=== PATIENT | male | born 1955 | race Caucasian/White ===

== ENCOUNTER 2021-03-30 06:22 | Outpatient (REF) | payer MEDICARE, SELFPAY ==
[2021-03-30 11:18] LABS: MANUAL DIFF FLAG NO
[2021-03-30 11:36] LABS: Basophils Absolute Auto 0.1 X10*3/uL (0.0-0.2); Basophils Percent Auto 0.9 % (0-2); Eosinophils Absolute Auto 0.3 X10*3/uL (0.0-0.4); Eosinophils Percent Auto 5.7 % (0-4); Hematocrit 45.7 % (42-52); Hemoglobin 14.9 g/dl (14.0-18.0); Imm Gran Abs Auto 0.04 X10*3/uL (0.00-0.03); Imm Gran Pct Auto 0.7 % (0.0-0.4); Lymphocytes Absolute Auto 2.1 X10*3/uL (1.2-4.9); Lymphocytes Percent Auto 36.7 % (20-40); Mean Corpuscular HGB Conc 32.6 g/dl (31.0-36.0); Mean Corpuscular Hemoglobin 28.7 pg (27.0-33.0); Mean Corpuscular Volume 87.9 fL (80-98); Mean Platelet Volume 10.2 fL (9.4-12.4); Monocytes Absolute Auto 0.4 X10*3/uL (0.1-1.2); Monocytes Percent Auto 6.3 % (2-11); Neutrophils Absolute Auto 2.8 X10*3/uL (2.0-8.3); Neutrophils Percent Auto 49.7 % (45-73); Platelet Count 210 X10*3/uL (160-400); Red Cell Distribution Width 13.2 % (11.0-16.0); White Blood Count 5.6 X10*3/uL (4.8-10.8)
[2021-03-30 12:01] LABS: Estimated Average Glucose 263 mg/dL; Hemoglobin A1c % 10.8 %
[2021-03-30 12:05] LABS: Alanine Aminotransferase 56 U/L (0-40); Albumin Level 4.2 g/dL (3.5-5.0); Alkaline Phosphatase 81 U/L (39-117); Anion Gap 16 (12-20); Aspartate Amino Transferase 32 U/L (5-37); Bilirubin Total 1.3 mg/dL (0.0-1.0); Blood Urea Nitrogen 16 mg/dL (9-16); Calcium 9.1 mg/dL (8.4-10.2); Carbon Dioxide 25 mmol/L (22-29); Chloride 103 mmol/L (96-108); Cholesterol 169 mg/dL; Estimated Glomerular Filt Rate > 60; Glucose Fasting 296 mg/dL (60-99); HDL Cholesterol 38 mg/dL; LDL Cholesterol Calculated 93 mg/dl; Potassium 3.9 mmol/L (3.3-5.1); Sodium 140 mmol/L (135-145); Total Protein 6.7 g/dL (6.5-8.0); Triglycerides 191 mg/dL
[2021-03-30 12:28] LABS: Free T4 (Free Thyroxine) 1.17 ng/dL (0.71-1.85); Thyroid Stimulating Hormone 6.23 uIU/mL (0.32-4.0)
[2021-03-30 12:34] LABS: Creatinine Urine 146.44 mg/dL; Microalbum/Creatinine Ratio Ur 180.2 ug/mg cr
[2021-03-30 13:00] LABS: Prostate Specific Antigen 2.69 ng/mL (<0.05-4.0)
== END 2021-03-30 06:23 | disposition home or self-care (01) ==
LOC: HO.HMGCLDS 06:22
PROVIDERS: PCP Internal Medicine; Visit Provider Internal Medicine
DX: E11.9 Type 2 diabetes mellitus without complications (principal); I10 Essential (primary) hypertension; G47.33 Obstructive sleep apnea (adult) (pediatric); E78.00 Pure hypercholesterolemia, unspecified; E03.9 Hypothyroidism, unspecified
CPT/HCPCS: 36415; 80053; 80061; 82043; 83036; 84153; 84439; 84443; 85025

== ENCOUNTER 2021-07-19 12:51 | Outpatient (REF) | payer MEDICARE, SELFPAY ==
[2021-07-19 13:58] LABS: MANUAL DIFF FLAG NO
[2021-07-19 14:03] LABS: Basophils Absolute Auto 0.1 X10*3/uL (0.0-0.2); Basophils Percent Auto 0.6 % (0-2); Eosinophils Absolute Auto 0.1 X10*3/uL (0.0-0.4); Eosinophils Percent Auto 1.4 % (0-4); Hemoglobin 16.1 g/dl (14.0-18.0); Imm Gran Abs Auto 0.04 X10*3/uL (0.00-0.03); Imm Gran Pct Auto 0.5 % (0.0-0.4); Lymphocytes Absolute Auto 2.3 X10*3/uL (1.2-4.9); Lymphocytes Percent Auto 26.9 % (20-40); Mean Corpuscular HGB Conc 32.9 g/dl (31.0-36.0); Mean Corpuscular Hemoglobin 28.3 pg (27.0-33.0); Mean Corpuscular Volume 86.3 fL (80-98); Mean Platelet Volume 10.6 fL (9.4-12.4); Monocytes Absolute Auto 0.5 X10*3/uL (0.1-1.2); Monocytes Percent Auto 5.3 % (2-11); Neutrophils Absolute Auto 5.6 X10*3/uL (2.0-8.3); Neutrophils Percent Auto 65.3 % (45-73); Platelet Count 254 X10*3/uL (160-400); Red Blood Count 5.68 X10*6/uL (4.60-5.80); Red Cell Distribution Width 13.5 % (11.0-16.0); White Blood Count 8.5 X10*3/uL (4.8-10.8)
[2021-07-19 14:18] LABS: Creatinine Urine 227.23 mg/dL
[2021-07-19 14:32] LABS: Alanine Aminotransferase 25 U/L (0-40); Albumin Level 4.2 g/dL (3.5-5.0); Alkaline Phosphatase 76 U/L (39-117); Anion Gap 13 (12-20); Aspartate Amino Transferase 17 U/L (5-37); Bilirubin Total 1.1 mg/dL (0.0-1.0); Blood Urea Nitrogen 13 mg/dL (9-16); Calcium 9.6 mg/dL (8.4-10.2); Carbon Dioxide 27 mmol/L (22-29); Chloride 105 mmol/L (96-108); Estimated Glomerular Filt Rate > 60; Glucose Random 145 mg/dL (60-115); Sodium 141 mmol/L (135-145); Total Protein 6.7 g/dL (6.5-8.0)
[2021-07-19 14:34] LABS: Estimated Average Glucose 171 mg/dL; Hemoglobin A1c % 7.6 %
[2021-07-19 14:41] LABS: Microalbum/Creatinine Ratio Ur 204.1 ug/mg cr
== END 2021-07-19 12:52 | disposition home or self-care (01) ==
LOC: HO.HMGCLDS 12:51
PROVIDERS: PCP Internal Medicine; Visit Provider Internal Medicine
DX: I10 Essential (primary) hypertension (principal); E11.9 Type 2 diabetes mellitus without complications
CPT/HCPCS: 36415; 80053; 82043; 83036; 85025

== ENCOUNTER 2021-10-31 07:06 | Outpatient (REF) | payer MEDICARE, SELFPAY ==
[2021-10-31 11:45] LABS: MANUAL DIFF FLAG NO
[2021-10-31 11:56] LABS: Basophils Percent Auto 0.5 % (0-2); Eosinophils Absolute Auto 0.1 X10*3/uL (0.0-0.4); Eosinophils Percent Auto 1.6 % (0-4); Hematocrit 51.3 % (42.0-52.0); Hemoglobin 16.7 g/dl (14.0-18.0); Imm Gran Abs Auto 0.04 X10*3/uL (0.00-0.03); Imm Gran Pct Auto 0.5 % (0.0-0.4); Lymphocytes Absolute Auto 2.1 X10*3/uL (1.2-4.9); Lymphocytes Percent Auto 27.6 % (20-40); Mean Corpuscular HGB Conc 32.6 g/dl (31.0-36.0); Mean Corpuscular Hemoglobin 28.4 pg (27.0-33.0); Mean Corpuscular Volume 87.2 fL (80.0-98.0); Mean Platelet Volume 11.2 fL (9.4-12.4); Monocytes Absolute Auto 0.6 X10*3/uL (0.1-1.2); Monocytes Percent Auto 7.4 % (2-11); Neutrophils Absolute Auto 4.6 x10*3/uL (2.0-8.3); Neutrophils Percent Auto 62.4 % (45-73); Platelet Count 231 X10*3/uL (160-400); Red Blood Count 5.88 X10*6/uL (4.60-5.80); Red Cell Distribution Width 13.8 % (11.0-16.0); White Blood Count 7.4 X10*3/uL (4.8-10.8)
[2021-10-31 12:13] LABS: Creatinine Urine 93.49 mg/dL; Microalbum/Creatinine Ratio Ur 374.3 ug/mg cr
[2021-10-31 12:26] LABS: Alanine Aminotransferase 21 U/L (0-40); Alkaline Phosphatase 86 U/L (39-117); Anion Gap 14 (12-20); Aspartate Amino Transferase 16 U/L (5-37); Bilirubin Total 1.6 mg/dL (0.0-1.0); Blood Urea Nitrogen 13 mg/dL (9-16); Calcium 9.3 mg/dL (8.4-10.2); Carbon Dioxide 27 mmol/L (22-29); Chloride 103 mmol/L (96-108); Estimated Glomerular Filt Rate > 60; Glucose Random 225 mg/dL (60-115); Potassium 3.9 mmol/L (3.3-5.1); Sodium 140 mmol/L (135-145); Total Protein 6.7 g/dL (6.5-8.0)
[2021-10-31 12:30] LABS: Free T4 (Free Thyroxine) 1.14 ng/dL (0.71-1.85); Thyroid Stimulating Hormone 1.67 uIU/mL (0.32-4.0)
[2021-10-31 12:35] LABS: Estimated Average Glucose 200 mg/dL; Hemoglobin A1c % 8.6 %
== END 2021-10-31 07:07 | disposition home or self-care (01) ==
LOC: HO.HMGCLDS 07:06
PROVIDERS: PCP Internal Medicine; Visit Provider Internal Medicine
DX: E03.9 Hypothyroidism, unspecified (principal); E11.9 Type 2 diabetes mellitus without complications; I10 Essential (primary) hypertension; G47.33 Obstructive sleep apnea (adult) (pediatric)
CPT/HCPCS: 36415; 80053; 82043; 83036; 84439; 84443; 85025

== ENCOUNTER 2022-05-03 06:08 | Outpatient (REF) | payer MEDICARE, SELFPAY ==
[2022-05-03 10:58] LABS: MANUAL DIFF FLAG NO
[2022-05-03 11:03] LABS: Basophils Absolute Auto 0.1 X10*3/uL (0.0-0.2); Basophils Percent Auto 0.8 % (0-2); Eosinophils Absolute Auto 0.2 X10*3/uL (0.0-0.4); Hematocrit 50.1 % (42.0-52.0); Hemoglobin 16.4 g/dl (14.0-18.0); Imm Gran Abs Auto 0.03 X10*3/uL (0.00-0.03); Imm Gran Pct Auto 0.4 % (0.0-0.4); Lymphocytes Absolute Auto 2.4 X10*3/uL (1.2-4.9); Lymphocytes Percent Auto 32.3 % (20-40); Mean Corpuscular HGB Conc 32.7 g/dl (31.0-36.0); Mean Corpuscular Hemoglobin 29.3 pg (27.0-33.0); Mean Corpuscular Volume 89.5 fL (80.0-98.0); Mean Platelet Volume 10.6 fL (9.4-12.4); Monocytes Absolute Auto 0.5 X10*3/uL (0.1-1.2); Monocytes Percent Auto 6.2 % (2-11); Neutrophils Absolute Auto 4.2 x10*3/uL (2.0-8.3); Neutrophils Percent Auto 57.3 % (45-73); Platelet Count 218 X10*3/uL (160-400); Red Cell Distribution Width 14.4 % (11.0-16.0); White Blood Count 7.3 X10*3/uL (4.8-10.8)
[2022-05-03 11:17] LABS: Estimated Average Glucose 123 mg/dL; Hemoglobin A1c % 5.9 %
[2022-05-03 11:26] LABS: Alanine Aminotransferase 19 U/L (0-40); Albumin Level 4.1 g/dL (3.5-5.0); Alkaline Phosphatase 73 U/L (39-117); Anion Gap 14 (12-20); Aspartate Amino Transferase 16 U/L (5-37); Blood Urea Nitrogen 15 mg/dL (9-16); Calcium 9.2 mg/dL (8.4-10.2); Carbon Dioxide 26 mmol/L (22-29); Chloride 107 mmol/L (96-108); Cholesterol 144 mg/dL; Estimated Glomerular Filt Rate > 60; Glucose Fasting 136 mg/dL (60-99); HDL Cholesterol 42 mg/dL; LDL Cholesterol Calculated 88 mg/dl; Potassium 3.9 mmol/L (3.3-5.1); Sodium 143 mmol/L (135-145); Total Protein 6.7 g/dL (6.5-8.0); Triglycerides 73 mg/dL
[2022-05-03 11:56] LABS: Creatinine Urine 100.46 mg/dL; Microalbum/Creatinine Ratio Ur 223.9 ug/mg cr
== END 2022-05-03 06:09 | disposition home or self-care (01) ==
LOC: HO.HMGCLDS 06:08
PROVIDERS: Visit Provider Internal Medicine
DX: E11.9 Type 2 diabetes mellitus without complications (principal); I10 Essential (primary) hypertension; E78.00 Pure hypercholesterolemia, unspecified
CPT/HCPCS: 36415; 80053; 80061; 82043; 83036; 85025

== ENCOUNTER 2022-05-18 11:31 | Outpatient (REF) | payer MEDICARE, SELFPAY ==
[2022-05-18 14:29] LABS: Free T4 (Free Thyroxine) 1.22 ng/dL (0.71-1.85); Prostate Specific Antigen Scr 2.84 ng/mL (<0.05-4.0); Thyroid Stimulating Hormone 0.44 uIU/mL (0.32-4.0)
== END 2022-05-18 11:32 | disposition home or self-care (01) ==
LOC: HO.HMGCLDS 11:31
PROVIDERS: Visit Provider Internal Medicine
DX: Z12.5 Encounter for screening for malignant neoplasm of prostate (principal); E03.9 Hypothyroidism, unspecified; N40.0 Benign prostatic hyperplasia without lower urinary tract symptoms
CPT/HCPCS: 36415; 84153; 84439; 84443

== ENCOUNTER 2022-11-06 13:42 | Outpatient (REF) | payer MEDICARE, SELFPAY ==
[2022-11-06 16:49] LABS: MANUAL DIFF FLAG NO
[2022-11-06 16:53] LABS: Basophils Absolute Auto 0.1 X10*3/uL (0.0-0.2); Basophils Percent Auto 0.6 % (0-2); Eosinophils Absolute Auto 0.1 X10*3/uL (0.0-0.4); Eosinophils Percent Auto 0.8 % (0-4); Hematocrit 48.1 % (42.0-52.0); Hemoglobin 15.9 g/dl (14.0-18.0); Imm Gran Abs Auto 0.04 X10*3/uL (0.00-0.03); Imm Gran Pct Auto 0.5 % (0.0-0.4); Lymphocytes Absolute Auto 2.2 X10*3/uL (1.2-4.9); Lymphocytes Percent Auto 25.3 % (20-40); Mean Corpuscular HGB Conc 33.1 g/dl (31.0-36.0); Mean Corpuscular Hemoglobin 28.5 pg (27.0-33.0); Mean Corpuscular Volume 86.2 fL (80.0-98.0); Mean Platelet Volume 10.6 fL (9.4-12.4); Monocytes Absolute Auto 0.5 X10*3/uL (0.1-1.2); Monocytes Percent Auto 5.5 % (2-11); Neutrophils Percent Auto 67.3 % (45-73); Platelet Count 275 X10*3/uL (160-400); Red Blood Count 5.58 X10*6/uL (4.60-5.80); Red Cell Distribution Width 12.7 % (11.0-16.0); White Blood Count 8.9 X10*3/uL (4.8-10.8)
[2022-11-06 17:44] LABS: Alanine Aminotransferase 24 U/L (0-40); Albumin Level 4.2 g/dL (3.5-5.0); Alkaline Phosphatase 70 U/L (39-117); Anion Gap 15 (12-20); Aspartate Amino Transferase 18 U/L (5-37); Bilirubin Total 1.7 mg/dL (0.0-1.0); Blood Urea Nitrogen 18 mg/dL (9-16); Calcium 9.2 mg/dL (8.4-10.2); Carbon Dioxide 29 mmol/L (22-29); Chloride 101 mmol/L (96-108); Creatinine Urine 111.11 mg/dL; Estimated Glomerular Filt Rate > 60; Glucose Random 98 mg/dL (60-115); Microalbum/Creatinine Ratio Ur 199.8 ug/mg cr; Potassium 3.9 mmol/L (3.3-5.1); Sodium 141 mmol/L (135-145); Thyroid Stimulating Hormone 0.99 uIU/mL (0.32-4.0); Total Protein 6.8 g/dL (6.5-8.0)
[2022-11-07 05:17] LABS: Estimated Average Glucose 134 mg/dL; Hemoglobin A1c % 6.3 %
== END 2022-11-06 13:43 | disposition home or self-care (01) ==
LOC: HO.HMGCLDS 13:42
PROVIDERS: PCP Internal Medicine; Visit Provider Internal Medicine
DX: E11.9 Type 2 diabetes mellitus without complications (principal); E03.9 Hypothyroidism, unspecified; I10 Essential (primary) hypertension; G47.33 Obstructive sleep apnea (adult) (pediatric)
CPT/HCPCS: 36415; 80053; 82043; 83036; 84439; 84443; 85025

== ENCOUNTER 2023-03-12 09:44 | Outpatient (REF) | payer MEDICARE, SELFPAY ==
[2023-03-12 11:21] LABS: MANUAL DIFF FLAG NO
[2023-03-12 11:43] LABS: Basophils Absolute Auto 0.1 X10*3/uL (0.0-0.2); Basophils Percent Auto 0.9 % (0-2); Eosinophils Absolute Auto 0.1 X10*3/uL (0.0-0.4); Eosinophils Percent Auto 1.5 % (0-4); Estimated Average Glucose 128 mg/dL; Hemoglobin 18.1 g/dl (14.0-18.0); Hemoglobin A1c % 6.1 %; Imm Gran Abs Auto 0.04 X10*3/uL (0.00-0.03); Imm Gran Pct Auto 0.5 % (0.0-0.4); Lymphocytes Absolute Auto 2.1 X10*3/uL (1.2-4.9); Lymphocytes Percent Auto 27.8 % (20-40); Mean Corpuscular HGB Conc 32.7 g/dl (31.0-36.0); Mean Corpuscular Hemoglobin 28.8 pg (27.0-33.0); Mean Corpuscular Volume 87.9 fL (80.0-98.0); Mean Platelet Volume 10.4 fL (9.4-12.4); Monocytes Absolute Auto 0.4 X10*3/uL (0.1-1.2); Monocytes Percent Auto 5.8 % (2-11); Neutrophils Absolute Auto 4.7 x10*3/uL (2.0-8.3); Neutrophils Percent Auto 63.5 % (45-73); Platelet Count 233 X10*3/uL (160-400); Red Blood Count 6.29 X10*6/uL (4.60-5.80); Red Cell Distribution Width 13.4 % (11.0-16.0); White Blood Count 7.4 X10*3/uL (4.8-10.8)
[2023-03-12 11:44] LABS: Hematocrit 55.3 % (42.0-52.0)
[2023-03-12 12:20] LABS: Creatinine Urine 137.58 mg/dL; Microalbum/Creatinine Ratio Ur 262.3 ug/mg cr
[2023-03-12 12:20] LABS: Alanine Aminotransferase 27 U/L (0-40); Albumin Level 4.5 g/dL (3.5-5.0); Alkaline Phosphatase 74 U/L (39-117); Anion Gap 12 (12-20); Aspartate Amino Transferase 20 U/L (5-37); Bilirubin Total 1.7 mg/dL (0.0-1.0); Blood Urea Nitrogen 15 mg/dL (9-16); Carbon Dioxide 30 mmol/L (22-29); Chloride 106 mmol/L (96-108); Estimated Glomerular Filt Rate > 60; Glucose Random 131 mg/dL (60-115); Potassium 4.4 mmol/L (3.3-5.1); Sodium 144 mmol/L (135-145); Total Protein 7.2 g/dL (6.5-8.0)
[2023-03-12 12:27] LABS: Free T4 (Free Thyroxine) 1.06 ng/dL (0.71-1.85); Thyroid Stimulating Hormone 1.52 uIU/mL (0.32-4.0)
== END 2023-03-12 09:45 | disposition home or self-care (01) ==
LOC: HO.HMGCLDS 09:44
PROVIDERS: PCP Internal Medicine; Visit Provider Internal Medicine
DX: E11.9 Type 2 diabetes mellitus without complications (principal); I10 Essential (primary) hypertension; E03.9 Hypothyroidism, unspecified
CPT/HCPCS: 36415; 80053; 82043; 83036; 84439; 84443; 85025

== ENCOUNTER 2023-04-10 08:22 | Day surgery (SDC) | payer MEDICARE, SELFPAY ==
--- NOTE | 2023-04-09 12:21 | P.CONAN_ITS ---
Documented by User: Fifi Vernon NP 04/09/23 12:24 HPI - Anesthesia Eval Consult details Narrative: 67yo M for Colonoscopy [facility] Past Medical History Medical History (Updated 04/09/23 @ 12:22 by Fifi Vernon NP) Diabetes HLD (hyperlipidemia) HTN (hypertension) Hypothyroid Nephrolithiasis CONCEPCION (obstructive sleep apnea) Surgical History Surgical History (Updated 04/10/23 @ 09:14 by Katy Oro RN) Hx of colonoscopy Social History Social History Patient Tobacco Use Status: Former Tobacco user Are you DNR?: No Advance Directives: No Advance Directives Information Provided: Yes Nutrition Risks: No Nutritional Risk Meds Allergies Allergy/AdvReac Type Severity Reaction Status Date / Time ibuprofen [From Motrin] AdvReac Mild NAUSEA & Verified 04/10/23 09:14 VOMITING PCN Allergy Unknown unknown Uncoded 04/10/23 09:14 reaction Home Medications Medication Instructions Recorded Confirmed Last Taken Type dulaglutide 0.75 mg/0.5 mL mg subcut QWEEK 04/09/23 04/09/23 Unknown History subcutaneous pen injector (Trulicity) glipizide 5 mg tablet 10 mg PO BID 04/09/23 04/09/23 Unknown History levothyroxine 200 mcg tablet 200 mcg PO DAILY 04/09/23 04/09/23 Unknown History lisinopril 5 mg tablet 5 mg PO DAILY 04/09/23 04/09/23 Unknown History metformin 500 mg tablet 1,000 mg PO BID 04/09/23 04/09/23 Unknown History simvastatin 20 mg tablet 20 mg PO BEDTIME 04/09/23 04/09/23 Unknown History Exam Exam Date and Time: April 09, 2023 1221 Pertinent Lab Results Pertinent Lab Results: Laboratory Tests 03/12/23 03/12/23 09:50 09:50 WBC 7.4 Hgb 18.1 H Hct 55.3 H Sodium 144 Potassium 4.4 Chloride 106 Carbon Dioxide 30 H BUN 15 Creatinine 1.04 Assessment and Plan Assessment Anesthesia Assessment: Chart Reviewed Documented by User: Antoine Campa MD 04/10/23 09:20 [facility] Past Medical History Medical History (Updated 04/09/23 @ 12:22 by Fifi Vernon NP) Diabetes HLD (hyperlipidemia) HTN (hypertension) Hypothyroid Nephrolithiasis CONCEPCION (obstructive sleep apnea) Family History Family history of problems with anesthesia: No Surgical History Surgical History (Updated 04/10/23 @ 09:14 by Katy Oro RN) Hx of colonoscopy History of Problems with Anesthesia: No Social History Social History Patient Tobacco Use Status: Former Tobacco user Are you DNR?: No Advance Directives: No Advance Directives Information Provided: Yes Nutrition Risks: No Nutritional Risk Meds Allergies Allergy/AdvReac Type Severity Reaction Status Date / Time ibuprofen [From Motrin] AdvReac Mild NAUSEA & Verified 04/10/23 09:14 VOMITING PCN Allergy Unknown unknown Uncoded 04/10/23 09:14 reaction Home Medications Medication Instructions Recorded Confirmed Last Taken Type dulaglutide 0.75 mg/0.5 mL mg subcut QWEEK 04/09/23 04/09/23 Unknown History subcutaneous pen injector (Trulicity) glipizide 5 mg tablet 10 mg PO BID 04/09/23 04/09/23 Unknown History levothyroxine 200 mcg tablet 200 mcg PO DAILY 04/09/23 04/09/23 Unknown History lisinopril 5 mg tablet 5 mg PO DAILY 04/09/23 04/09/23 Unknown History metformin 500 mg tablet 1,000 mg PO BID 04/09/23 04/09/23 Unknown History simvastatin 20 mg tablet 20 mg PO BEDTIME 04/09/23 04/09/23 Unknown History Exam Airway Mallampati Class: III TM Dist: >3cm Neck ROM: Limited Heart: rrr Lungs: cta Assessment and Plan Assessment Anesthesia Assessment: Anesthesia Plan Discussed Final Anesthetic Review Family History of Problems with Anesthesia: No History of Problems with Anesthesia: No NPO: Yes ASA Class: III Final Preanesthetic Review: No Changes in Pt Med Stat, Meds/Allgs Chart Reviewed, Consent Obtained/Reviewed and Anes Risks/Benef Reviewed Patient Risk: Intermediate Procedure Risk: Low Anesthetic Plan Anesthetic Plan: MAC: and Agree w/ Assess. and Plan Disposition: Standard PACU
[2023-04-10] MEDS: Lactated Ringers 1,000 ML 100 ML IVCONT (08:45)
[2023-04-10 08:57] VITALS: BMI 35.5
[2023-04-10 08:59] VITALS: BP 160/76; PULSE 82; RESP 18; TEMP 36.6; O2SAT 97
[2023-04-10 09:14] LABS: Glucose, Whole Blood 172 mg/dL (60-115)
--- NOTE | 2023-04-10 09:35 | MHC.SHP ---
Pre-Procedural Eval Section A Date of Service: 04/10/23 The patient is an INPATIENT: No Changes since office visit: No Cold of Flu in the past 2 weeks, No New Medical Problems, No Changes in Medication and No Patient answered all questions The History & Physical has been completed within 30 days and I have reviewed it.: Yes Section B Chief Complaint: Encounter for screening for malignant neoplasm Allergies: Allergies Allergy/AdvReac Type Severity Reaction Status Date / Time ibuprofen [From Motrin] AdvReac Mild NAUSEA & Verified 04/10/23 09:14 VOMITING PCN Allergy Unknown unknown Uncoded 04/10/23 09:14 reaction Plan I have reviewed the history and physical and performed a pertinent physical examination on my patient. No changes have occurred unless specified. Time Spent With Patient Time: Total time managing care of this patient today ____ minutes.
--- NOTE | 2023-04-10 10:16 | PM.OP ---
Brief Operative Note Date of Service: 04/10/23 Pre-op diagnosis: screening Post-op diagnosis: same Procedure: colonoscopy Surgeon: Dat Hyde Anesthesia: MAC Was an University Teacher used for this Procedure?: No Estimated blood loss (mL): 5 Pathology: other Condition: stable Disposition: PACU
[2023-04-10 10:22] VITALS: BP 91/57; PULSE 73; RESP 20; TEMP 36.4; O2SAT 113
[2023-04-10 10:37] VITALS: BP 113/65; PULSE 73; RESP 20; TEMP 36.4; O2SAT 94
--- NOTE | 2023-04-10 12:00 | OP_ITS ---
DATE OF SERVICE: 04/10/2023 SURGEON: Dat Hyde MD INDICATIONS: Colon cancer screening. PREOPERATIVE DIAGNOSIS: POSTOPERATIVE DIAGNOSIS: PROCEDURE PERFORMED: Colonoscopy to the terminal ileum with snare polypectomy and biopsy. ESTIMATED BLOOD LOSS: COMPLICATIONS: ANESTHESIA: Monitored anesthesia care. ASSISTANTS: SPECIMENS: DESCRIPTION OF PROCEDURE: A history and physical was performed the risks and benefits of the procedure were explained to the patient. Informed consent was obtained. The patient was placed in the left lateral decubitus position. A digital rectal exam was performed and was found to be normal. The Olympus pediatric video colonoscope was introduced into the rectum and advanced to the cecum. The cecum was identified by transillumination, palpation, and identification of ileocecal valve. Examination was performed. The scope was removed. He tolerated the procedure well and was returned to the recovery area in stable condition. FINDINGS: The terminal ileum was examined and appeared normal. The visualized colonic mucosa was normal. The quality of the prep was good. Three polyps were identified, 2 were removed with a cold snare measuring less than 10 mm. These were located at 50 and 15 cm. At 25 cm was a less than 5 mm sessile polyp that was removed with a biopsy forceps. Retroflexed examination showed internal hemorrhoids that were moderate in size. There was moderate sigmoid diverticulosis with scattered diverticula throughout the remainder of the colon. IMPRESSION: Colon polyps. RECOMMENDATION: Follow up the biopsy results. MD PIOTR Cabrera/CARLA / [id number]
== END 2023-04-10 11:03 | disposition home or self-care (01) ==
PROVIDERS: PCP Internal Medicine; Visit Provider Internal Medicine Gastroenterology
PROC: 0DJD8ZZ Inspection of Lower Intestinal Tract, Via Natural or Artificial Opening Endoscopic (ICD-10-PCS; CPT 45378; principal; 2023-04-10 09:30)
DX: Z12.11 Encounter for screening for malignant neoplasm of colon (principal); D12.5 Benign neoplasm of sigmoid colon; K63.5 Polyp of colon; K57.30 Diverticulosis of large intestine without perforation or abscess without bleeding; K64.8 Other hemorrhoids; I10 Essential (primary) hypertension; E78.00 Pure hypercholesterolemia, unspecified; E11.9 Type 2 diabetes mellitus without complications; E03.9 Hypothyroidism, unspecified; G47.33 Obstructive sleep apnea (adult) (pediatric); Z79.84 Long term (current) use of oral hypoglycemic drugs; Z79.899 Other long term (current) drug therapy; Z88.0 Allergy status to penicillin; Z87.442 Personal history of urinary calculi; Z99.89 Dependence on other enabling machines and devices
CPT/HCPCS: 45385; 45380; 82947; 88305

== ENCOUNTER 2023-07-16 06:45 | Outpatient (REF) | payer MEDICARE, SELFPAY ==
[2023-07-16 11:20] LABS: MANUAL DIFF FLAG NO
[2023-07-16 11:37] LABS: Basophils Absolute Auto 0.1 X10*3/uL (0.0-0.2); Basophils Percent Auto 0.7 % (0-2); Eosinophils Absolute Auto 0.2 X10*3/uL (0.0-0.4); Eosinophils Percent Auto 2.2 % (0-4); Hematocrit 50.4 % (42.0-52.0); Hemoglobin 16.6 g/dl (14.0-18.0); Imm Gran Abs Auto 0.02 X10*3/uL (0.00-0.03); Imm Gran Pct Auto 0.3 % (0.0-0.4); Lymphocytes Absolute Auto 1.9 X10*3/uL (1.2-4.9); Lymphocytes Percent Auto 25.1 % (20-40); Mean Corpuscular HGB Conc 32.9 g/dl (31.0-36.0); Mean Corpuscular Hemoglobin 28.9 pg (27.0-33.0); Mean Corpuscular Volume 87.7 fL (80.0-98.0); Mean Platelet Volume 10.4 fL (9.4-12.4); Monocytes Absolute Auto 0.5 X10*3/uL (0.1-1.2); Monocytes Percent Auto 6.7 % (2-11); Neutrophils Absolute Auto 4.8 x10*3/uL (2.0-8.3); Platelet Count 237 X10*3/uL (160-400); Red Blood Count 5.75 X10*6/uL (4.60-5.80); Red Cell Distribution Width 13.3 % (11.0-16.0); White Blood Count 7.4 X10*3/uL (4.8-10.8)
[2023-07-16 11:38] LABS: Appearance Urine Clear; Color Urine Yellow; Glucose Urine UA Negative (Negative); Leukocyte Esterase Urine Negative (Negative); Nitrite Urine Negative (Negative); PH 5.5 (5.0-9.0); UMIC TRIGGER UA YES; Urine Blood Negative (Negative); Urine Ketones Negative (Negative); Urine Protein 30 (1+) mg/dL (Neg-Trace)
[2023-07-16 11:41] LABS: Bacteria Urine None Seen (None Seen); Hyaline Casts Urine 0-2 /LPF (0-2); RBC Urine 0-2 /HPF (0-2); Squamous Epithelial Cell Urine 0-2 /HPF (0-2); WBC Urine 0-5 /HPF (0-5)
[2023-07-16 12:12] LABS: Estimated Average Glucose 114 mg/dL; Hemoglobin A1c % 5.6 % (<6.0)
[2023-07-16 12:22] LABS: Alanine Aminotransferase 29 U/L (0-40); Alkaline Phosphatase 63 U/L (39-117); Anion Gap 14 (12-20); Aspartate Amino Transferase 22 U/L (5-37); Bilirubin Total 1.9 mg/dL (0.0-1.0); Blood Urea Nitrogen 17 mg/dL (9-16); Calcium 9.6 mg/dL (8.4-10.2); Carbon Dioxide 25 mmol/L (22-29); Chloride 107 mmol/L (96-108); Cholesterol 145 mg/dL (<200); Estimated Glomerular Filt Rate > 60; Free T4 (Free Thyroxine) 1.23 ng/dL (0.71-1.85); Glucose Fasting 140 mg/dL (60-99); HDL Cholesterol 37 mg/dL (>40); LDL Cholesterol Calculated 93 mg/dL (<100); Potassium 3.9 mmol/L (3.3-5.1); Sodium 142 mmol/L (135-145); Thyroid Stimulating Hormone 0.58 uIU/mL (0.32-4.0); Total Protein 7.1 g/dL (6.5-8.0); Triglycerides 79 mg/dL (<150)
[2023-07-16 12:36] LABS: Prostate Specific Antigen Scr 3.75 ng/mL (<0.05-4.0)
[2023-07-16 13:07] LABS: Creatinine Urine 130.91 mg/dL; Microalbum/Creatinine Ratio Ur 135.2 ug/mg cr (<30)
== END 2023-07-16 06:46 | disposition home or self-care (01) ==
LOC: HO.HMGCLDS 06:45
PROVIDERS: PCP Internal Medicine; Visit Provider Internal Medicine
DX: Z12.5 Encounter for screening for malignant neoplasm of prostate (principal); E11.9 Type 2 diabetes mellitus without complications; I10 Essential (primary) hypertension; E78.00 Pure hypercholesterolemia, unspecified; N40.0 Benign prostatic hyperplasia without lower urinary tract symptoms; E03.9 Hypothyroidism, unspecified
CPT/HCPCS: 36415; 80053; 80061; 81001; 82043; 83036; 84153; 84439; 84443; 85025

== ENCOUNTER 2023-08-15 14:04 | Outpatient (REF) | payer MEDICARE, SELFPAY ==
--- NOTE | ~2023-08-15 | XR_ITS ---
EXAMINATION: XR CHEST 2 VIEWS CLINICAL INFORMATION: Cough and congestion. COMPARISON: Chest radiographs dated 02/24/2016. TECHNIQUE: Frontal and lateral views of the chest were obtained. FINDINGS: The heart, great vessels, pulmonary vasculature and mediastinum are normal. The lungs show no focal infiltrate, effusion or pneumothorax. There is no acute osseous abnormality. XR/XR chest 2V IMPRESSION: No active cardiopulmonary disease.
== END 2023-08-15 14:05 | disposition home or self-care (01) ==
LOC: HO.XRAY 14:04
PROVIDERS: PCP Internal Medicine; Visit Provider Internal Medicine
DX: R05.9 Cough, unspecified (principal); R09.89 Other specified symptoms and signs involving the circulatory and respiratory systems
CPT/HCPCS: 71046

== ENCOUNTER 2023-09-13 14:59 | Outpatient (REF) | payer MEDICARE, SELFPAY ==
--- NOTE | ~2023-09-13 | XR_ITS ---
EXAMINATION: XR CHEST CLINICAL INFORMATION: Cough, congestion COMPARISON: 08/15/2023, 02/24/2016 TECHNIQUE: 2 views of the chest were obtained. FINDINGS: There is no gross pneumothorax. Borderline enlarged cardiac silhouette. Increased density and size of bilateral isaiah with increased bilateral central, perihilar markings, bilateral lower lobe predominant. No pleural effusion. Mild degenerative changes in the thoracic spine. XR/XR chest 2V IMPRESSION: Borderline enlarged cardiac silhouette. Increased density and size of bilateral isaiah with increased bilateral central, perihilar markings, bilateral lower lobe predominant. Differential considerations include edema versus infectious/inflammatory process. Correlation with clinical exam recommended to determine further management. CT scan of the chest should be considered for further evaluation. This study was presented today 09/17/2023 at 11:06 AM for interpretation. PSA staff will provide results to referring provider at this time.
[2023-09-13 16:08] LABS: Influenza A PCR NEGATIVE (Negative); Influenza B PCR NEGATIVE (Negative); Resp Syncy Virus RNA Qual PCR NEGATIVE (Negative); SARS COV2 PCR INHOUSE NEGATIVE (Negative)
== END 2023-09-13 15:00 | disposition home or self-care (01) ==
LOC: HO.XRAY 14:59
PROVIDERS: PCP Internal Medicine; Visit Provider Internal Medicine
DX: Z11.52 Encounter for screening for COVID-19 (principal); Z20.822 Contact with and (suspected) exposure to COVID-19; R05.9 Cough, unspecified
CPT/HCPCS: 0241U; 71046

== ENCOUNTER 2023-10-26 08:39 | Outpatient (AMB) | payer MEDICARE, SELFPAY ==
--- NOTE | 2023-10-25 21:03 | A.OFFVIS_ITS ---
Intake Intake Visit Reasons: LDCT SD Allergies ibuprofen [From Motrin] Adverse Reaction (Mild, Verified 04/10/23 09:14) NAUSEA & VOMITING PCN Allergy (Unknown, Uncoded 04/10/23 09:14) unknown reaction HPI HPI Comments History of Present Illness Details Marco is a pleasant 68 year old male, former cigarette smoker, quit 10 years ago, however continues to smoke a cigar daily with a 45 PYH. Patient has been smoking since age 30 for 30+ years at 1.5 ppd. He reports quitting intermittently. Denies marijuana use. Denies exposure to chemicals or substances like asbestos. Reports second hand smoke exposure. Reports father and mother had lung cancer. Denies personal history of cancers. Denies chest CT in last year. Reports traveling to the [facility] in the last 15 years. Patient reports CONCEPCION, has been on CPAP therapy x 10 years. Denies fever, chills, chest pain, new cough, hemoptysis or unintentional weight loss. Lung Cancer Screening Questionnaire reviewed with patient by provider. Shared Decision Making Completed. Discussed in detail with patient, the risk versus benefit of LDCT screening. Patient in agreement of proceeding with scan. [facility] Medical History (Updated 10/26/23 @ 09:16 by Page Aquino NP) HLD (hyperlipidemia) HTN (hypertension) Diabetes Hypothyroid CONCEPCION (obstructive sleep apnea) Tubular adenoma of colon Nephrolithiasis Surgical History (Updated 10/01/23 @ 15:41 by Corrine Fuller PA-C) History of tonsillectomy History of lithotripsy History of colonoscopy Family History (Updated 10/01/23 @ 15:37 by Corrine Fuller PA-C) Father Lung cancer Mother Hx of CABG Social History Patient Tobacco Use Status: Former Tobacco user Assessment & Plan Assessment & Plan (1) Nicotine dependence: Code(s): F17.200 - Nicotine dependence, unspecified, uncomplicated Plan Shared decision-making visit completed today in office. This patient meets criteria for LDCT for lung cancer screening purposes and is asymptomatic. Offered smoking cessation. Patient has been scheduled for a low dose chest CT for screening purposes at [facility]. We discussed how the results will be obtained depending on CT findings. RADS 1 and RADS 2 will receive a letter with results and will follow up for annual LDCT. Patient informed they will be contacted at later date to schedule upcoming LDCT scan. RADS 3 and RADS 4 will receive a telephone call, or an office visit after reviewing case at our Lung Cancer Conference to determine when the next LDCT will be scheduled or further interventions that may be needed. Discussed importance of screening program and compliance with yearly LDCT scan as scheduled. Risks, benefits, and alternatives were discussed in detail and patient agrees to proceed. Risks discussed include but are not limited to: radiation exposure and possibility of additional intervention for benign disease. Benefits include detection of lung cancer at an early stage. A copy of today's visit and LDCT results will be sent to patient's PCP. Incidental findings on LDCT are PCP's responsibility. If there are incidental findings, our office will ensure that PCP office is aware of these findings. All questions were answered and patient is in agreement of plan. Coding Level of Care Code Lung Cancer Screening G0296 Diagnoses Nicotine dependence F17.200
== END 2023-10-26 10:02 | disposition home or self-care (01) ==
PROVIDERS: PCP Internal Medicine; Visit Provider Nurse Practitioner Family
DX: F17.200 Nicotine dependence, unspecified, uncomplicated (principal)
CPT/HCPCS: G0296

== ENCOUNTER 2023-10-26 09:14 | Outpatient (REF) | payer MEDICARE, SELFPAY ==
--- NOTE | ~2023-10-26 | CT_ITS ---
EXAMINATION: CT CHEST LOW-DOSE SCREENING WITHOUT CONTRAST HISTORY: Asymptomatic patient meeting criteria for lung screening. PATIENT PACK-YEAR HISTORY: 43 Current Smoker: No If former smoker, years since quittin COMPARISON: None TECHNIQUE: Multidetector volumetric non-contrast CT imaging of the chest was performed using low dose screening CT technique. Axial thin section 0.625 mm reformations in soft tissue and lung windows were obtained. Sagittal and coronal reformations were obtained. Axial MIP images were also created and reviewed. RECONSTRUCTED WIDTH: 1.25 mm x 1.25 mm TOTAL EXAM DLP: 118 mGy-cm CTDIvol: 2.98 L mGy FINDINGS: LUNGS: Mild centrilobular emphysema. 4 mm pulmonary nodule in the right lower lobe on image 313. 4 mm pulmonary nodule in the left upper lobe on image 213. No focal consolidation. Central airways are patent. PLEURA: No pleural effusion. LYMPH NODES: Numerous shotty subcentimeter mediastinal and hilar lymph nodes. MEDIASTINUM: Great vessels are of normal caliber. Heart is enlarged. No pericardial effusion. CORONARY ARTERY CALCIFICATIONS: Moderate. CHEST WALL/BREASTS: No acute abnormality. UPPER ABDOMEN: This study was performed without contrast and with lower than standard dose, reducing the sensitivity for detection of small lesions in the upper abdomen. OSSEOUS STRUCTURES: No destructive bone lesions. CT/CT lung screening IMPRESSION: 4 mm pulmonary nodules. LUNG-RADS CATEGORY ASSESSMENT: 2. Benign appearance or behavior. Nodules with a very low likelihood of becoming a clinically active cancer due to size or lack of growth. Continue annual screening with low-dose CT in 12 months. Probability of malignancy less than 1%. INCIDENTAL FINDINGS (S CATEGORY): Finding: No incidental findings. Significance category: Normal or normal variant. RECOMMENDATION: Low dose lung CT. overall in 1 year. Visual estimate of coronary calcified plaque burden: Moderate. However, this exam cannot replace a dedicated cardiac CT calcium score for accurate assessment. LUNG-RADS CATEGORY: 2 -- BENIGN
== END 2023-10-26 09:15 | disposition home or self-care (01) ==
LOC: HO.CT 09:14
PROVIDERS: PCP Internal Medicine; Visit Provider Nurse Practitioner Family
DX: Z12.2 Encounter for screening for malignant neoplasm of respiratory organs (principal); Z87.891 Personal history of nicotine dependence; E11.9 Type 2 diabetes mellitus without complications; I10 Essential (primary) hypertension; E03.9 Hypothyroidism, unspecified
CPT/HCPCS: 36415; 71271; 80053; 82043; 82570; 83036; 84439; 84443; 85025; G0296

== ENCOUNTER 2023-10-26 12:23 | Outpatient (REF) | payer MEDICARE, SELFPAY ==
[2023-10-26 13:47] LABS: MANUAL DIFF FLAG NO
[2023-10-26 13:56] LABS: Basophils Absolute Auto 0.1 X10*3/uL (0.0-0.2); Basophils Percent Auto 0.8 % (0-2); Eosinophils Absolute Auto 0.1 X10*3/uL (0.0-0.4); Eosinophils Percent Auto 0.9 % (0-4); Hematocrit 48.9 % (42.0-52.0); Hemoglobin 16.1 g/dl (14.0-18.0); Imm Gran Abs Auto 0.03 X10*3/uL (0.00-0.03); Imm Gran Pct Auto 0.4 % (0.0-0.4); Lymphocytes Absolute Auto 1.8 X10*3/uL (1.2-4.9); Lymphocytes Percent Auto 23.8 % (20-40); Mean Corpuscular HGB Conc 32.9 g/dl (31.0-36.0); Mean Corpuscular Hemoglobin 28.8 pg (27.0-33.0); Mean Corpuscular Volume 87.5 fL (80.0-98.0); Mean Platelet Volume 10.2 fL (9.4-12.4); Monocytes Absolute Auto 0.4 X10*3/uL (0.1-1.2); Monocytes Percent Auto 5.8 % (2-11); Neutrophils Absolute Auto 5.2 x10*3/uL (2.0-8.3); Neutrophils Percent Auto 68.3 % (45-73); Platelet Count 266 X10*3/uL (160-400); Red Blood Count 5.59 X10*6/uL (4.60-5.80); Red Cell Distribution Width 14.6 % (11.0-16.0); White Blood Count 7.7 X10*3/uL (4.8-10.8)
[2023-10-26 14:11] LABS: Estimated Average Glucose 131 mg/dL; Hemoglobin A1c % 6.2 % (<6.0)
[2023-10-26 14:27] LABS: Alanine Aminotransferase 30 U/L (0-40); Albumin Level 3.8 g/dL (3.5-5.0); Alkaline Phosphatase 71 U/L (39-117); Anion Gap 10 (12-20); Aspartate Amino Transferase 19 U/L (5-37); Bilirubin Total 1.9 mg/dL (0.0-1.0); Blood Urea Nitrogen 19 mg/dL (9-16); Calcium 9.4 mg/dL (8.4-10.2); Carbon Dioxide 30 mmol/L (22-29); Chloride 108 mmol/L (96-108); Estimated Glomerular Filt Rate > 60; Glucose Random 147 mg/dL (60-115); Sodium 144 mmol/L (135-145); Total Protein 6.7 g/dL (6.5-8.0)
[2023-10-26 14:52] LABS: Creatinine Urine 144.27 mg/dL; Microalbum/Creatinine Ratio Ur 187.8 ug/mg cr (<30)
[2023-10-26 15:12] LABS: Thyroid Stimulating Hormone 2.07 uIU/mL (0.32-4.0)
[2023-10-26 20:17] LABS: Free T4 (Free Thyroxine) 1.37 ng/dL (0.71-1.85)
== END 2023-10-26 12:24 | disposition home or self-care (01) ==
LOC: HO.HMGCLDS 12:23
PROVIDERS: PCP Internal Medicine; Visit Provider Internal Medicine
DX: E11.9 Type 2 diabetes mellitus without complications (principal); I10 Essential (primary) hypertension; E03.9 Hypothyroidism, unspecified
CPT/HCPCS: 36415; 80053; 82043; 82570; 83036; 84439; 84443; 85025

== ENCOUNTER 2023-11-01 12:20 | Outpatient (REF) | payer MEDICARE, SELFPAY ==
[2023-11-01 16:51] LABS: D Dimer High Sensitivity 215 NG/ML
[2023-11-01 17:04] LABS: C Reactive Protein 0.29 mg/dL (< or = 0.50)
[2023-11-01 17:16] LABS: B Type Natriuretic Peptide 189 pg/mL (<100)
== END 2023-11-01 12:21 | disposition home or self-care (01) ==
LOC: HO.HMGCLDS 12:20
PROVIDERS: PCP Internal Medicine; Visit Provider Internal Medicine
DX: R06.02 Shortness of breath (principal)
CPT/HCPCS: 36415; 82550; 83880; 85379; 86140

== ENCOUNTER → 2023-11-21 14:48 | Outpatient (REF) | payer MEDICARE, SELFPAY | LOC: HO.CARD 14:48 | PROVIDERS: PCP Internal Medicine; Visit Provider Internal Medicine | DX: I45.2 Bifascicular block (principal) | CPT/HCPCS: 93306; 93356 ==

== ENCOUNTER → 2023-11-21 14:52 | Outpatient (BNV) | payer MEDICARE, SELFPAY | PROVIDERS: PCP Internal Medicine; Visit Provider Internal Medicine Cardiovascular Disease | DX: I34.0 Nonrheumatic mitral (valve) insufficiency (principal); I34.81 Nonrheumatic mitral (valve) annulus calcification | CPT/HCPCS: 93306 ==

== ENCOUNTER 2023-11-22 12:44 | Outpatient (AMB) | payer MEDICARE, SELFPAY ==
[2023-11-22 12:51] VITALS: BP 138/82; PULSE 86; BMI 36.8
--- NOTE | 2023-11-22 12:51 | MHC.OFFVIS ---
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 Intake Note: New patient abnormal ekg was having sob Gas Transfer Operator Required: No Fpga Design Engineer: Fpga Design Engineer Present Accompanied by: Spouse Allergies ibuprofen [From Motrin] Adverse Reaction (Mild, Verified 04/10/23 09:14) NAUSEA & VOMITING PCN Allergy (Unknown, Uncoded 04/10/23 09:14) unknown reaction Medication List - Last Reconciled 11/22/23 by Yovany Mirza MD dulaglutide (Trulicity) mg subcut QWEEK glipizide 5 mg PO BID levothyroxine 200 mcg PO DAILY lisinopril 5 mg PO DAILY metformin 500 mg PO BID simvastatin 20 mg PO BEDTIME HPI HPI Comments History of Present Illness Details thank you for referring Marco in cardiology consultation today for abnormal echocardiogram which shows severely reduced LV systolic dysfunction and dilated left ventricular cavity. Patient is a pleasant 68-year-old male with longstanding history of diabetes, hypertension, sleep apnea on BiPAP therapy and obesity. Patient also has chronic smoking history and is trying to quit. Patient says in August had a prolonged course of recurrent bronchitis requiring multiple antibiotic treatment require long-term to treat. He notice that on October 22 there was sudden switch any started noticing symptoms with exertional intolerance. He started noting symptoms of exertional shortness of breath which did not have prior to his viral/ bronchial inflammation. Since then patient remains persistently symptomatic with exertion. He denies although any symptoms of orthopnea, PND, leg edema, abdominal distension. He also denies any symptoms exertional chest discomfort. He denies any symptoms of lightheadedness, syncope. Denies any symptoms of prolonged palpitations irregular heartbeat. [facility] Medical History Cardiomyopathy HLD (hyperlipidemia) HTN (hypertension) Diabetes Hypothyroid CONCEPCION (obstructive sleep apnea) Tubular adenoma of colon Nephrolithiasis Surgical History History of tonsillectomy History of lithotripsy History of colonoscopy Family History Father Lung cancer Mother Hx of CABG Social History Patient Tobacco Use Status: Former Tobacco user Review of Systems Const Denies chills, Denies daytime sleepiness, Denies fatigue, Denies fever(s), Denies frequent falls, Denies poor appetite, Denies snoring, Denies stops breathing during sleep, Denies weakness, Denies weight gain and Denies weight loss Eyes Denies loss of vision ENT Denies dizziness and Denies hearing loss Card Denies chest pain, Denies claudication, Denies leg edema, Denies lightheadedness, Denies palpitations, Denies dyspnea, Denies dyspnea on exertion and Denies orthopnea Resp Denies cough, Denies excessive phlegm production, Denies dyspnea, Denies dyspnea on exertion, Denies snoring and Denies wheezing GI Denies abdominal pain, Denies hematochezia, Denies change in bowel habits, Denies nausea and Denies vomiting Denies dysuria and Denies urinary frequency Musc Denies arthralgias, Denies muscle weakness, Denies numbness and Denies other (frequent falls) Skin/Breast Denies nail changes and Denies rash Neuro Denies Abnormal speech present, Denies dizziness, Denies frequent falls, Denies loss of vision, Denies memory loss, Denies numbness and Denies weakness Psych Denies depression and Denies memory loss Endo Denies fatigue and Denies palpitations Wilton/Lymph Reports easy bruising and Reports other (anemia) Aller/Immun Denies wheezing Physical Exam Vital Signs: Last Vital Signs Pulse 86 11/22/23 12:51 BP 138/82 11/22/23 12:51 BMI result Body Mass Index 36.8 Const General: cooperative, comfortable, no acute distress, alert, awake and well groomed Nutritional Appearance: obese Orientation/consciousness: patient oriented x3 Limitations: no limitations HEENT Head: Yes normocephalic and Yes atraumatic Neck Neck: Yes trachea midline and Yes no JVD Resp Effort & Inspection: normal respiratory effort Auscultation: clear to auscultation bilaterally Cardio Jugular venous distension: no JVD Palpation: abnormal PMI displaced PMI Rate: regular rate Rhythm: regular rhythm Heart sounds: S1 normal heart sound present, S2 normal heart sound present, no click, no gallops, no murmurs and no rubs GI Auscultation: normal bowel sounds Skin General skin exam: no rashes or lesions noted Neuro General: patient oriented x3 and no focal motor deficits Speech: No Abnormal speech present Extrem General: Yes no clubbing, cyanosis or edema Psych Appearance: grossly normal Office Procedures EKG Details: EKG shows normal sinus rhythm with first-degree AV block with left axis deviation with IVCD with left bundle morphology with QRS duration 122 milliseconds [id number], Complete Results Reviewed Results Reviewed: Conclusions: - 1. Moderately dilated left ventricle with severely reduced LV ejection fraction of 25-30% with restrictive filling pattern 2. [id number] mitral regurgitation 3. Mildly elevated right ventricular systolic pressure 4. Mildly dilated ascending aorta 3.8 cm 5. No pericardial effusion Assessment & Plan Assessment & Plan (1) Cardiomyopathy: Code(s): I42.9 - Cardiomyopathy, unspecified Plan: patient presents with dilated cardiomyopathy with severe LV systolic dysfunction with new onset symptoms about a month ago with NYHA class 2-3 symptoms without any side overt signs of fluid overload or congestive heart failure. He has no resting symptoms at this point time. I had a detailed discussion about pathophysiology of cardiomyopathy and need to distinguish between ischemic versus nonischemic etiology. Given his multiple risk factors including age, diabetes, smoking, hypertension, family history significant three-vessel coronary artery disease or left main coronary artery disease highly likely. Recommend invasive cardiac catheterization to evaluate coronary anatomy and as well evaluate hemodynamics. Had detailed discussion about cardiac catheterization including risk, benefits, alternatives 2nd opinion. He understands and agrees to proceed with the procedure. Further treatment based on the findings. Also given his severe LV systolic dysfunction and symptoms, we discussed about potential development of congestive heart failure although he has no signs of it. Advised to call me with any progressive symptoms or seek emergency care. Meanwhile will up titrate his neurohormonal modulation and switch his lisinopril to valsartan therapy with eventual plan to switch him to Entresto therapy for better outcome data. Also will start him on carvedilol therapy given that he has no signs of fluid overload at this point time and no S3 gallop. Prescriptions have been sent. Will obtain workup for cardiomyopathy. Most likely etiology of cardiomyopathy could be post viral syndrome from August. Will follow up in the clinic in 2 weeks time, sooner p.r.n.. Thank you for allowing me to partake in his care Orders: Orders Cardiac Cath OCT[facility]IO Diagnostic 1 Week I42.9 - Cardiomyopathy, unspecified Medications: New valsartan 40 mg PO BID 60 tabs 1RF carvedilol (Coreg) must administer with a meal/food 3.125 mg PO BID 60 tabs 1RF Coding Level of Care Code New Pt Level 4 (94310) Diagnoses Cardiomyopathy I42.9 CPT Codes EKG - CPT: 53087-[id number], Complete ([id number])
== END 2023-11-22 13:32 | disposition home or self-care (01) ==
PROVIDERS: PCP Internal Medicine; Visit Provider Internal Medicine Cardiovascular Disease
DX: I42.9 Cardiomyopathy, unspecified (principal); I44.0 Atrioventricular block, first degree
CPT/HCPCS: 93010; 99204

== ENCOUNTER → 2023-11-22 12:44 | Outpatient (BNVA) | payer MEDICARE, SELFPAY | PROVIDERS: PCP Internal Medicine; Visit Provider Internal Medicine Cardiovascular Disease | DX: I42.9 Cardiomyopathy, unspecified (principal); I44.0 Atrioventricular block, first degree; R94.31 Abnormal electrocardiogram [ECG] [EKG] | CPT/HCPCS: 93005; 99202 ==

== ENCOUNTER 2023-11-27 14:49 | Outpatient (REF) | payer MEDICARE, SELFPAY ==
[2023-11-27 17:31] LABS: Hemoglobin 16.7 g/dl (14.0-18.0); Mean Corpuscular HGB Conc 32.7 g/dl (31.0-36.0); Mean Corpuscular Hemoglobin 28.7 pg (27.0-33.0); Mean Corpuscular Volume 87.8 fL (80.0-98.0); Mean Platelet Volume 10.6 fL (9.4-12.4); Platelet Count 214 X10*3/uL (160-400); Red Blood Count 5.81 X10*6/uL (4.60-5.80)
[2023-11-27 17:43] LABS: Anion Gap 15 (12-20); Blood Urea Nitrogen 18 mg/dL (9-16); Calcium 9.4 mg/dL (8.4-10.2); Carbon Dioxide 25 mmol/L (22-29); Chloride 106 mmol/L (96-108); Estimated Glomerular Filt Rate > 60; Glucose Random 202 mg/dL (60-115); Potassium 3.8 mmol/L (3.3-5.1); Sodium 142 mmol/L (135-145)
== END 2023-11-27 14:50 | disposition home or self-care (01) ==
LOC: HO.HMGCLDS 14:49
PROVIDERS: PCP Internal Medicine; Visit Provider Internal Medicine Cardiovascular Disease
DX: I42.9 Cardiomyopathy, unspecified (principal)
CPT/HCPCS: 36415; 80048; 85027; 85610

== ENCOUNTER → 2023-12-04 23:59 | Outpatient (BNV) | payer MEDICARE, SELFPAY | PROVIDERS: PCP Internal Medicine; Visit Provider Internal Medicine Cardiovascular Disease | DX: I50.20 Unspecified systolic (congestive) heart failure (principal) | CPT/HCPCS: 93460; 99152 ==

== ENCOUNTER 2023-12-17 13:40 | Outpatient (AMB) | payer MEDICARE, SELFPAY ==
--- NOTE | 2023-12-17 14:11 | MHC.OFFVIS ---
Intake Vital Signs 12/17/23 14:13 Height 6 ft Weight 271 lb BMI 36.8 BP 134/82 Blood Pressure Location Lt brachial Position Sitting Pulse 79 Pulse Source Pulse Oximeter Intake Visit Reasons: Follow up post cardiac cath Curer Acid Drum Required: No Field Cane Scale Clerk: Field Cane Scale Clerk Present Allergies ibuprofen [From Motrin] Adverse Reaction (Mild, Verified 12/17/23 14:14) NAUSEA & VOMITING PCN Allergy (Unknown, Uncoded 04/10/23 09:14) unknown reaction Medication List - Last Reconciled 12/17/23 by Breana Martinez NP-C carvedilol (Coreg) 3.125 mg PO BID 90 days dulaglutide (Trulicity) mg subcut QWEEK furosemide 40 mg PO QDAY glipizide 5 mg PO BID levothyroxine 200 mcg PO DAILY metformin 500 mg PO BID simvastatin 20 mg PO BEDTIME valsartan 40 mg PO BID 90 days HPI Follow up post cardiac cath HPI Details Marco is a 68-year-old male past medical history of hypertension, hyperlipidemia, diabetes, obesity, obstructive sleep apnea with newer finding of cardiomyopathy who underwent cardiac catheterization and now presents for follow-up. Today he reports that he is feeling much better than he had prior to starting medications. He says his breathing is mostly back to normal. If he or exerts he will notice some mild shortness of breath. No PND, orthopnea or edema. No chest discomfort at rest or with activity. No lightheadedness, presyncope, syncope, falls. Taking meds as directed. is present. Right radial catheterization site feeling good. [facility] Medical History (Updated 12/17/23 @ 17:51 by Breana Martinez, TAJ-C) Cardiomyopathy HLD (hyperlipidemia) HTN (hypertension) Diabetes Hypothyroid CONCEPCION (obstructive sleep apnea) Tubular adenoma of colon Nephrolithiasis Surgical History (Updated 12/17/23 @ 17:50 by Breana Martinez, TAJ-C) History of tonsillectomy History of lithotripsy History of colonoscopy Family History Father Lung cancer Mother Hx of CABG Social History Patient Tobacco Use Status: Former Tobacco user Review of Systems Const All systems reviewed & are unremarkable except as noted in HPI and below Denies fatigue ENT Denies dizziness Card Denies chest pain, Denies chest pain at rest, Denies chest pain with activity, Denies dyspnea, Reports dyspnea on exertion and Denies orthopnea Resp Denies dyspnea and Reports dyspnea on exertion Musc Denies abnormal gait Neuro Denies abnormal gait and Denies dizziness Psych Denies abnormal sleep pattern and Denies anxiety Endo Denies fatigue Physical Exam Vital Signs: Last Vital Signs Pulse 79 12/17/23 14:13 BP 134/82 12/17/23 14:13 BMI result Body Mass Index 36.8 Const General: cooperative, healthy appearing, comfortable and no acute distress Orientation/consciousness: patient oriented x3 Neck Neck: Yes normal visual inspection and Yes no JVD Resp Effort & Inspection: normal respiratory effort Auscultation: clear to auscultation bilaterally, no crackles, no rales, no rhonchi and no wheezes Cardio Jugular venous distension: no JVD Rate: regular rate Rhythm: regular rhythm Heart sounds: S1 normal heart sound present, S2 normal heart sound present, no murmurs and no rubs Neuro General: patient oriented x3 Extrem General: Yes normal to inspection, No no pedal edema and No calf tenderness Psych Appearance: grossly normal Mental Status: mental status grossly normal Speech and movement: Normal speech and movement present Assessment & Plan Assessment & Plan (1) Cardiomyopathy: Code(s): I42.9 - Cardiomyopathy, unspecified Plan: Last month patient started with shortness of breath with exertion. This led to echocardiogram which showed severe reduction in the LV systolic dysfunction, EF 25-30%, [id number] MR, with increase in the RV systolic pressure. He was started on valsartan and carvedilol for neurohormonal modulation. He underwent cardiac catheterization on 12/04/2023 showing moderate coronary artery disease. Degree of coronary artery disease did not match degree of cardiomyopathy. His cardiomyopathy is felt to be nonischemic in nature. His filling pressures were elevated and he was started on Lasix 40 mg daily. Today he reports feeling much better overall since the start of medications. His prior shortness of breath has nearly resolved. Does not appear fluid overloaded on examination. Blood pressure 134/82. He is currently stil on valsartan. Will stop valsartan and change to Entresto 24/26 mg b.i.d.. Continue carvedilol at current dose. Continue Lasix. BMP in 1 week. Plan for limited echo 3 months from the start of medical management, due February 2024. Signs and symptoms of heart failure reviewed with him. Cardiology follow-up in 3 months, sooner if needed. (2) S/P cardiac cath: Comment: 12/04/2023, mid LAD 40% stenosis, 1st OM 50% stenosis, mid RCA 70% stenosis, increased filling pressures Code(s): Z98.890 - Other specified postprocedural states Plan: Right radial catheterization site well healed (3) CAD (coronary artery disease): Code(s): I25.10 - Atherosclerotic heart disease of [place] coronary artery without angina pectoris Plan: New finding of coronary artery disease. Cardiac catheterization report as above. No reports of anginal sounding symptoms. He is not on aspirin, will have him start aspirin 81 mg daily. Currently on simvastatin, last labs 07/16/2023 showed LDL 93. Will stop simvastatin and bracelet form coverer to atorvastatin 40 mg daily. He will need a fasting lipid profile in 2-3 months. Continue carvedilol. Signs and symptoms of angina reviewed with him. (4) HLD (hyperlipidemia): Code(s): E78.5 - Hyperlipidemia, unspecified Plan: As above. [place] LDL goal less than 70. Changing over from simvastatin to atorvastatin. Order for repeat lipid profile entered and patient informed. (5) HTN (hypertension): Code(s): I10 - Essential (primary) hypertension Plan: Normal range at present. Due to significantly reduced EF will be changing his valsartan over to Entresto. Labs pending (6) Intraventricular conduction delay: Code(s): I45.9 - Conduction disorder, unspecified Plan: Noted on EKG Plan Time spent on chart review, documentation, interview and assessment Orders: Orders Lipid Panel 2 Months E78.5 - Hyperlipidemia, unspecified Basic Metabolic Panel 12/17/23 I25.10 - Atherosclerotic heart disease of [place] coronary artery without angina pectoris CA echo limited 02/25/24 I42.9 - Cardiomyopathy, unspecified Medications: New sacubitril-valsartan 24-26 mg (Entresto) 1 tab PO BID 60 tabs 5RF atorvastatin 40 mg PO BEDTIME 30 tabs 5RF Discontinued valsartan Discontinued Reason: Doctor's Order 40 mg PO BID 90 days 180 tabs 3RF Coding Level of Care Code Est Pt Level 4 (73454) Diagnoses Cardiomyopathy I42.9 S/P cardiac cath Z98.890 CAD (coronary artery disease) I25.10 HLD (hyperlipidemia) E78.5 HTN (hypertension) I10 Intraventricular conduction delay I45.9 Time Spent (min) 30
[2023-12-17 14:13] VITALS: BP 134/82; PULSE 79; BMI 36.8
== END 2023-12-17 15:03 | disposition home or self-care (01) ==
PROVIDERS: PCP Internal Medicine; Visit Provider Nurse Practitioner Family
DX: I42.9 Cardiomyopathy, unspecified (principal); Z98.890 Other specified postprocedural states; I25.10 Atherosclerotic heart disease of native coronary artery without angina pectoris; E78.5 Hyperlipidemia, unspecified; I10 Essential (primary) hypertension; I45.9 Conduction disorder, unspecified
CPT/HCPCS: 99214

== ENCOUNTER → 2023-12-17 13:40 | Outpatient (BNVA) | payer MEDICARE, SELFPAY | PROVIDERS: PCP Internal Medicine; Visit Provider Nurse Practitioner Family | DX: I42.9 Cardiomyopathy, unspecified (principal); I25.10 Atherosclerotic heart disease of native coronary artery without angina pectoris; I10 Essential (primary) hypertension; I45.9 Conduction disorder, unspecified; E78.5 Hyperlipidemia, unspecified; Z98.890 Other specified postprocedural states | CPT/HCPCS: 99212 ==

== ENCOUNTER → 2024-02-25 08:43 | Outpatient (REF) | payer MEDICARE, SELFPAY ==
--- NOTE | 2024-02-25 08:46 | CA_ITS ---
Transthoracic Echocardiogram Patient (Last, First, Middle): Marco Cameron F Gender: Male Date of : 1955 Age: 68 Procedure Date: 02/25/2024 Procedure Type: Transthoracic Echocardiogram Location: OP Height: 182.88 cm Weight: 129.28 kg BSA: 2.48 m2 Heart Rate: bpm BP: 134 / 90 mmHg Installation Drafter: Referring MD: Breana Martinez CAREER AND TRANSITION TEACHER-C Mapping Analyst: Yovany Mirza MD Symptoms: I42.9 - Cardiomyopathy, unspecified Study Quality: Good ECG Rhythm: Sinus Conclusions: - Moderately dilated left ventricle with severely reduced LV ejection fraction of 20-25% Findings Left Ventricle Moderately increased left ventricular cavity size. There is mildly increased left ventricular wall thickness. The left ventricular systolic function is severely decreased. The visually estimated ejection fraction is between 20 25%. There is severe global hypokinesis. Prior Study Comparison Changes noted compared to prior study. LV ejection fraction is marginally reduced Measurements 2D Linear Measurements IVSd: 1.32 0.6-0.9/0.6-1.0 cm LVIDd: 6.61 3.9-5.3/4.2-5.9 cm LVIDd Index: 2.67 2.4-3.2/2.2-3.1 cm/m2 LVIDs: 5.55 2.0-3.6 cm LVPWd: 1.43 0.7-1.1 cm LV Mass: 552.47 67-162/88-224 g LV Mass Index: 222.77 43-95/49-115 g/m2 LVOT Diam: 2.00 3.0+(-)1.3 cm 2D Systolic Function EF 4C: 27.70 >55% EF 2C: 17.60 >55% EF BiP: 21.70 >55% LVOT LVOT Pk Marcial: 0.97 LVOT Mn Marcial: 0.64 LVOT VTI: 0.22 LVOT Pk Grad: 4.00 LVOT Mn Grad: 2.00 LVOT Diam: 2.00 LVOT Area: 3.14 Updated in Other Vendor System with Status of Final Yovany Mirza MD electronically signed on 02/25/2024 1:48:20 PM with status of Final
== END ==
LOC: HO.CARD 08:43
PROVIDERS: PCP Internal Medicine; Visit Provider Nurse Practitioner Family
DX: I42.9 Cardiomyopathy, unspecified (principal)
CPT/HCPCS: 93308

== ENCOUNTER → 2024-02-25 08:46 | Outpatient (BNV) | payer MEDICARE, SELFPAY | PROVIDERS: PCP Internal Medicine; Visit Provider Internal Medicine Cardiovascular Disease | DX: I42.9 Cardiomyopathy, unspecified (principal); R93.1 Abnormal findings on diagnostic imaging of heart and coronary circulation | CPT/HCPCS: 93308 ==

== ENCOUNTER 2024-03-11 13:42 | Outpatient (REF) | payer MEDICARE, SELFPAY ==
[2024-03-11 16:05] LABS: Anion Gap 13 (12-20); Blood Urea Nitrogen 18 mg/dL (9-16); Carbon Dioxide 26 mmol/L (22-29); Chloride 106 mmol/L (96-108); Estimated Glomerular Filt Rate > 60; Glucose Random 225 mg/dL (60-115); Potassium 3.9 mmol/L (3.3-5.1); Sodium 141 mmol/L (135-145)
[2024-03-11 16:28] LABS: B Type Natriuretic Peptide 101 pg/mL (<100)
== END 2024-03-11 13:43 | disposition home or self-care (01) ==
LOC: HO.LAB 13:42
PROVIDERS: PCP Internal Medicine; Visit Provider Internal Medicine Cardiovascular Disease
DX: I42.9 Cardiomyopathy, unspecified (principal); I50.20 Unspecified systolic (congestive) heart failure
CPT/HCPCS: 36415; 80048; 83880; 93005; 99212

== ENCOUNTER 2024-03-11 13:42 | Outpatient (AMB) | payer MEDICARE, SELFPAY ==
--- NOTE | 2024-03-11 13:44 | A.OFFVIS_ITS ---
Vital Signs 03/11/24 13:45 Height 6 ft Weight 299 lb 13.259 oz BMI 40.7 BP 142/74 H Blood Pressure Location Lt brachial Position Sitting Pulse 84 Intake Visit Reasons: 3 mth f/up Intake Note: 3 month follow-up feeling good Head Up Operator Required: No Door Repairer Bus: Door Repairer Bus Present Accompanied by: Spouse Allergies ibuprofen [From Motrin] Adverse Reaction (Mild, Verified 12/17/23 14:14) NAUSEA & VOMITING PCN Allergy (Unknown, Uncoded 04/10/23 09:14) unknown reaction Medication List - Last Reconciled 03/11/24 by Yovany Mirza MD atorvastatin 40 mg PO BEDTIME carvedilol (Coreg) 3.125 mg PO BID 90 days dulaglutide (Trulicity) mg subcut QWEEK furosemide 40 mg PO QDAY glipizide 5 mg PO BID levothyroxine 200 mcg PO DAILY metformin 500 mg PO BID sacubitril-valsartan 24-26 mg (Entresto) 1 tab PO BID HPI Comments Details: Marco comes for follow-up, accompanied by his . His LV ejection fraction by echocardiogram remains severely reduced at 20-25% with moderately dilated left ventricle despite medical therapy. His clinical symptoms have improved. Shortness of breath is improved to NYHA class 2. Does not have any orthopnea, PND, leg edema. He said he has not taken his furosemide for 3 days due to various reasons and he has been feeling well. He has been taking his carvedilol as well as Entresto regularly. Denies any prolonged palpitations, lightheadedness, syncope. Denies any chest tightness. [facility] Medical History (Updated 03/11/24 @ 14:23 by Yovany Mirza MD) Nonischemic cardiomyopathy Heart failure with reduced ejection fraction HLD (hyperlipidemia) HTN (hypertension) Diabetes Hypothyroid CONCEPCION (obstructive sleep apnea) Tubular adenoma of colon Nephrolithiasis Surgical History History of tonsillectomy History of lithotripsy History of colonoscopy Family History Father Lung cancer Mother Hx of CABG Social History Patient Tobacco Use Status: Former Tobacco user Review of Systems Const Denies chills, Denies fatigue, Denies fever(s), Denies frequent falls, Denies weakness, Denies weight gain and Denies weight loss ENT Denies dizziness Card Denies chest pain, Denies leg edema, Denies lightheadedness, Denies palpitations, Denies dyspnea, Denies dyspnea on exertion, Denies orthopnea and Denies other (loss of consciousness) Resp Denies cough, Denies dyspnea and Denies dyspnea on exertion GI Denies hematochezia and Denies change in stool character Musc Denies abnormal gait, Denies muscle weakness, Denies numbness, Denies radiating pain into limb and Denies tingling Neuro Denies abnormal gait, Denies dizziness, Denies frequent falls, Denies numbness, Denies tingling and Denies weakness Endo Denies fatigue and Denies palpitations Physical Exam Vital Signs: Last Vital Signs Pulse 84 03/11/24 13:45 BP 142/74 H 03/11/24 13:45 BMI result Body Mass Index 40.7 Const General: cooperative, healthy appearing, comfortable and no acute distress Orientation/consciousness: patient oriented x3 Neck Neck: Yes normal visual inspection and Yes no JVD Resp Effort & Inspection: normal respiratory effort Auscultation: clear to auscultation bilaterally, no crackles, no rales, no rhonchi and no wheezes Cardio Jugular venous distension: no JVD Rate: regular rate Rhythm: regular rhythm Heart sounds: S1 normal heart sound present, S2 normal heart sound present, no murmurs and no rubs Neuro General: patient oriented x3 Extrem General: Yes normal to inspection, No no pedal edema and No calf tenderness Psych Appearance: grossly normal Mental Status: mental status grossly normal Speech and movement: Normal speech and movement present Office Procedures EKG Details: EKG shows normal sinus rhythm with right superior axis deviation with nonspecific intraventricular conduction delay with QRS duration of 128 milliseconds [id number], Complete Assessment & Plan Assessment & Plan (1) Heart failure with reduced ejection fraction: Code(s): I50.20 - Unspecified systolic (congestive) heart failure Category: Medical Plan: Heart failure with reduced ejection fraction with persistent severe LV systolic dysfunction despite neurohormonal modulation. Clinically NYHA class 2 symptoms with clinically euvolemia at this point time. He continues to exercise and maintain activity level. Will reduce his Lasix to 20 mg daily. Discussed management of heart failure. Daily weight monitoring avoidance of salt loading was discussed additional diuretics as need be. Meanwhile will up titrate carvedilol to 6.25 mg b.i.d. and increase Entresto to 49-51 mg b.i.d.. Advised to call me with any worsening symptoms. Follow-up lab work today. Referring him to EPS for placement of single-chamber ICD for primary prevention. The risks, benefits, alternatives were discussed with him. He understands and agrees. Will be scheduled in near future for the same. Encouraged to continue to participate in regular physical activity and weight loss program. Will follow up in the clinic after defibrillator placement in 6 weeks time. Thank you for allowing me to partake in his care Orders: Orders B Type Natriuretic Peptide Today I42.9 - Cardiomyopathy, unspecified Basic Metabolic Panel Today I42.9 - Cardiomyopathy, unspecified Medications: New carvedilol (Coreg) must administer with a meal/food 6.25 mg PO BID 60 tabs 5RF sacubitril-valsartan 49-51 mg (Entresto) 1 tab PO BID 60 tabs 5RF Changed From furosemide 40 mg PO QDAY To furosemide 20 mg PO QDAY Discontinued carvedilol (Coreg) must administer with a meal/food Discontinued Reason: Doctor's Order 3.125 mg PO BID 90 days 180 tabs 3RF sacubitril-valsartan 24-26 mg (Entresto) Discontinued Reason: Doctor's Order 1 tab PO BID 60 tabs 5RF Coding Level of Care Code Est Pt Level 4 (41354) Diagnoses Heart failure with reduced ejection fraction I50.20 CPT Codes EKG - CPT: 85688-[id number], Complete ([id number])
[2024-03-11 13:45] VITALS: BP 142/74; PULSE 84; BMI 40.7
== END 2024-03-11 14:18 | disposition home or self-care (01) ==
PROVIDERS: PCP Internal Medicine; Visit Provider Internal Medicine Cardiovascular Disease
DX: I50.20 Unspecified systolic (congestive) heart failure (principal)
CPT/HCPCS: 93010; 99214

== ENCOUNTER 2024-04-24 12:14 | Outpatient (REF) | payer MEDICARE, SELFPAY ==
[2024-04-24 13:24] LABS: MANUAL DIFF FLAG NO
[2024-04-24 13:38] LABS: Basophils Absolute Auto 0.1 X10*3/uL (0.0-0.2); Eosinophils Absolute Auto 0.2 X10*3/uL (0.0-0.4); Eosinophils Percent Auto 2.5 % (0-4); Hematocrit 43.3 % (42.0-52.0); Hemoglobin 14.8 g/dl (14.0-18.0); Imm Gran Abs Auto 0.05 X10*3/uL (0.00-0.03); Imm Gran Pct Auto 0.8 % (0.0-0.4); Lymphocytes Absolute Auto 1.9 X10*3/uL (1.2-4.9); Lymphocytes Percent Auto 29.9 % (20-40); Mean Corpuscular HGB Conc 34.2 g/dl (31.0-36.0); Mean Corpuscular Hemoglobin 30.3 pg (27.0-33.0); Mean Corpuscular Volume 88.5 fL (80.0-98.0); Mean Platelet Volume 10.4 fL (9.4-12.4); Monocytes Absolute Auto 0.4 X10*3/uL (0.1-1.2); Monocytes Percent Auto 6.8 % (2-11); Neutrophils Absolute Auto 3.7 x10*3/uL (2.0-8.3); Platelet Count 229 X10*3/uL (160-400); Red Blood Count 4.89 X10*6/uL (4.60-5.80); Red Cell Distribution Width 13.2 % (11.0-16.0); White Blood Count 6.3 X10*3/uL (4.8-10.8)
[2024-04-24 13:43] LABS: Estimated Average Glucose 200 mg/dL; Hemoglobin A1c % 8.6 % (<6.0)
[2024-04-24 14:16] LABS: Creatinine Urine 177.31 mg/dL; Microalbum/Creatinine Ratio Ur 45.1 ug/mg cr (<30)
[2024-04-24 14:25] LABS: Alanine Aminotransferase 28 U/L (0-40); Albumin Level 4.1 g/dL (3.5-5.0); Alkaline Phosphatase 75 U/L (39-117); Anion Gap 11 (12-20); Aspartate Amino Transferase 20 U/L (5-37); Bilirubin Total 2.2 mg/dL (0.0-1.0); Blood Urea Nitrogen 30 mg/dL (9-16); Calcium 9.6 mg/dL (8.4-10.2); Carbon Dioxide 29 mmol/L (22-29); Chloride 104 mmol/L (96-108); Estimated Glomerular Filt Rate > 60; Glucose Random 232 mg/dL (60-115); Potassium 3.8 mmol/L (3.3-5.1); Sodium 140 mmol/L (135-145); Total Protein 6.7 g/dL (6.5-8.0)
[2024-04-24 14:31] LABS: Free T4 (Free Thyroxine) 1.24 ng/dL (0.71-1.85)
== END 2024-04-24 12:15 | disposition home or self-care (01) ==
LOC: HO.HMGCLDS 12:14
PROVIDERS: PCP Internal Medicine; Visit Provider Internal Medicine
DX: E11.9 Type 2 diabetes mellitus without complications (principal); I10 Essential (primary) hypertension; E03.9 Hypothyroidism, unspecified
CPT/HCPCS: 36415; 80053; 82043; 82570; 83036; 84439; 84443; 85025

== ENCOUNTER → 2024-05-13 10:51 | Day surgery (SDC) | payer MEDICARE, SELFPAY ==
[2024-05-13 11:37] VITALS: BMI 40.7
[2024-05-13 12:05] VITALS: BP 180/88; PULSE 65; RESP 16; TEMP 36.2; O2SAT 98
[2024-05-13 12:14] LABS: Glucose, Whole Blood 229 mg/dL (60-115)
--- NOTE | 2024-05-13 12:24 | ECG_ITS ---
Test Reason : preop Blood Pressure : / mmHG Vent. Rate : 066 BPM Atrial Rate : 066 BPM P-R Int : 216 ms QRS Dur : 136 ms QT Int : 450 ms P-R-T Axes : 009 -72 059 degrees QTc Int : 471 ms Sinus rhythm with 1st degree A-V block Left axis deviation Non-specific intra-ventricular conduction block Minimal voltage criteria for LVH, may be normal variant ( Eder product ) Nonspecific T wave abnormality Abnormal ECG When compared with ECG of 05-APR-2012 16:54, Questionable change in QRS duration Referred By: Alfredo Davis Electronically Signed By:DANITA LOMELI MD
[2024-05-13] MEDS: Lactated Ringers 1,000 ML 50 ML IVCONT (13:06)
--- NOTE | 2024-05-13 13:20 | HO.ANESPROP2 ---
Documented by User: Fifi Vernon NP 05/12/24 10:49 HPI - Anesthesia Eval Consult details Narrative: 69yo M for Single ICD Insertion Follows [facility] cardiology - non-ischemic CMP EF 20-25%, on entresto Anesthesia Pre-Procedure Meds Is the patient on any of the following meds?: GLP1/DPP4 PMFSH Active Problems Active Problems: All Active Problems Nonischemic cardiomyopathy (Acute) Heart failure with reduced ejection fraction (Acute) Intraventricular conduction delay (Acute) HTN (hypertension) (Acute) HLD (hyperlipidemia) (Acute) CAD (coronary artery disease) (Acute) S/P cardiac cath (Acute) Nicotine dependence (Acute) Past Medical History Medical History Nonischemic cardiomyopathy Heart failure with reduced ejection fraction HLD (hyperlipidemia) HTN (hypertension) Diabetes Hypothyroid CONCEPCION (obstructive sleep apnea) Tubular adenoma of colon Nephrolithiasis Family History Family History Father Lung cancer Mother Hx of CABG Family history of problems with anesthesia: No Surgical History Surgical History History of tonsillectomy History of lithotripsy History of colonoscopy History of Problems with Anesthesia: No Social History Social History Patient Tobacco Use Status: Former Tobacco user Use of substances other than those prescribed or required for medical reasons: No Are you DNR?: No Advance Directives: No Advance Directives Information Provided: Yes Meds Allergies Allergy/AdvReac Type Severity Reaction Status Date / Time ibuprofen [From Motrin] AdvReac Mild NAUSEA & Verified 05/13/24 11:47 VOMITING PCN Allergy Unknown unknown Uncoded 05/13/24 11:47 reaction Home Medications ?Medication ?Instructions ?Recorded ?Confirmed ?Last Taken ?Type dulaglutide 0.75 mg/0.5 mL 0.75 mg subcut QWEEK 04/09/23 05/13/24 04/29/24 History subcutaneous pen injector (Trulicity) levothyroxine 200 mcg tablet 200 mcg PO DAILY 04/09/23 05/13/24 05/13/24 History glipizide 5 mg tablet 5 mg PO BID 11/22/23 05/13/24 05/12/24 History metformin 500 mg tablet 500 mg PO BID 11/22/23 05/13/24 05/12/24 History Exam Pertinent Lab Results Pertinent Lab Results: Laboratory Tests 03/11/24 04/24/24 14:30 12:20 WBC 6.3 Hgb 14.8 Hct 43.3 Plt Count 229 Sodium 140 Potassium 3.8 Chloride 104 Carbon Dioxide 29 BUN 30 H Creatinine 1.00 Hemoglobin A1c % 8.6 H B-Natriuretic Peptide 101 H Narrative Narrative: EKG 02/2024 normal sinus rhythm with right superior axis deviation with nonspecific intraventricular conduction delay with QRS duration of 128 milliseconds ECHO 2023 Conclusions: - Moderately dilated left ventricle with severely reduced LV ejection fraction of 20-25% Findings Left Ventricle Moderately increased left ventricular cavity size. There is mildly increased left ventricular wall thickness. The left ventricular systolic function is severely decreased. The visually estimated ejection fraction is between 20 25%. There is severe global hypokinesis. cardiac catheterization on 12/04/2023 showing moderate coronary artery disease. Degree of coronary artery disease did not match degree of cardiomyopathy Assessment and Plan Assessment Anesthesia Assessment: Chart Reviewed Final Anesthetic Review Family History of Problems with Anesthesia: No History of Problems with Anesthesia: No Documented by User: Monique Neff DO 05/13/24 13:24 HPI - Anesthesia Eval Consult details Narrative: 69yo M for Single ICD Insertion Follows [facility] cardiology - non-ischemic CMP EF 20-25%, on entresto Procedure cancelled by Dr. Davis on the day of surgery. Patient's left bundle branch block and QRS has progressed so he will need a biventricular ICD which can only be done at [facility]. [facility] Past Medical History Medical History Nonischemic cardiomyopathy Heart failure with reduced ejection fraction HLD (hyperlipidemia) HTN (hypertension) Diabetes Hypothyroid CONCEPCION (obstructive sleep apnea) Tubular adenoma of colon Nephrolithiasis Family History Family History Father Lung cancer Mother Hx of CABG Family history of problems with anesthesia: No Surgical History Surgical History History of tonsillectomy History of lithotripsy History of colonoscopy History of Problems with Anesthesia: No Social History Social History Patient Tobacco Use Status: Former Tobacco user Use of substances other than those prescribed or required for medical reasons: No Are you DNR?: No Advance Directives: No Advance Directives Information Provided: Yes Meds Allergies Allergy/AdvReac Type Severity Reaction Status Date / Time ibuprofen [From Motrin] AdvReac Mild NAUSEA & Verified 05/13/24 11:47 VOMITING PCN Allergy Unknown unknown Uncoded 05/13/24 11:47 reaction Home Medications ?Medication ?Instructions ?Recorded ?Confirmed ?Last Taken ?Type dulaglutide 0.75 mg/0.5 mL 0.75 mg subcut QWEEK 04/09/23 05/13/24 04/29/24 History subcutaneous pen injector (Trulicity) levothyroxine 200 mcg tablet 200 mcg PO DAILY 04/09/23 05/13/24 05/13/24 History glipizide 5 mg tablet 5 mg PO BID 11/22/23 05/13/24 05/12/24 History metformin 500 mg tablet 500 mg PO BID 11/22/23 05/13/24 05/12/24 History Exam Exam Date and Time: May 13, 2024 1255 Height,Weight and Vital Signs: Height 6 ft Weight 136.078 kg Vital Signs Temperature 97.1 F 05/13/24 12:05 Pulse Rate 65 05/13/24 12:05 Respiratory Rate 16 05/13/24 12:05 Blood Pressure 180/88 H 05/13/24 12:05 Pulse Oximetry 98 05/13/24 12:05 Oxygen Delivery Method Room Air 05/13/24 12:05 Temperature 97.1 F 05/13/24 12:05 Pulse Rate 65 05/13/24 12:05 Respiratory Rate 16 05/13/24 12:05 Blood Pressure 180/88 H 05/13/24 12:05 Pulse Oximetry 98 05/13/24 12:05 Oxygen Delivery Method Room Air 05/13/24 12:05 Airway Mallampati Class: II TM Dist: >3cm Neck ROM: Full Loose/Missing/Broken Teeth: No (patient denies any loose or broken teeth) Heart: S1S2 Lungs: CTAB Assessment and Plan Assessment Anesthesia Assessment: Anesthesia Plan Discussed and Chart Reviewed Final Anesthetic Review Family History of Problems with Anesthesia: No History of Problems with Anesthesia: No NPO: Yes ASA Class: IV Final Preanesthetic Review: No Changes in Pt Med Stat, Meds/Allgs Chart Reviewed, Consent Obtained/Reviewed and Anes Risks/Benef Reviewed Patient Risk: High Procedure Risk: High
--- NOTE | 2024-05-13 13:25 | PC.NURSE ---
Dr Lui in to see pt it appears pt HF has progressed and pt will need a device that is not surgically provided at [facility]. Pt will be cancelled today and rescheduled [facility] at [facility]. Pt was bedside at time of discussion and both understand plan and are in agreement. IV's d/c and pt left stable and ambulatory with all belongings.
--- NOTE | 2024-05-13 13:48 | P.CONCA_ITS ---
History of Present Illness History of Present Illness Date of Service: 05/13/24 Requesting physician: Yovany Mirza Chief complaint: Heart failure, unspecified Narrative: 66 year old male with PMH of non-ischemic cardiomyopathy, LBBB, HTN, Dyslipidemia, non-obstructive CAD presents for evaluation of ICD. Patient has shortness of breath after walking couple of blocks. LBBB has progressed on today's EKG with QRS duration 136 ms, Notch in lateral leads, Lead 1 and aVL, S wave in V1. Review of Systems Review of Systems: Yes all other systems are reviewed and are negative [facility] Past Medical History Medical History (Updated 05/13/24 @ 13:58 by Alfredo Davis MD) Nonischemic cardiomyopathy Heart failure with reduced ejection fraction HLD (hyperlipidemia) HTN (hypertension) Diabetes Hypothyroid CONCEPCION (obstructive sleep apnea) Tubular adenoma of colon Nephrolithiasis Family History Family History Father Lung cancer Mother Hx of CABG Surgical History Surgical History History of tonsillectomy History of lithotripsy History of colonoscopy Social History Social History Patient Tobacco Use Status: Former Tobacco user Use of substances other than those prescribed or required for medical reasons: No Are you DNR?: No Advance Directives: No Advance Directives Information Provided: Yes Meds Allergies Allergy/AdvReac Type Severity Reaction Status Date / Time ibuprofen [From Motrin] AdvReac Mild NAUSEA & Verified 05/13/24 11:47 VOMITING PCN Allergy Unknown unknown Uncoded 05/13/24 11:47 reaction Active Medications: Current Medications Lactated Ringer's (Lr) 1,000 mls @ 50 mls/hr IVCONT .Q20H COMFORT Last Admin: 05/13/24 13:06 Dose: 50 mls/hr Home Medications ?Medication ?Instructions ?Recorded ?Confirmed ?Last Taken ?Type dulaglutide 0.75 mg/0.5 mL 0.75 mg subcut QWEEK 04/09/23 05/13/24 04/29/24 History subcutaneous pen injector (Trulicity) levothyroxine 200 mcg tablet 200 mcg PO DAILY 04/09/23 05/13/24 05/13/24 History glipizide 5 mg tablet 5 mg PO BID 11/22/23 05/13/24 05/12/24 History metformin 500 mg tablet 500 mg PO BID 11/22/23 05/13/24 05/12/24 History Physical Exam Vital Signs: Vital Signs: Last Vital Signs Temp 97.1 F 05/13/24 12:05 Pulse 65 05/13/24 12:05 Resp 16 05/13/24 12:05 BP 180/88 H 05/13/24 12:05 Pulse Ox 98 05/13/24 12:05 O2 Del Method Room Air 05/13/24 12:05 BMI result Body Mass Index 40.7 Const: General: cooperative and healthy appearing Orientation/consciousness: oriented to person, oriented to place and oriented to time HEENT: Head: Yes normal to inspection, Yes No palpable skull fracture present, Yes normocephalic and Yes atraumatic Ears: hearing grossly normal bilaterally and external ears normal Eyes: General: appearance normal, both eyes and all related structures Pupils: Equal, round and reactive pupils present EOM: EOMs intact bilaterally Neck: Neck: Yes normal visual inspection and Yes full ROM Lymphatic: no lymphadenopathy noted Chest: Chest palpation & inspection: normal inspection of the chest and normal palpation of entire chest wall Resp: Effort & Inspection: normal respiratory effort and able to speak in complete sentences Cardio: Jugular venous distension: no JVD Palpation: normal PMI Rate: regular rate GI: Inspection: Yes normal to inspection Skin: General skin exam: no rashes or lesions noted Neuro: General: oriented to person, oriented to place and oriented to time Cranial nerves: Yes CN's II-XII intact bilaterally and Yes Equal, round and reactive pupils present Motor exam (neuro): 5/5 motor strength present throughout Objective Labs and Meds Lab results: Laboratory Results - last 24 hr 05/13/24 12:08 POC Glucose 229 H ECG Attestation: I personally reviewed and interpreted this ECG as follows: (NSR, LBBB QRS duration 136 ms) Assessment and Plan (1) Nonischemic cardiomyopathy: Status: Acute (2) HTN (hypertension): Qualifiers: Hypertension type: primary hypertension Qualified Code(s): I10 - Essential (primary) hypertension Status: Acute (3) LBBB (left bundle branch block): Status: Acute Plan We had a detailed discussion with regards to ICD. Patient at this point opted for ASSISTANT KITCHEN MANAGER-D Will proceed with ASSISTANT KITCHEN MANAGER-D Risks and benefits of the procedure were discussed in detail. Thank you for the consult. Please tigerconnect for questions. Procedures Date of Service Date of Service: 05/13/24
== END ==
LOC: HO.SSS 10:52
PROVIDERS: PCP Internal Medicine; Visit Provider Internal Medicine Cardiovascular Disease
DX: I50.9 Heart failure, unspecified (principal); Z53.8 Procedure and treatment not carried out for other reasons; I42.8 Other cardiomyopathies; I10 Essential (primary) hypertension; I44.7 Left bundle-branch block, unspecified; E11.9 Type 2 diabetes mellitus without complications; Z79.85 Long-term (current) use of injectable non-insulin antidiabetic drugs; Z79.84 Long term (current) use of oral hypoglycemic drugs; Z79.899 Other long term (current) drug therapy
CPT/HCPCS: 82947; 93005; J0736; J3370

== ENCOUNTER → 2024-05-13 12:24 | Outpatient (BNV) | payer MEDICARE, SELFPAY | PROVIDERS: PCP Internal Medicine; Visit Provider Internal Medicine Cardiovascular Disease | DX: R94.31 Abnormal electrocardiogram [ECG] [EKG] (principal) | CPT/HCPCS: 93010 ==

== ENCOUNTER 2024-06-10 12:10 | Outpatient (REF) | payer MEDICARE, SELFPAY ==
[2024-06-10 13:14] LABS: MANUAL DIFF FLAG NO
[2024-06-10 13:21] LABS: Basophils Absolute Auto 0.1 X10*3/uL (0.0-0.2); Basophils Percent Auto 0.8 % (0-2); Eosinophils Absolute Auto 0.2 X10*3/uL (0.0-0.4); Eosinophils Percent Auto 3.1 % (0-4); Hematocrit 44.2 % (42.0-52.0); Hemoglobin 15.1 g/dl (14.0-18.0); INTERNATIONAL NORM RATIO 0.9 (0.9-1.1); Imm Gran Abs Auto 0.04 X10*3/uL (0.00-0.03); Imm Gran Pct Auto 0.7 % (0.0-0.4); Lymphocytes Absolute Auto 1.8 X10*3/uL (1.2-4.9); Lymphocytes Percent Auto 29.4 % (20-40); Mean Corpuscular HGB Conc 34.2 g/dl (31.0-36.0); Mean Corpuscular Hemoglobin 29.6 pg (27.0-33.0); Mean Corpuscular Volume 86.7 fL (80.0-98.0); Mean Platelet Volume 10.6 fL (9.4-12.4); Monocytes Absolute Auto 0.4 X10*3/uL (0.1-1.2); Monocytes Percent Auto 5.9 % (2-11); Neutrophils Absolute Auto 3.7 x10*3/uL (2.0-8.3); Neutrophils Percent Auto 60.1 % (45-73); Platelet Count 197 X10*3/uL (160-400); Prothrombin Time 10.8 SEC (11.1-13.3); Red Cell Distribution Width 12.9 % (11.0-16.0); White Blood Count 6.1 X10*3/uL (4.8-10.8)
[2024-06-10 14:22] LABS: Anion Gap 14 (12-20); Blood Urea Nitrogen 23 mg/dL (9-16); Calcium 9.5 mg/dL (8.4-10.2); Carbon Dioxide 26 mmol/L (22-29); Chloride 102 mmol/L (96-108); Estimated Glomerular Filt Rate 59; Glucose Random 381 mg/dL (60-115); Potassium 3.9 mmol/L (3.3-5.1); Sodium 138 mmol/L (135-145)
== END 2024-06-10 12:11 | disposition home or self-care (01) ==
LOC: HO.HMGCLDS 12:10
PROVIDERS: PCP Internal Medicine; Visit Provider Internal Medicine Cardiovascular Disease
DX: I50.9 Heart failure, unspecified (principal)
CPT/HCPCS: 36415; 80048; 85025; 85610

== ENCOUNTER 2024-07-01 12:30 | Outpatient (AMB) | payer MEDICARE, SELFPAY ==
[2024-07-01 12:34] VITALS: BP 124/76; PULSE 80; BMI 41.0
--- NOTE | 2024-07-01 12:34 | A.OFFVIS_ITS ---
Vital Signs 07/01/24 12:34 Height 6 ft Weight 302 lb 0.533 oz BMI 41.0 BP 124/76 Blood Pressure Location Lt brachial Position Sitting Pulse 80 Intake Visit Reasons: 6 wk Medtronic device ck Intake Note: 2 week new Medtronic devive checking today feeling good [place]in Fisher Required: No Allergies ibuprofen [From Motrin] Adverse Reaction (Mild, Verified 05/13/24 11:47) NAUSEA & VOMITING PCN Allergy (Unknown, Uncoded 05/13/24 11:47) unknown reaction Medication List - Last Reconciled 07/01/24 by Yovany Mirza MD atorvastatin 40 mg PO BEDTIME carvedilol (Coreg) 6.25 mg PO BID dulaglutide (Trulicity) 0.75 mg subcut QWEEK furosemide 20 mg PO QDAY glipizide 5 mg PO BID levothyroxine 200 mcg PO DAILY metformin 500 mg PO BID sacubitril-valsartan 49-51 mg (Entresto) 1 tab PO BID HPI Comments Details: Eze comes for follow-up, underwent Bi V ICD placement 2 weeks ago. Had some diaphragmatic contraction post surgery for 3 days but that has now dissipated. He has no significant worsening heart failure syndrome. Denies any orthopnea, PND, leg edema. He said he has been gaining weight due to lack of activity. Taking all his medications. Denies any exertional chest pain. No prolonged palpitations, irregular heartbeat or ICD discharge. [facility] Medical History (Updated 07/01/24 @ 13:03 by Yovany Mirza MD) Biventricular implantable cardioverter-defibrillator (ICD) in situ Nonischemic cardiomyopathy Heart failure with reduced ejection fraction HLD (hyperlipidemia) HTN (hypertension) Diabetes Hypothyroid CONCEPCION (obstructive sleep apnea) Tubular adenoma of colon Nephrolithiasis Surgical History S/P cardiac cath History of tonsillectomy History of lithotripsy History of colonoscopy Family History Father Lung cancer Mother Hx of CABG Social History Patient Tobacco Use Status: Former Tobacco user Review of Systems Const Denies chills, Denies fatigue, Denies fever(s), Denies frequent falls, Denies weakness, Denies weight gain and Denies weight loss ENT Denies dizziness Card Denies chest pain, Denies leg edema, Denies lightheadedness, Denies palpitations, Denies dyspnea, Denies dyspnea on exertion, Denies orthopnea and Denies other (loss of consciousness) Resp Denies cough, Denies dyspnea and Denies dyspnea on exertion GI Denies hematochezia and Denies change in stool character Musc Denies abnormal gait, Denies muscle weakness, Denies numbness, Denies radiating pain into limb and Denies tingling Neuro Denies abnormal gait, Denies dizziness, Denies frequent falls, Denies numbness, Denies tingling and Denies weakness Endo Denies fatigue and Denies palpitations Physical Exam Vital Signs: Last Vital Signs Pulse 80 07/01/24 12:34 BP 124/76 07/01/24 12:34 BMI result Body Mass Index 41.0 Const General: cooperative, healthy appearing, comfortable and no acute distress Orientation/consciousness: patient oriented x3 Neck Neck: Yes normal visual inspection and Yes no JVD Resp Effort & Inspection: normal respiratory effort Auscultation: clear to auscultation bilaterally, no crackles, no rales, no rhonchi and no wheezes Cardio Jugular venous distension: no JVD Rate: regular rate Rhythm: regular rhythm Heart sounds: S1 normal heart sound present, S2 normal heart sound present, no murmurs and no rubs Neuro General: patient oriented x3 Extrem General: Yes normal to inspection, No no pedal edema and No calf tenderness Psych Appearance: grossly normal Mental Status: mental status grossly normal Speech and movement: Normal speech and movement present Assessment & Plan Assessment & Plan (1) Heart failure with reduced ejection fraction: Code(s): I50.20 - Unspecified systolic (congestive) heart failure Category: Medical Plan: Heart failure with reduced ejection fraction, clinically euvolemic and well compensated. Doing very well. Has not been exercising as much. Will refer him to phase 2 cardiac rehabilitation. Advised to avoid over extension of his left arm due to recent device placement. Otherwise will reduce Lasix to 20 mg 3 days a week. Continue carvedilol, Entresto therapy at this point time. Management of heart failure was discussed. Follow-up limited echocardiogram in 3 months time. (2) CAD (coronary artery disease): Code(s): I25.10 - Atherosclerotic heart disease of [place] coronary artery without angina pectoris Category: Medical Plan: CAD, not explain his cardiomyopathy process. Related to multiple risk factors. Continue low-dose aspirin therapy. Continue aggressive risk factor modification. Blood pressure is well optimized continue high-intensity statin therapy with target goal LDL less than 70 mg/dL. Continue aggressive diabetes management. Recommend to participate in regular physical activity and weight loss program. (3) Biventricular implantable cardioverter-defibrillator (ICD) in situ: Comment: [employer], 06/18/2024 Code(s): Z95.810 - Presence of automatic (implantable) cardiac defibrillator Category: Medical Plan: Biventricular ICD in place, discussed with him restriction associated with recent ICD placement. Follow-up in 4 weeks time to assess ICD function with chronic thresholds and reprogrammed at that point in time. Follow-up echocardiogram in 3 months time. Will follow remotely for heart failure and device check. Will follow up in the clinic in 4 weeks time, sooner p.r.n.. Thank you for allowing me to partake in his care Coding Level of Care Code Est Pt Level 4 (06966) Diagnoses Heart failure with reduced ejection fraction I50.20 CAD (coronary artery disease) I25.10 Biventricular implantable cardioverter-defibrillator (ICD) in situ Z95.810
== END 2024-07-01 13:09 | disposition home or self-care (01) ==
PROVIDERS: PCP Internal Medicine; Visit Provider Internal Medicine Cardiovascular Disease
DX: I50.20 Unspecified systolic (congestive) heart failure (principal); I25.10 Atherosclerotic heart disease of native coronary artery without angina pectoris; Z95.810 Presence of automatic (implantable) cardiac defibrillator
CPT/HCPCS: 99214

== ENCOUNTER → 2024-07-01 12:30 | Outpatient (BNVA) | payer MEDICARE, SELFPAY | PROVIDERS: PCP Internal Medicine; Visit Provider Internal Medicine Cardiovascular Disease | DX: I11.0 Hypertensive heart disease with heart failure (principal); I50.20 Unspecified systolic (congestive) heart failure; I25.10 Atherosclerotic heart disease of native coronary artery without angina pectoris; I42.8 Other cardiomyopathies; Z95.810 Presence of automatic (implantable) cardiac defibrillator | CPT/HCPCS: 99212 ==

== ENCOUNTER 2024-07-08 14:40 | Outpatient (REF) | payer MEDICARE, SELFPAY ==
[2024-07-08 14:53] LABS: MANUAL DIFF FLAG NO
[2024-07-08 15:35] LABS: Basophils Absolute Auto 0.1 X10*3/uL (0.0-0.2); Basophils Percent Auto 0.7 % (0-2); Eosinophils Absolute Auto 0.2 X10*3/uL (0.0-0.4); Eosinophils Percent Auto 2.8 % (0-4); Hemoglobin 15.5 g/dl (14.0-18.0); Imm Gran Abs Auto 0.07 X10*3/uL (0.00-0.03); Lymphocytes Percent Auto 27.3 % (20-40); Mean Corpuscular HGB Conc 35.2 g/dl (31.0-36.0); Mean Corpuscular Hemoglobin 30.3 pg (27.0-33.0); Mean Corpuscular Volume 86.1 fL (80.0-98.0); Mean Platelet Volume 10.7 fL (9.4-12.4); Monocytes Absolute Auto 0.5 X10*3/uL (0.1-1.2); Neutrophils Absolute Auto 4.4 x10*3/uL (2.0-8.3); Neutrophils Percent Auto 61.2 % (45-73); Platelet Count 196 X10*3/uL (160-400); Red Blood Count 5.11 X10*6/uL (4.60-5.80); Red Cell Distribution Width 13.1 % (11.0-16.0); White Blood Count 7.2 X10*3/uL (4.8-10.8)
[2024-07-08 15:48] LABS: Estimated Average Glucose 263 mg/dL; Hemoglobin A1c % 10.8 % (<6.0)
[2024-07-08 17:09] LABS: Free T4 (Free Thyroxine) 1.09 ng/dL (0.71-1.85); Thyroid Stimulating Hormone 1.33 uIU/mL (0.32-4.0)
[2024-07-08 17:40] LABS: Alanine Aminotransferase 35 U/L (0-40); Albumin Level 4.1 g/dL (3.5-5.0); Alkaline Phosphatase 114 U/L (39-117); Anion Gap 12 (12-20); Aspartate Amino Transferase 22 U/L (5-37); Bilirubin Total 1.3 mg/dL (0.0-1.0); Blood Urea Nitrogen 21 mg/dL (9-16); Calcium 9.6 mg/dL (8.4-10.2); Carbon Dioxide 31 mmol/L (22-29); Chloride 103 mmol/L (96-108); Estimated Glomerular Filt Rate 54; Potassium 4.2 mmol/L (3.3-5.1); Sodium 142 mmol/L (135-145); Total Protein 6.9 g/dL (6.5-8.0)
[2024-07-08 20:21] LABS: Glucose Random 406 mg/dL (60-115)
== END 2024-07-08 14:41 | disposition home or self-care (01) ==
LOC: HO.LAB 14:40
PROVIDERS: PCP Internal Medicine; Visit Provider Internal Medicine
DX: E11.9 Type 2 diabetes mellitus without complications (principal); I10 Essential (primary) hypertension; E03.9 Hypothyroidism, unspecified; I42.9 Cardiomyopathy, unspecified
CPT/HCPCS: 36415; 80053; 83036; 84439; 84443; 85025

== ENCOUNTER 2024-07-28 15:14 | Outpatient (AMB) | payer MEDICARE, SELFPAY ==
[2024-07-28 15:35] VITALS: BP 138/78; PULSE 64; BMI 41.3
--- NOTE | 2024-07-28 15:35 | A.OFFVIS_ITS ---
Vital Signs 07/28/24 15:35 Height 6 ft Weight 304 lb 3.806 oz BMI 41.3 BP 138/78 Blood Pressure Location Lt brachial Position Sitting Pulse 64 Intake Visit Reasons: 4 wk f/up and medtronic ck per ns Intake Note: 4 week follow-up with medtronic check feeling good Community Living Coach Required: No Allergies ibuprofen [From Motrin] Adverse Reaction (Mild, Verified 05/13/24 11:47) NAUSEA & VOMITING PCN Allergy (Unknown, Uncoded 05/13/24 11:47) unknown reaction Medication List - Last Reconciled 07/28/24 by Yovany Mirza MD atorvastatin 40 mg PO BEDTIME carvedilol (Coreg) 6.25 mg PO BID dulaglutide (Trulicity) 0.75 mg subcut QWEEK furosemide 20 mg PO QDAY PRN glipizide 5 mg PO BID levothyroxine 200 mcg PO DAILY metformin 500 mg PO BID sacubitril-valsartan 49-51 mg (Entresto) 1 tab PO BID HPI Comments Details: Eze comes for follow-up to check his device. He has been doing well. Has not notice much energy change since the LV pacing. Does not have any he cups or phrenic nerve pacing. Denies any orthopnea, PND, leg edema. Says since having stopped exercising he has gained weight and his hemoglobin A1c also increased significantly to 10. He takes all his medications. Denies any prolonged palpitation irregular heartbeat. No orthopnea, PND, leg edema. No lightheadedness, syncope. [facility] Medical History Biventricular implantable cardioverter-defibrillator (ICD) in situ Nonischemic cardiomyopathy Heart failure with reduced ejection fraction HLD (hyperlipidemia) HTN (hypertension) Diabetes Hypothyroid CONCEPCION (obstructive sleep apnea) Tubular adenoma of colon Nephrolithiasis Surgical History S/P cardiac cath History of tonsillectomy History of lithotripsy History of colonoscopy Family History Father Lung cancer Mother Hx of CABG Social History Patient Tobacco Use Status: Former Tobacco user Review of Systems Const Denies chills, Denies fatigue, Denies fever(s), Denies frequent falls, Denies weakness, Denies weight gain and Denies weight loss ENT Denies dizziness Card Denies chest pain, Denies leg edema, Denies lightheadedness, Denies palpitations, Denies dyspnea, Denies dyspnea on exertion, Denies orthopnea and Denies other (loss of consciousness) Resp Denies cough, Denies dyspnea and Denies dyspnea on exertion GI Denies hematochezia and Denies change in stool character Musc Denies abnormal gait, Denies muscle weakness, Denies numbness, Denies radiating pain into limb and Denies tingling Neuro Denies abnormal gait, Denies dizziness, Denies frequent falls, Denies numbness, Denies tingling and Denies weakness Endo Denies fatigue and Denies palpitations Physical Exam Vital Signs: Last Vital Signs Pulse 64 07/28/24 15:35 BP 138/78 07/28/24 15:35 BMI result Body Mass Index 41.3 Const General: cooperative, healthy appearing, comfortable and no acute distress Orientation/consciousness: patient oriented x3 Neck Neck: Yes normal visual inspection and Yes no JVD Resp Effort & Inspection: normal respiratory effort Auscultation: clear to auscultation bilaterally, no crackles, no rales, no rhonchi and no wheezes Cardio Jugular venous distension: no JVD Rate: regular rate Rhythm: regular rhythm Heart sounds: S1 normal heart sound present, S2 normal heart sound present, no murmurs and no rubs Neuro General: patient oriented x3 Extrem General: Yes normal to inspection, No no pedal edema and No calf tenderness Psych Appearance: grossly normal Mental Status: mental status grossly normal Speech and movement: Normal speech and movement present Office Procedures Cardiac Device Check Cardiac Device Check Details: Medtronic biventricular ICD in place. Programmed in DDD at 60 beats per minute. Atrial ventricular sensing is excellent. Atrial and biventricular pacing thresholds excellent with adequate safety margin. LV pacing 97% time. No arrhythmias noted. Pacing and shock lead impedance is stable. Battery life is excellent. [id number] Cardiac Device Check, multi lead implantable defibrillator Procedure code (CPT) selection complete Assessment & Plan Assessment & Plan (1) Heart failure with reduced ejection fraction: Code(s): I50.20 - Unspecified systolic (congestive) heart failure Category: Medical Plan: Heart failure with reduced ejection fraction with severe LV systolic dysfunction secondary to nonischemic cardiomyopathy. Clinically appears euvolemic and well compensated current medical therapy. Status post Bi V ICD placement. Continue carvedilol and Entresto therapy. Continue diuretic regimen as prescribed on every other day. Heart failure management discussed. Daily weight monitoring avoidance of salt loading was discussed. He is going to participate in his own physical therapy and exercise program. If he is not able to he will call my office and will arrange for phase 2 cardiac rehabilitation for him. Follow-up limited echocardiogram in 2 months time. In the clinic in 3 months time. (2) CAD (coronary artery disease): Code(s): I25.10 - Atherosclerotic heart disease of [place] coronary artery without angina pectoris Category: Medical Plan: CAD with 70% disease in the RCA. Continue aggressive medical therapy. Continue low-dose aspirin therapy. Continue high-intensity statin therapy with target goal LDL closer to 60 mg/dL. Follow-up lipid panel in near future. Continue aggressive diabetes management. He said his hemoglobin A1c has significantly increased since he has stopped exercising. He is looking forward to getting back into an exercise program. Target goal hemoglobin A1c less than 7%. (3) Biventricular implantable cardioverter-defibrillator (ICD) in situ: Comment: [employer], 06/18/2024 Code(s): Z95.810 - Presence of automatic (implantable) cardiac defibrillator Category: Medical Plan: Bi V ICD in place, working well. Reprogrammed for adequate function. Will follow-up remotely for heart failure as well as device monitoring. Follow up in the clinic in 3 months time with device apparel trimmings sales representative present. Will follow up in the clinic in 3 months time, sooner p.r.n.. Thank you for allowing me to partake in his care Medications: Changed From furosemide New dose 20mg once a day 20 mg PO QDAY 30 tabs 5RF To furosemide New dose 20mg once a day 20 mg PO QDAY PRN Coding Level of Care Code Est Pt Level 4 (73967) Diagnoses Heart failure with reduced ejection fraction I50.20 CAD (coronary artery disease) I25.10 Biventricular implantable cardioverter-defibrillator (ICD) in situ Z95.810 CPT Codes Cardiac Device Check - Cardiac Device 6: [id number] Cardiac Device Check, multi lead implantable defibrillator ([id number])
== END 2024-07-28 16:33 | disposition home or self-care (01) ==
PROVIDERS: PCP Internal Medicine; Visit Provider Internal Medicine Cardiovascular Disease
DX: I50.20 Unspecified systolic (congestive) heart failure (principal); I25.10 Atherosclerotic heart disease of native coronary artery without angina pectoris; Z95.810 Presence of automatic (implantable) cardiac defibrillator
CPT/HCPCS: 93284; 99214

== ENCOUNTER → 2024-07-28 15:14 | Outpatient (BNVA) | payer MEDICARE, SELFPAY | PROVIDERS: PCP Internal Medicine; Visit Provider Internal Medicine Cardiovascular Disease | DX: I50.20 Unspecified systolic (congestive) heart failure (principal); I25.10 Atherosclerotic heart disease of native coronary artery without angina pectoris; Z45.02 Encounter for adjustment and management of automatic implantable cardiac defibrillator | CPT/HCPCS: 99212 ==

== ENCOUNTER → 2024-08-18 23:59 | Outpatient (BNV) | payer MEDICARE, SELFPAY ==
--- NOTE | 2024-08-19 09:30 | MHC.OFFVIS ---
Intake Visit Reasons: Remote ICD check- Medtronic Allergies ibuprofen [From Motrin] Adverse Reaction (Mild, Verified 05/13/24 11:47) NAUSEA & VOMITING PCN Allergy (Unknown, Uncoded 05/13/24 11:47) unknown reaction PFSH Medical History Biventricular implantable cardioverter-defibrillator (ICD) in situ Nonischemic cardiomyopathy Heart failure with reduced ejection fraction HLD (hyperlipidemia) HTN (hypertension) Diabetes Hypothyroid CONCEPCION (obstructive sleep apnea) Tubular adenoma of colon Nephrolithiasis Surgical History S/P cardiac cath History of tonsillectomy History of lithotripsy History of colonoscopy Family History Father Lung cancer Mother Hx of CABG Social History Patient Tobacco Use Status: Former Tobacco user Office Procedures Cardiac Device Check Cardiac Device Check Details: Remote ICD report generated 08/18/2024. ICD function is adequate. Bi V pacing 97.1% of the time [id number] Cardiac Interrogation, implant defibrillator w/interim Procedure code (CPT) selection complete Assessment & Plan Assessment & Plan (1) Biventricular implantable cardioverter-defibrillator (ICD) in situ: Comment: [employer], 06/18/2024 Code(s): Z95.810 - Presence of automatic (implantable) cardiac defibrillator Category: Medical Plan: See above Coding Level of Care Code Procedure Only Diagnoses Biventricular implantable cardioverter-defibrillator (ICD) in situ Z95.810 CPT Codes Cardiac Device Check - Cardiac Device 13: [id number] Cardiac Interrogation, implant defibrillator w/interim ([id number])
== END ==
PROVIDERS: PCP Internal Medicine; Visit Provider Internal Medicine Cardiovascular Disease
DX: Z45.02 Encounter for adjustment and management of automatic implantable cardiac defibrillator (principal)
CPT/HCPCS: 93295

== ENCOUNTER → 2024-08-18 23:59 | Outpatient (BNV) | payer MEDICARE, SELFPAY ==
--- NOTE | 2024-08-19 09:29 | MHC.OFFVIS ---
Intake Visit Reasons: Remote HF monitoring- Medtronic Allergies ibuprofen [From Motrin] Adverse Reaction (Mild, Verified 05/13/24 11:47) NAUSEA & VOMITING PCN Allergy (Unknown, Uncoded 05/13/24 11:47) unknown reaction PFSH Medical History Biventricular implantable cardioverter-defibrillator (ICD) in situ Nonischemic cardiomyopathy Heart failure with reduced ejection fraction HLD (hyperlipidemia) HTN (hypertension) Diabetes Hypothyroid CONCEPCION (obstructive sleep apnea) Tubular adenoma of colon Nephrolithiasis Surgical History S/P cardiac cath History of tonsillectomy History of lithotripsy History of colonoscopy Family History Father Lung cancer Mother Hx of CABG Social History Patient Tobacco Use Status: Former Tobacco user Office Procedures Cardiac Device Check Cardiac Device Check Details: Remote heart failure report generated 08/18/2024. Heart failure parameters are stable [id number] Cardiac Device Interrogation, cardio physiologic monitor Procedure code (CPT) selection complete Assessment & Plan Assessment & Plan (1) Biventricular implantable cardioverter-defibrillator (ICD) in situ: Comment: [employer], 06/18/2024 Code(s): Z95.810 - Presence of automatic (implantable) cardiac defibrillator Category: Medical Plan: See above Coding Level of Care Code Procedure Only Diagnoses Biventricular implantable cardioverter-defibrillator (ICD) in situ Z95.810 CPT Codes Cardiac Device Check - Cardiac Device 15: [id number] Cardiac Device Interrogation, cardio physiologic monitor ([id number])
== END ==
PROVIDERS: PCP Internal Medicine; Visit Provider Internal Medicine Cardiovascular Disease
DX: Z45.02 Encounter for adjustment and management of automatic implantable cardiac defibrillator (principal)
CPT/HCPCS: 93297

== ENCOUNTER → 2024-09-17 23:59 | Outpatient (BNV) | payer MEDICARE, SELFPAY ==
--- NOTE | 2024-09-22 16:54 | MHC.OFFVIS ---
Intake Visit Reasons: Remote HF monitoring- Medtronic Allergies ibuprofen [From Motrin] Adverse Reaction (Mild, Verified 05/13/24 11:47) NAUSEA & VOMITING PCN Allergy (Unknown, Uncoded 05/13/24 11:47) unknown reaction PFSH Medical History (Updated 09/08/24 @ 10:33 by Corrine Fuller PA-C) Nicotine dependence, cigarettes, uncomplicated Biventricular implantable cardioverter-defibrillator (ICD) in situ Nonischemic cardiomyopathy Heart failure with reduced ejection fraction HLD (hyperlipidemia) HTN (hypertension) Diabetes Hypothyroid CONCEPCION (obstructive sleep apnea) Tubular adenoma of colon Nephrolithiasis Surgical History S/P cardiac cath History of tonsillectomy History of lithotripsy History of colonoscopy Family History Father Lung cancer Mother Hx of CABG Social History Patient Tobacco Use Status: Former Tobacco user Office Procedures Cardiac Device Check Cardiac Device Check Details: Remote heart failure report generated 09/17/2024. Heart failure parameters are stable [id number] Cardiac Device Interrogation, cardio physiologic monitor Procedure code (CPT) selection complete Assessment & Plan Assessment & Plan (1) Biventricular implantable cardioverter-defibrillator (ICD) in situ: Comment: [employer], 06/18/2024 Code(s): Z95.810 - Presence of automatic (implantable) cardiac defibrillator Category: Medical Plan: See above Coding Level of Care Code Procedure Only Diagnoses Biventricular implantable cardioverter-defibrillator (ICD) in situ Z95.810 CPT Codes Cardiac Device Check - Cardiac Device 15: [id number] Cardiac Device Interrogation, cardio physiologic monitor ([id number])
== END ==
PROVIDERS: PCP Internal Medicine; Visit Provider Internal Medicine Cardiovascular Disease
DX: Z45.02 Encounter for adjustment and management of automatic implantable cardiac defibrillator (principal)
CPT/HCPCS: 93297

== ENCOUNTER → 2024-10-13 09:48 | Outpatient (REF) | payer MEDICARE, SELFPAY ==
--- NOTE | 2024-10-13 09:53 | CA_ITS ---
Transthoracic Echocardiogram Patient (Last, First, Middle): Marco Cameron F Gender: Male Date of : 1955 Age: 69 Procedure Date: 10/13/2024 Procedure Type: Transthoracic Echocardiogram Location: OP Height: 182.88 cm Weight: 139.71 kg BSA: 2.56 m2 Heart Rate: 68 bpm BP: 136 / 74 mmHg [place] Truck Driver: SB Referring MD: Yovany Mirza MD Symptoms: I42.9 - Cardiomyopathy, unspecified Study Quality: Adequate/Limited study ordered ECG Rhythm: Sinus Conclusions: - The left ventricular systolic function is severely decreased. The calculated ejection fraction is 29% by biplane method. - There is severe global hypokinesis. - The mid anterolateral and mid inferolateral segments are akinetic. Findings Left Ventricle Severely increased left ventricular cavity size. The left ventricular systolic function is severely decreased. The calculated ejection fraction is 29% by biplane method. There is evidence of regional wall motion abnormalities. There is severe global hypokinesis. There is mild septal asymmetric hypertrophy. LV peak GLS -10.1%. Wall Motion Rest Echo Findings The mid anterolateral and mid inferolateral segments are akinetic. Great Vessels There is mild dilatation of the ascending aorta measuring 4.00 cm. Venous The inferior vena cava is normal in size and collapses greater than 50% with inspiration. Prior Study Comparison No significant change compared to prior study dated: 02/25/2024. Measurements 2D Linear Measurements IVSd: 1.20 0.6-0.9/0.6-1.0 cm LVIDd: 6.97 3.9-5.3/4.2-5.9 cm LVIDd Index: 2.72 2.4-3.2/2.2-3.1 cm/m2 LVIDs: 5.91 2.0-3.6 cm LVPWd: 0.97 0.7-1.1 cm LV Mass: 440.90 67-162/88-224 g LV Mass Index: 172.23 43-95/49-115 g/m2 LVOT Diam: 2.40 3.0+(-)1.3 cm 2D Systolic Function EF 4C: 33.00 >55% EF 2C: 28.80 >55% EF BiP: 28.60 >55% LVOT LVOT Pk Marcial: 0.81 LVOT Mn Marcial: 0.59 LVOT VTI: 0.17 LVOT Pk Grad: 3.00 LVOT Mn Grad: 2.00 LVOT Diam: 2.40 LVOT Area: 4.52 Great Vessels Aorta Ao Asc: 4.00 2.1-3.4 cm Updated in Other Vendor System with Status of Final David Verma MD electronically signed on 10/13/2024 10:52:42 AM with status of Final
== END ==
LOC: HO.CARD 09:48
PROVIDERS: PCP Internal Medicine; Visit Provider Internal Medicine Cardiovascular Disease
DX: I50.20 Unspecified systolic (congestive) heart failure (principal); I42.9 Cardiomyopathy, unspecified
CPT/HCPCS: 93308; 93356

== ENCOUNTER → 2024-10-13 09:53 | Outpatient (BNV) | payer MEDICARE, SELFPAY | PROVIDERS: PCP Internal Medicine; Visit Provider Internal Medicine | DX: I42.2 Other hypertrophic cardiomyopathy (principal); I50.20 Unspecified systolic (congestive) heart failure | CPT/HCPCS: 93308; 93356 ==

== ENCOUNTER 2024-10-20 15:00 | Outpatient (AMB) | payer MEDICARE, SELFPAY ==
[2024-10-20 15:04] VITALS: BP 128/76; PULSE 86; BMI 41.3
--- NOTE | 2024-10-20 15:04 | A.OFFVIS_ITS ---
Vital Signs 10/20/24 15:04 Height 6 ft Weight 304 lb 3.806 oz BMI 41.3 BP 128/76 Blood Pressure Location Lt brachial Position Sitting Pulse 86 Intake Visit Reasons: 3 mth f/up Intake Note: 3 month follow-up feeling good Histologist Required: No Allergies ibuprofen [From Motrin] Adverse Reaction (Mild, Verified 05/13/24 11:47) NAUSEA & VOMITING PCN Allergy (Unknown, Uncoded 05/13/24 11:47) unknown reaction Medication List - Last Reconciled 10/20/24 by Yovany Mirza MD atorvastatin 40 mg PO BEDTIME carvedilol 6.25 mg PO BID dulaglutide (Trulicity) 0.75 mg subcut QWEEK furosemide 20 mg PO DAILY glipizide 5 mg PO BID insulin glargine (Lantus U-100 Insulin) 10 units subcut QPM levothyroxine 200 mcg PO DAILY metformin 500 mg PO BID sacubitril-valsartan 49-51 mg (Entresto) 1 tab PO BID HPI Comments Details: Eze comes for follow-up. He has been doing very well from cardiac perspective. His most recent echocardiogram shows persistent severe LV systolic dysfunction with LVEF of 29%. Denies any heart failure symptoms. He occasionally gets lightheaded when he quickly jumps out of bed in the morning which last for few seconds. No syncopal episodes. No orthopnea, PND, leg edema. Tolerating his medications well otherwise. No prolonged palpitations, irregular heartbeat, ICD discharge. No chest pain. [facility] Medical History Nicotine dependence, cigarettes, uncomplicated Biventricular implantable cardioverter-defibrillator (ICD) in situ Nonischemic cardiomyopathy Heart failure with reduced ejection fraction HLD (hyperlipidemia) HTN (hypertension) Diabetes Hypothyroid CONCEPCION (obstructive sleep apnea) Tubular adenoma of colon Nephrolithiasis Surgical History S/P cardiac cath History of tonsillectomy History of lithotripsy History of colonoscopy Family History Father Lung cancer Mother Hx of CABG Social History Patient Tobacco Use Status: Former Tobacco user Review of Systems Const Denies chills, Denies fatigue, Denies fever(s), Denies frequent falls, Denies weakness, Denies weight gain and Denies weight loss ENT Denies dizziness Card Denies chest pain, Denies leg edema, Denies lightheadedness, Denies palpitations, Denies dyspnea, Denies dyspnea on exertion, Denies orthopnea and Denies other (loss of consciousness) Resp Denies cough, Denies dyspnea and Denies dyspnea on exertion GI Denies hematochezia and Denies change in stool character Musc Denies abnormal gait, Denies muscle weakness, Denies numbness, Denies radiating pain into limb and Denies tingling Neuro Denies abnormal gait, Denies dizziness, Denies frequent falls, Denies numbness, Denies tingling and Denies weakness Endo Denies fatigue and Denies palpitations Physical Exam Vital Signs: Last Vital Signs Pulse 86 10/20/24 15:04 BP 128/76 10/20/24 15:04 BMI result Body Mass Index 41.3 Const General: cooperative, healthy appearing, comfortable and no acute distress Orientation/consciousness: patient oriented x3 Neck Neck: Yes normal visual inspection and Yes no JVD Resp Effort & Inspection: normal respiratory effort Auscultation: clear to auscultation bilaterally, no crackles, no rales, no r honchi and no wheezes Cardio Jugular venous distension: no JVD Rate: regular rate Rhythm: regular rhythm Heart sounds: S1 normal heart sound present, S2 normal heart sound present, no murmurs and no rubs Neuro General: patient oriented x3 Extrem General: Yes normal to inspection, No no pedal edema and No calf tenderness Psych Appearance: grossly normal Mental Status: mental status grossly normal Speech and movement: Normal speech and movement present Assessment & Plan Assessment & Plan (1) Nonischemic cardiomyopathy: Code(s): I42.8 - Other cardiomyopathies Category: Medical Plan: Severe persistent LV systolic dysfunction, nonischemic would underlying coronary artery disease which does not explain the extent of LV systolic dysfunction. Clinically euvolemic and well compensated without any signs of congestive heart failure. Continue current neurohormonal modulation with Entresto as well as carvedilol therapy. Continue to gradually increase in uptitrate therapy. He does have symptoms of orthostatic lightheadedness and may not be able to maximize medical therapy. Will increase carvedilol to 12.5 mg b.i.d.. Continue Entresto at current dose. Orthostatic precautions were discussed. Continue current diuretic regimen. Daily weight monitoring avoidance of salt loading was discussed. Discussed with him to call me with any new symptoms. Follow up in the clinic in 6 months time. Thank you for allowing me to partake in his care Medications: New carvedilol (Coreg) must administer with a meal/food 12.5 mg PO BID 180 tabs 3RF Discontinued carvedilol Discontinued Reason: Doctor's Order 6.25 mg PO BID 180 tabs 1RF Coding Level of Care Code Est Pt Level 4 (92979) Complex EM visit Add On G2211 Diagnoses Nonischemic cardiomyopathy I42.8
== END 2024-10-20 15:31 | disposition home or self-care (01) ==
PROVIDERS: PCP Internal Medicine; Visit Provider Internal Medicine Cardiovascular Disease
DX: I42.8 Other cardiomyopathies (principal)
CPT/HCPCS: 99214; G2211

== ENCOUNTER → 2024-10-20 15:00 | Outpatient (BNVA) | payer MEDICARE, SELFPAY | PROVIDERS: PCP Internal Medicine; Visit Provider Internal Medicine Cardiovascular Disease | DX: I42.8 Other cardiomyopathies (principal) | CPT/HCPCS: 99212 ==

== ENCOUNTER → 2024-10-20 23:59 | Outpatient (BNV) | payer MEDICARE, SELFPAY ==
--- NOTE | 2024-10-28 16:16 | MHC.OFFVIS ---
Intake Visit Reasons: Remote HF monitoring- [employer] Allergies ibuprofen [From Motrin] Adverse Reaction (Mild, Verified 05/13/24 11:47) NAUSEA & VOMITING PCN Allergy (Unknown, Uncoded 05/13/24 11:47) unknown reaction PFSH Medical History Nicotine dependence, cigarettes, uncomplicated Biventricular implantable cardioverter-defibrillator (ICD) in situ Nonischemic cardiomyopathy Heart failure with reduced ejection fraction HLD (hyperlipidemia) HTN (hypertension) Diabetes Hypothyroid CONCEPCION (obstructive sleep apnea) Tubular adenoma of colon Nephrolithiasis Surgical History S/P cardiac cath History of tonsillectomy History of lithotripsy History of colonoscopy Family History Father Lung cancer Mother Hx of CABG Social History Patient Tobacco Use Status: Former Tobacco user Office Procedures Cardiac Device Check Cardiac Device Check Details: Remote heart failure report generated 10/20/2024. Heart failure parameters are stable [id number] Cardiac Device Interrogation, cardio physiologic monitor Procedure code (CPT) selection complete Assessment & Plan Assessment & Plan (1) Biventricular implantable cardioverter-defibrillator (ICD) in situ: Comment: [employer], 06/18/2024 Code(s): Z95.810 - Presence of automatic (implantable) cardiac defibrillator Category: Medical Plan: See above Coding Level of Care Code Procedure Only Diagnoses Biventricular implantable cardioverter-defibrillator (ICD) in situ Z95.810 CPT Codes Cardiac Device Check - Cardiac Device 15: [id number] Cardiac Device Interrogation, cardio physiologic monitor ([id number])
== END ==
PROVIDERS: PCP Internal Medicine; Visit Provider Internal Medicine Cardiovascular Disease
DX: Z45.02 Encounter for adjustment and management of automatic implantable cardiac defibrillator (principal)
CPT/HCPCS: 93297

== ENCOUNTER 2024-10-27 06:34 | Outpatient (REF) | payer MEDICARE, SELFPAY ==
[2024-10-27 10:08] LABS: Appearance Urine Turbid; Color Urine Yellow; Glucose Urine UA 100 mg/dL (Negative); Leukocyte Esterase Urine Negative (Negative); Nitrite Urine Negative (Negative); PH 5.5 (5.0-9.0); Specific Gravity - Urine 1.025 (1.005-1.025); UMIC TRIGGER UA YES; Urine Blood Negative (Negative); Urine Ketones Negative (Negative); Urine Protein 30 (1+) mg/dL (Neg-Trace)
[2024-10-27 10:11] LABS: Bacteria Urine None Seen (None Seen); Hyaline Casts Urine 0-2 /LPF (0-2); RBC Urine 0-2 /HPF (0-2); Squamous Epithelial Cell Urine 0-2 /HPF (0-2); WBC Urine 0-5 /HPF (0-5)
[2024-10-27 10:17] LABS: MANUAL DIFF FLAG NO
[2024-10-27 10:35] LABS: Basophils Absolute Auto 0.1 X10*3/uL (0.0-0.2); Basophils Percent Auto 0.8 % (0-2); Eosinophils Absolute Auto 0.2 X10*3/uL (0.0-0.4); Hematocrit 44.3 % (42.0-52.0); Hemoglobin 14.8 g/dl (14.0-18.0); Imm Gran Abs Auto 0.05 X10*3/uL (0.00-0.03); Imm Gran Pct Auto 0.8 % (0.0-0.4); Lymphocytes Absolute Auto 1.8 X10*3/uL (1.2-4.9); Mean Corpuscular HGB Conc 33.4 g/dl (31.0-36.0); Mean Corpuscular Hemoglobin 28.6 pg (27.0-33.0); Mean Corpuscular Volume 85.7 fL (80.0-98.0); Mean Platelet Volume 10.8 fL (9.4-12.4); Monocytes Absolute Auto 0.4 X10*3/uL (0.1-1.2); Monocytes Percent Auto 6.2 % (2-11); Neutrophils Absolute Auto 4.1 x10*3/uL (2.0-8.3); Neutrophils Percent Auto 62.2 % (45-73); Platelet Count 202 X10*3/uL (160-400); Red Blood Count 5.17 X10*6/uL (4.60-5.80); Red Cell Distribution Width 13.5 % (11.0-16.0); White Blood Count 6.6 X10*3/uL (4.8-10.8)
[2024-10-27 10:49] LABS: Estimated Average Glucose 192 mg/dL; Hemoglobin A1C 246.3538 umol/L; Hemoglobin A1c % 8.3 % (<6.0); Total Hemoglobin (HGBA1C) 3686.9729 umol/L
[2024-10-27 10:49] LABS: Microalbum/Creatinine Ratio Ur 147.3 ug/mg cr (<30)
[2024-10-27 11:10] LABS: Prostate Specific Antigen Scr 4.48 ng/mL (<0.05-4.0)
[2024-10-27 11:15] LABS: Alanine Aminotransferase 36 U/L (0-40); Albumin Level 3.9 g/dL (3.5-5.0); Alkaline Phosphatase 79 U/L (39-117); Anion Gap 10 (12-20); Aspartate Amino Transferase 28 U/L (5-37); Bilirubin Total 1.3 mg/dL (0.0-1.0); Blood Urea Nitrogen 19 mg/dL (9-16); Calcium 9.4 mg/dL (8.4-10.2); Carbon Dioxide 28 mmol/L (22-29); Chloride 106 mmol/L (96-108); Cholesterol 138 mg/dL (<200); Estimated Glomerular Filt Rate > 60; Glucose Fasting 222 mg/dL (60-99); HDL Cholesterol 36 mg/dL (>40); LDL Cholesterol Calculated 74 mg/dL (<100); Potassium 3.7 mmol/L (3.3-5.1); Sodium 140 mmol/L (135-145); Total Protein 6.8 g/dL (6.5-8.0); Triglycerides 141 mg/dL (<150)
--- OUTSIDE RECORDS SUMMARY | 2024-10-29 12:30 | XMS_ITS | Patient Health Record ---
Author Organization [facility] Address [address] [place] [address] Care Team Providers Care Inside [employer] Name Role Phone Yared Chavarria MD Primary Care Provider Dat Clalaway Jr Unavailable ALLERGIES Allergen (clinical drug ingredient) Drug/Non Drug Allergy documented on EMR Reaction Allergy Type Onset Date Status Penicillin Unknown Drug Allergy Active REASON FOR REFERRAL No Information MEDICATIONS Medication SIG (Take, Route, Frequency, Duration) Notes Start Date End Date Status Melatonin 3 MG 1 tablet at bedtime as needed Orally Once a day for 30 day(s) Active Lisinopril 5 MG Oral for 90 Ac tive Trulicity 0.75 MG/0.5ML INJECT 1 PEN SUBCUTANEOUSLY ONCE A WEEK Subcutaneous for 28 Active Simvastatin 20 MG TAKE 1 TABLET BY SANTIAGO TH EVERY DAY Oral for 90 Active glipiZIDE 5 MG TAKE 2 TABLETS BY MO UTH TWICE A DAY Oral for 90 Active Levothyroxine Sodium 200 MCG Oral for 90 Active MiraLax (colon prep) 17 GM/SCOOP mixed with Gatorade or Crystal Light Orally begin at 5:00 p.m. the day before the procedure for 1 day 03/12/2023 Active metFORMIN HCl 500 MG Oral for 90 Active IMMUNIZATIONS Vaccine Route Administration Date Status Comme nts Influenza Unknown 09/05/2022 Administered SOCIAL HISTORY Tobacco Use: Social History Observation Description Date Details (start date - stop date) Never Smoker NA - NA Sex Assigned At : Social History Observation Description Sex Assigned At Unknown Tobacco Use/Smoking Question Answer Notes Patient is a nonsmoker Alcohol Screen Question Answer Notes Did you have a drink contain ing alcohol in the past year? Yes How often did you have a dri nk containing alcohol in the past year? 2 to 4 times a month (2 points) How many drinks did you have on a typical day when you were drinking in the past year? 1 or 2 drinks (0 point) How often did you have 6 or more drinks on one occasion in the past year? 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) Active confirmed [id number] PLAN OF TREATMENT Future Test Test Name Order Date COLONOSCOPY 03/12/2023 Insurance Providers Payer Name Payer Address Payer Phone Subscriber Number Group Number Insured Name Patient Relationship to Insured Coverage Start Date Coverage End Date MEDICARE OF [place] [address] [place] [address] [id number] ROGER GAVIN Self - patient is the insured [employer] ATT[employer] CLAIMS [address] [place] [phone] [id number] ROGER GAVIN Self - patient is the insured MEDICAL (GENERAL) HISTORY Medical History History ICD Code Diabetes mellitus type 2 Hypertension Elevated cholesterol Hypothyroid Obstructive sleep apnea/CPAP Nephrolithiasis Surgical History Surgery Date(Month/Year) Hospitalization History Reason Date(Month/Year) kidney stones 03/30
== END 2024-10-27 06:35 | disposition home or self-care (01) ==
LOC: HO.HMGCLDS 06:34
PROVIDERS: PCP Internal Medicine; Visit Provider Internal Medicine
DX: E11.9 Type 2 diabetes mellitus without complications (principal); I10 Essential (primary) hypertension; N40.0 Benign prostatic hyperplasia without lower urinary tract symptoms; E03.9 Hypothyroidism, unspecified; E78.00 Pure hypercholesterolemia, unspecified; Z12.5 Encounter for screening for malignant neoplasm of prostate
CPT/HCPCS: 36415; 80053; 80061; 81001; 82043; 82570; 83036; 84153; 85025

== ENCOUNTER → 2024-11-18 23:59 | Outpatient (BNV) | payer MEDICARE, SELFPAY ==
--- NOTE | 2024-11-18 16:16 | MHC.OFFVIS ---
Intake Visit Reasons: Remote HF monitoring- [employer] Allergies ibuprofen [From Motrin] Adverse Reaction (Mild, Verified 05/13/24 11:47) NAUSEA & VOMITING PCN Allergy (Unknown, Uncoded 05/13/24 11:47) unknown reaction PFSH Medical History Nicotine dependence, cigarettes, uncomplicated Biventricular implantable cardioverter-defibrillator (ICD) in situ Nonischemic cardiomyopathy Heart failure with reduced ejection fraction HLD (hyperlipidemia) HTN (hypertension) Diabetes Hypothyroid CONCEPCION (obstructive sleep apnea) Tubular adenoma of colon Nephrolithiasis Surgical History S/P cardiac cath History of tonsillectomy History of lithotripsy History of colonoscopy Family History Father Lung cancer Mother Hx of CABG Social History Patient Tobacco Use Status: Former Tobacco user Office Procedures Cardiac Device Check Cardiac Device Check Details: Remote heart failure report generated 11/18/2024. Heart failure parameters are stable [id number] Cardiac Device Interrogation, cardio physiologic monitor Procedure code (CPT) selection complete Assessment & Plan Assessment & Plan (1) Biventricular implantable cardioverter-defibrillator (ICD) in situ: Comment: [employer], 06/18/2024 Code(s): Z95.810 - Presence of automatic (implantable) cardiac defibrillator Category: Medical Plan: See above Coding Level of Care Code Procedure Only Diagnoses Biventricular implantable cardioverter-defibrillator (ICD) in situ Z95.810 CPT Codes Cardiac Device Check - Cardiac Device 15: 69389-Xsvqyr Cardiac Device Interrogation, cardio physiologic monitor ([id number])
== END ==
PROVIDERS: PCP Internal Medicine; Visit Provider Internal Medicine Cardiovascular Disease
DX: Z45.02 Encounter for adjustment and management of automatic implantable cardiac defibrillator (principal)
CPT/HCPCS: 93297

== ENCOUNTER → 2024-11-18 23:59 | Outpatient (BNV) | payer MEDICARE, SELFPAY ==
--- NOTE | 2024-11-18 16:17 | MHC.OFFVIS ---
Intake Visit Reasons: Remote device check- [employer] Allergies ibuprofen [From Motrin] Adverse Reaction (Mild, Verified 05/13/24 11:47) NAUSEA & VOMITING PCN Allergy (Unknown, Uncoded 05/13/24 11:47) unknown reaction PFSH Medical History Nicotine dependence, cigarettes, uncomplicated Biventricular implantable cardioverter-defibrillator (ICD) in situ Nonischemic cardiomyopathy Heart failure with reduced ejection fraction HLD (hyperlipidemia) HTN (hypertension) Diabetes Hypothyroid CONCEPCION (obstructive sleep apnea) Tubular adenoma of colon Nephrolithiasis Surgical History S/P cardiac cath History of tonsillectomy History of lithotripsy History of colonoscopy Family History Father Lung cancer Mother Hx of CABG Social History Patient Tobacco Use Status: Former Tobacco user Office Procedures Cardiac Device Check Cardiac Device Check Details: Remote ICD report generated 11/18/2024. ICD function is adequate. Bi V pacing 97.3% of time 74708-Ptpihj Cardiac Interrogation, implant defibrillator w/interim Procedure code (CPT) selection complete Assessment & Plan Assessment & Plan (1) Biventricular implantable cardioverter-defibrillator (ICD) in situ: Comment: [employer], 06/18/2024 Code(s): Z95.810 - Presence of automatic (implantable) cardiac defibrillator Category: Medical Plan: See above Coding Level of Care Code Procedure Only Diagnoses Biventricular implantable cardioverter-defibrillator (ICD) in situ Z95.810 CPT Codes Cardiac Device Check - Cardiac Device 13: 79603-Ozqcky Cardiac Interrogation, implant defibrillator w/interim ([id number])
== END ==
PROVIDERS: PCP Internal Medicine; Visit Provider Internal Medicine Cardiovascular Disease
DX: Z45.02 Encounter for adjustment and management of automatic implantable cardiac defibrillator (principal)
CPT/HCPCS: 93295

== ENCOUNTER → 2024-12-18 23:59 | Outpatient (BNV) | payer MEDICARE, SELFPAY ==
--- NOTE | 2024-12-24 14:24 | MHC.OFFVIS ---
Intake Visit Reasons: Remote HF monitoring- [employer] Allergies ibuprofen [From Motrin] Adverse Reaction (Mild, Verified 05/13/24 11:47) NAUSEA & VOMITING PCN Allergy (Unknown, Uncoded 05/13/24 11:47) unknown reaction PFSH Medical History Nicotine dependence, cigarettes, uncomplicated Biventricular implantable cardioverter-defibrillator (ICD) in situ Nonischemic cardiomyopathy Heart failure with reduced ejection fraction HLD (hyperlipidemia) HTN (hypertension) Diabetes Hypothyroid CONCEPCION (obstructive sleep apnea) Tubular adenoma of colon Nephrolithiasis Surgical History S/P cardiac cath History of tonsillectomy History of lithotripsy History of colonoscopy Family History Father Lung cancer Mother Hx of CABG Social History Patient Tobacco Use Status: Former Tobacco user Office Procedures Cardiac Device Check Cardiac Device Check Details: Remote heart failure report generated 12/18/2024. Heart failure parameters are stable [id number] Cardiac Device Interrogation, cardio physiologic monitor Procedure code (CPT) selection complete Assessment & Plan Assessment & Plan (1) Biventricular implantable cardioverter-defibrillator (ICD) in situ: Comment: [employer], 06/18/2024 Code(s): Z95.810 - Presence of automatic (implantable) cardiac defibrillator Category: Medical Plan: See above Coding Level of Care Code Procedure Only Diagnoses Biventricular implantable cardioverter-defibrillator (ICD) in situ Z95.810 CPT Codes Cardiac Device Check - Cardiac Device 15: 57285-Haorwh Cardiac Device Interrogation, cardio physiologic monitor ([id number])
== END ==
PROVIDERS: PCP Internal Medicine; Visit Provider Internal Medicine Cardiovascular Disease
DX: Z45.02 Encounter for adjustment and management of automatic implantable cardiac defibrillator (principal)
CPT/HCPCS: 93297

== ENCOUNTER → 2025-01-17 23:59 | Outpatient (BNV) | payer MEDICARE, SELFPAY ==
--- NOTE | 2025-01-20 11:05 | MHC.OFFVIS ---
Intake Visit Reasons: Remote HF monitoring- [employer] Allergies ibuprofen [From Motrin] Adverse Reaction (Mild, Verified 05/13/24 11:47) NAUSEA & VOMITING PCN Allergy (Unknown, Uncoded 05/13/24 11:47) unknown reaction PFSH Medical History Nicotine dependence, cigarettes, uncomplicated Biventricular implantable cardioverter-defibrillator (ICD) in situ Nonischemic cardiomyopathy Heart failure with reduced ejection fraction HLD (hyperlipidemia) HTN (hypertension) Diabetes Hypothyroid CONCEPCION (obstructive sleep apnea) Tubular adenoma of colon Nephrolithiasis Surgical History S/P cardiac cath History of tonsillectomy History of lithotripsy History of colonoscopy Family History Father Lung cancer Mother Hx of CABG Social History Patient Tobacco Use Status: Former Tobacco user Office Procedures Cardiac Device Check Cardiac Device Check Details: Remote heart failure report generated 01/17/2025. Heart failure parameters are stable [id number]-[id number] Cardiac Device Interrogation, cardio physiologic monitor Procedure code (CPT) selection complete Assessment & Plan Assessment & Plan (1) Biventricular implantable cardioverter-defibrillator (ICD) in situ: Comment: [employer], 06/18/2024 Code(s): Z95.810 - Presence of automatic (implantable) cardiac defibrillator Category: Medical Plan: See above Coding Level of Care Code Procedure Only Diagnoses Biventricular implantable cardioverter-defibrillator (ICD) in situ Z95.810 CPT Codes Cardiac Device Check - Cardiac Device 15: 04058-Rlgmtq Cardiac Device Interrogation, cardio physiologic monitor ([id number])
== END ==
PROVIDERS: PCP Internal Medicine; Visit Provider Internal Medicine Cardiovascular Disease
DX: Z45.02 Encounter for adjustment and management of automatic implantable cardiac defibrillator (principal)
CPT/HCPCS: 93297

== ENCOUNTER → 2025-02-16 23:59 | Outpatient (BNV) | payer MEDICARE, SELFPAY ==
--- NOTE | 2025-02-18 13:02 | MHC.OFFVIS ---
Intake Visit Reasons: REmote device check- [employer] Allergies ibuprofen [From Motrin] Adverse Reaction (Mild, Verified 05/13/24 11:47) NAUSEA & VOMITING PCN Allergy (Unknown, Uncoded 05/13/24 11:47) unknown reaction PFSH Medical History Nicotine dependence, cigarettes, uncomplicated Biventricular implantable cardioverter-defibrillator (ICD) in situ Nonischemic cardiomyopathy Heart failure with reduced ejection fraction HLD (hyperlipidemia) HTN (hypertension) Diabetes Hypothyroid CONCEPCION (obstructive sleep apnea) Tubular adenoma of colon Nephrolithiasis Surgical History S/P cardiac cath History of tonsillectomy History of lithotripsy History of colonoscopy Family History Father Lung cancer Mother Hx of CABG Social History Patient Tobacco Use Status: Former Tobacco user Office Procedures Cardiac Device Check Cardiac Device Check Details: Remote ICD report generated 02/16/2025. ICD function in his adequate. Bi V pacing 97% of the time [id number] Cardiac Interrogation, implant defibrillator w/interim Procedure code (CPT) selection complete Assessment & Plan Assessment & Plan (1) Biventricular implantable cardioverter-defibrillator (ICD) in situ: Comment: [employer], 06/18/2024 Code(s): Z95.810 - Presence of automatic (implantable) cardiac defibrillator Category: Medical Plan: See above Coding Level of Care Code Procedure Only Diagnoses Biventricular implantable cardioverter-defibrillator (ICD) in situ Z95.810 CPT Codes Cardiac Device Check - Cardiac Device 13: 19644-Cqjbmk Cardiac Interrogation, implant defibrillator w/interim ([id number])
== END ==
PROVIDERS: PCP Internal Medicine; Visit Provider Internal Medicine Cardiovascular Disease
DX: Z45.02 Encounter for adjustment and management of automatic implantable cardiac defibrillator (principal)
CPT/HCPCS: 93295

== ENCOUNTER → 2025-02-16 23:59 | Outpatient (BNV) | payer MEDICARE, SELFPAY ==
--- NOTE | 2025-02-18 13:01 | MHC.OFFVIS ---
Intake Visit Reasons: REmote HF monitoring-[employer] Allergies ibuprofen [From Motrin] Adverse Reaction (Mild, Verified 05/13/24 11:47) NAUSEA & VOMITING PCN Allergy (Unknown, Uncoded 05/13/24 11:47) unknown reaction PFSH Medical History Nicotine dependence, cigarettes, uncomplicated Biventricular implantable cardioverter-defibrillator (ICD) in situ Nonischemic cardiomyopathy Heart failure with reduced ejection fraction HLD (hyperlipidemia) HTN (hypertension) Diabetes Hypothyroid CONCEPCION (obstructive sleep apnea) Tubular adenoma of colon Nephrolithiasis Surgical History S/P cardiac cath History of tonsillectomy History of lithotripsy History of colonoscopy Family History Father Lung cancer Mother Hx of CABG Social History Patient Tobacco Use Status: Former Tobacco user Office Procedures Cardiac Device Check Cardiac Device Check Details: Remote heart failure report generated 02/16/2025. Heart failure parameters are stable [id number] Cardiac Device Interrogation, cardio physiologic monitor Procedure code (CPT) selection complete Assessment & Plan Assessment & Plan (1) Biventricular implantable cardioverter-defibrillator (ICD) in situ: Comment: [employer], 06/18/2024 Code(s): Z95.810 - Presence of automatic (implantable) cardiac defibrillator Category: Medical Plan: See above Coding Level of Care Code Procedure Only Diagnoses Biventricular implantable cardioverter-defibrillator (ICD) in situ Z95.810 CPT Codes Cardiac Device Check - Cardiac Device 15: 72037-Xokpyv Cardiac Device Interrogation, cardio physiologic monitor ([id number])
== END ==
PROVIDERS: PCP Internal Medicine; Visit Provider Internal Medicine Cardiovascular Disease
DX: Z45.02 Encounter for adjustment and management of automatic implantable cardiac defibrillator (principal)
CPT/HCPCS: 93297

== ENCOUNTER 2025-03-19 15:31 | Outpatient (AMB) | payer MEDICARE, SELFPAY ==
--- NOTE | 2025-03-19 15:42 | MHC.PC.OV ---
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 Required: No Accompanied by: Self / Same As Patient Allergies ibuprofen [From Motrin] Adverse Reaction (Mild, Verified 03/19/25 15:43) NAUSEA & VOMITING PCN Allergy (Unknown, Uncoded 03/19/25 15:43) unknown reaction Medication List - Last Reconciled 03/19/25 by Lashae Fields MD atorvastatin 40 mg PO BEDTIME blood-glucose,meat cutter,cont ([employer] Fox 3 [place]) As directed carvedilol 6.25 mg PO BID dulaglutide (Trulicity) 1.5 mg (0.5 mL) subcut QWEEK furosemide 20 mg PO DAILY glipizide 10 mg (2 x 5 mg) PO BID 90 days insulin glargine (Lantus U-100 Insulin) 10 units subcut QPM levothyroxine 200 mcg PO DAILY metformin 500 mg PO BID sacubitril-valsartan 49-51 mg (Entresto) 1 tab PO BID Tobacco use date assessed: 03/19/25 Fall risk assessment: No Falls in past year Last assessed Fall Risk: 03/19/25 Dental Screening Dental Screen Date: 03/19/25 Did you have a dental visit in the last 12 months?: Yes Did you have a dental problem in the last 6 months where you did not have access to dental care?: No Was dental information given to patient?: Patient has dentist HPI HPI Comments History of Present Illness Details The patient is a 69 year old male with a past medical history of NICM s/p bivAICD, htn, hld, diabetes, hypothyroid, CONCEPCION, nephrolithiasis presenting for follow up CV: Follows with cardiology Dr Mirza. Upcoming appt in April. On entresto. Endo: DM-Last A1C 8.0 10/2024. On trulicity 0.75mg, lantus 10mg daily, metformin 500mg twice daily, glipizide 10mg twice daily. On fox [address]GM[address] Fletcher. Hypothyroid-On levothyroxine 200mcg daily. Last TSH slightly elevated Colonoscopy 2022-7 year repeat ROS CONSTITUTIONAL: Denies weight loss, fever and chills. HEENT: Denies changes in vision and hearing. RESPIRATORY: Denies SOB and cough. CV: Denies palpitations and CP GI: Denies abdominal pain, nausea, vomiting and diarrhea. : Denies dysuria and urinary frequency. MSK: Denies new myalgia and joint pain. SKIN: Denies rash and pruritus. NEUROLOGICAL: Denies headache PSYCHIATRIC: Denies recent changes in mood. PHYSICAL EXAM: GENERAL: Alert and oriented x 3. NAD EYES: EOMI. Anicteric. HENT: Moist mucous membranes. No scleral icterus. No cervical lymphadenopathy. LUNGS: Clear to auscultation bilaterally. CARDIOVASCULAR: Regular rate and rhythm. No murmur. No JVD. ABDOMEN: Soft, non-tender +bs EXTREMITIES: No edema. Non-tender. SKIN: No rashes or lesions. Warm. NEUROLOGIC: No focal neurological deficits. CN II-XII grossly intact PSYCHIATRIC: Cooperative. Appropriate mood and affect [facility] Medical History Nicotine dependence, cigarettes, uncomplicated Biventricular implantable cardioverter-defibrillator (ICD) in situ Nonischemic cardiomyopathy Heart failure with reduced ejection fraction HLD (hyperlipidemia) HTN (hypertension) Diabetes Hypothyroid CONCEPCION (obstructive sleep apnea) Tubular adenoma of colon Nephrolithiasis Surgical History S/P cardiac cath History of tonsillectomy History of lithotripsy History of colonoscopy (~04/10/23) Family History Father Lung cancer Mother Hx of CABG Social History Housing: Condominium Alcohol intake: current Alcohol intake frequency: holidays/special occasions only Patient Tobacco Use Status: Former Tobacco user service: No Current occupational status: employed and retired 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 1. Little interest or pleasure in doing things: not at all 2. Feeling down, depressed, or hopeless: not at all 3. Trouble falling or staying asleep, or sleeping too much: not at all 4. Feeling tired or having little energy: not at all 5. Poor appetite or overeating: not at all 6. Feeling bad about yourself - or that you are a failure or have let yourself or your family down: not at all 7. Trouble concentrating on things, such as reading the newspaper or watching television: not at all 8. Moving or speaking so slowly that other people could have noticed. Or the opposite - being so fidgety or restless that you have been moving around a lot more than usual: not at all 9. Thoughts that you would be better off or of hurting yourself in some way: not at all Total score: 0 Depression Screening Interpretation: Negative Depression Screening Done: Yes 78557 - PHQ-9 Billing: Yes Source: Developed by Drs. Julio Bhatia, Marisol Whitley, Mark Anthony Jose and colleagues, with an educational live from [employer]. Thrive Questionnaire Date Thrive assessed: 03/19/25 I am a: Patient What is your living situation today?: I have a steady place to live Within the past 12 months, did the food you bought not last and you didn't have the money to get more?: Never true Within the past 12 months, did you worry whether your food would run out before you got money to buy more?: Never true Do you have trouble paying for medicines?: No Do you have trouble getting transportation to medical appointments?: No Do you have trouble paying your heating and electricity bill?: No Do you have trouble taking care of your child, family member or friend?: No Do you have trouble with day-to-day activities such as bathing, preparing meals, shopping, managing finances, etc.?: No Are you currently unemployed and looking for a job?: No Are you interested in more education?: No Please select the resources that you would like help with: None THRIVE Score: 0 AUDIT C Alcohol Use Questionnaire (AUDIT-C) 1. How often do you have a drink containing alcohol?: Monthly or less 2. How many drinks containing alcohol do you have on a typical day when you are drinking?: 1 or 2 3. How often do you have six or more drinks on one occasion?: Never Total Score: 1 RITA-7 AMB Questionnaire RITA-7 Date RITA - 7 assessed: 03/19/25 Feeling nervous, anxious, or on edge: 0 = Not at all Not being able to stop or control worryin = Not at all Worrying too much about different things: 0 = Not at all Trouble relaxin = Not at all Being so restless that it is hard to sit still: 0 = Not at all Becoming easily annoyed or irritable: 0 = Not at all Feeling afraid as if something awful might happen: 0 = Not at all Total RITA-7 score (0-4 normal; 5-9 mild; 10-14 moderate; 15-21 severe): 0 Source: Developed by Drs. Julio Bhatia, Marisol Whitley, Mark Anthony Jose and colleagues, with an educational live from [employer]. Physical exam (Primary Care) Vital Signs: Last Vital Signs Temp 97.8 F 03/19/25 15:43 Pulse 82 03/19/25 15:43 Resp 14 03/19/25 15:43 BP 160/90 H 03/19/25 15:43 Pulse Ox 98 03/19/25 15:43 Oxygen Delivery Method Room Air 03/19/25 15:43 BMI result Body Mass Index 40.0 Tobacco/Smoking Status: Tobacco use Status Tobacco use date assessed 03/19/25 03/19/25 15:50 Patient Tobacco Use Status Former Tobacco user 03/19/25 15:50 PHQ-9: PHQ-9 Score PHQ-9: Total score 0 03/19/25 15:50 Depression Screening Interpretation: Negative Thrive Assessment: Date of Thrive Assessment Date Thrive assessed 03/19/25 03/19/25 15:50 Coding Level of Care Code New Pt Level 4 (23412) Complex EM visit Add On G2211 Diagnoses Type 2 diabetes mellitus with hyperglycemia, with long-term current use of insulin E11.65; Z79.4 Diabetes mellitus type: type 2 Diabetes mellitus exterminator insulin use: with half-way use Diabetes mellitus complication status: with hyperglycemia Hypothyroidism, unspecified type E03.9 Hypothyroidism type: unspecified Nonischemic cardiomyopathy I42.8 Additional Codes PHQ-9 - 38209 - PHQ-9 Billing: Yes ([id number]) Assessment & Plan Assessment & Plan (1) Diabetes: Code(s): E11.9 - Type 2 diabetes mellitus without complications Category: Medical Qualifiers: Diabetes mellitus type: type 2 Diabetes mellitus exterminator insulin use: with exterminator use Diabetes mellitus complication status: with hyperglycemia Qualified Code(s): E11.65 - Type 2 diabetes mellitus with hyperglycemia; Z79.4 - termite control technician (current) use of insulin (2) Hypothyroid: Code(s): E03.9 - Hypothyroidism, unspecified Category: Medical Qualifiers: Hypothyroidism type: unspecified Qualified Code(s): E03.9 - Hypothyroidism, unspecified (3) Nonischemic cardiomyopathy: Code(s): I42.8 - Other cardiomyopathies Category: Medical Plan 69 year old male to establish care past medical, surgical, social and family history reviewed DM-slight hyperglycemia, increase trulicity to 1.5mg weekly Hypothyroid-check TSH Return in 3 months or sooner as needed Orders: Orders TSH reflex Free T4 3 Months E11.9 - Type 2 diabetes mellitus without complications, I42.8 - Other cardiomyopathies Comprehensive Met. Panel 3 Months E11.9 - Type 2 diabetes mellitus without complications, E78.5 - Hyperlipidemia, unspecified, I10 - Essential (primary) hypertension Hemoglobin A1c 3 Months E11.9 - Type 2 diabetes mellitus without complications, I42.8 - Other cardiomyopathies Medications: New dulaglutide (Trulicity) 1.5 mg (0.5 mL) subcut QWEEK 6 mL 3RF E11.9 - Type 2 diabetes mellitus without complications Changed From glipizide 5 mg PO BID To glipizide 10 mg (2 x 5 mg) PO BID 90 days 360 tabs 3RF
[2025-03-19 15:43] VITALS: BP 160/90; PULSE 82; RESP 14; TEMP 36.6; O2SAT 98; BMI 40.0
== END 2025-03-19 16:16 | disposition home or self-care (01) ==
LOC: HO.HMCHD 15:31
PROVIDERS: PCP Internal Medicine; Visit Provider Internal Medicine
DX: E11.65 Type 2 diabetes mellitus with hyperglycemia (principal); Z79.4 Long term (current) use of insulin; E03.9 Hypothyroidism, unspecified; I42.8 Other cardiomyopathies

== ENCOUNTER → 2025-03-19 15:31 | Outpatient (BNVA) | payer MEDICARE, SELFPAY | PROVIDERS: PCP Internal Medicine; Visit Provider Internal Medicine | DX: E11.65 Type 2 diabetes mellitus with hyperglycemia (principal); E03.9 Hypothyroidism, unspecified; I42.8 Other cardiomyopathies; I10 Essential (primary) hypertension; Z79.4 Long term (current) use of insulin; Z79.84 Long term (current) use of oral hypoglycemic drugs; Z79.899 Other long term (current) drug therapy | CPT/HCPCS: 96127; 99202 ==

== ENCOUNTER → 2025-03-19 23:59 | Outpatient (BNV) | payer MEDICARE, SELFPAY ==
--- NOTE | 2025-03-24 13:10 | MHC.OFFVIS ---
Intake Visit Reasons: REmote HF monitoring-[employer] Allergies ibuprofen [From Motrin] Adverse Reaction (Mild, Verified 03/19/25 15:43) NAUSEA & VOMITING PCN Allergy (Unknown, Uncoded 03/19/25 15:43) unknown reaction PFSH Medical History Nicotine dependence, cigarettes, uncomplicated Biventricular implantable cardioverter-defibrillator (ICD) in situ Nonischemic cardiomyopathy Heart failure with reduced ejection fraction HLD (hyperlipidemia) HTN (hypertension) Diabetes Hypothyroid CONCEPCION (obstructive sleep apnea) Tubular adenoma of colon Nephrolithiasis Surgical History S/P cardiac cath History of tonsillectomy History of lithotripsy History of colonoscopy (~04/10/23) Family History Father Lung cancer Mother Hx of CABG Social History Housing: Condominium Alcohol intake: current Alcohol intake frequency: holidays/special occasions only Patient Tobacco Use Status: Former Tobacco user service: No Current occupational status: employed and retired 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 Heart failure parameters are stable [id number] Device Interrogation, subcut cardiac rhythm monitor Procedure code (CPT) selection complete Assessment & Plan Assessment & Plan (1) Biventricular implantable cardioverter-defibrillator (ICD) in situ: Comment: [employer], 06/18/2024 Code(s): Z95.810 - Presence of automatic (implantable) cardiac defibrillator Category: Medical Plan: See above Coding Level of Care Code Procedure Only Diagnoses Biventricular implantable cardioverter-defibrillator (ICD) in situ Z95.810 CPT Codes Cardiac Device Check - Cardiac Device 11: 73096-[id number] Device Interrogation, subcut cardiac rhythm monitor ([id number])
== END ==
PROVIDERS: PCP Internal Medicine; Visit Provider Internal Medicine Cardiovascular Disease
DX: Z45.02 Encounter for adjustment and management of automatic implantable cardiac defibrillator (principal)
CPT/HCPCS: 93297

== ENCOUNTER → 2025-04-19 23:59 | Outpatient (BNV) | payer MEDICARE, SELFPAY ==
--- NOTE | 2025-04-27 11:31 | A.OFFVIS_ITS ---
Intake Visit Reasons: Remote HF Monitoring- [employer] Allergies ibuprofen [From Motrin] Adverse Reaction (Mild, Verified 03/19/25 15:43) NAUSEA & VOMITING PCN Allergy (Unknown, Uncoded 03/19/25 15:43) unknown reaction PFSH Medical History Nicotine dependence, cigarettes, uncomplicated Biventricular implantable cardioverter-defibrillator (ICD) in situ Nonischemic cardiomyopathy Heart failure with reduced ejection fraction HLD (hyperlipidemia) HTN (hypertension) Diabetes Hypothyroid CONCEPCION (obstructive sleep apnea) Tubular adenoma of colon Nephrolithiasis Surgical History S/P cardiac cath History of tonsillectomy History of lithotripsy History of colonoscopy (~04/10/23) Family History Father Lung cancer Mother Hx of CABG Social History Housing: Condominium Alcohol intake: current Alcohol intake frequency: holidays/special occasions only Patient Tobacco Use Status: Former Tobacco user service: No Current occupational status: employed and retired 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 Heart failure parameters are stable [id number] Cardiac Device Interrogation, cardio physiologic monitor Procedure code (CPT) selection complete Assessment & Plan Assessment & Plan (1) Biventricular implantable cardioverter-defibrillator (ICD) in situ: Comment: [employer], 06/18/2024 Code(s): Z95.810 - Presence of automatic (implantable) cardiac defibrillator Category: Medical Plan: See above Coding Level of Care Code Procedure Only Diagnoses Biventricular implantable cardioverter-defibrillator (ICD) in situ Z95.810 CPT Codes Cardiac Device Check - Cardiac Device 15: [id number] Cardiac Device Interrogation, cardio physiologic monitor ([id number])
== END ==
PROVIDERS: PCP Internal Medicine; Visit Provider Internal Medicine Cardiovascular Disease
DX: I50.9 Heart failure, unspecified (principal); Z95.810 Presence of automatic (implantable) cardiac defibrillator
CPT/HCPCS: 93297

== ENCOUNTER → 2025-04-19 23:59 | Outpatient (BNV) | payer MEDICARE, SELFPAY ==
--- NOTE | 2025-04-29 16:49 | MHC.OFFVIS ---
Intake Visit Reasons: Remote HF Monitoring- Medtronic Allergies ibuprofen [From Motrin] Adverse Reaction (Mild, Verified 03/19/25 15:43) NAUSEA & VOMITING PCN Allergy (Unknown, Uncoded 03/19/25 15:43) unknown reaction PFSH Medical History Nicotine dependence, cigarettes, uncomplicated Biventricular implantable cardioverter-defibrillator (ICD) in situ Nonischemic cardiomyopathy Heart failure with reduced ejection fraction HLD (hyperlipidemia) HTN (hypertension) Diabetes Hypothyroid CONCEPCION (obstructive sleep apnea) Tubular adenoma of colon Nephrolithiasis Surgical History S/P cardiac cath History of tonsillectomy History of lithotripsy History of colonoscopy (~04/10/23) Family History Father Lung cancer Mother Hx of CABG [facility] Alcohol intake: current Alcohol intake frequency: holidays/special occasions only Patient Tobacco Use Status: Former Tobacco user service: No Current occupational status: employed and retired 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 I was requested to read this study today. Heart failure parameters are within normal limits [id number] Cardiac Device Interrogation, cardio physiologic monitor Procedure code (CPT) selection complete Assessment & Plan Assessment & Plan (1) Biventricular implantable cardioverter-defibrillator (ICD) in situ: Comment: Medtronic, 06/18/2024 Code(s): Z95.810 - Presence of automatic (implantable) cardiac defibrillator Category: Medical Plan: See above Coding Level of Care Code Procedure Only Diagnoses Biventricular implantable cardioverter-defibrillator (ICD) in situ Z95.810 CPT Codes Cardiac Device Check - Cardiac Device 15: [id number] Cardiac Device Interrogation, cardio physiologic monitor ([id number])
== END ==
PROVIDERS: PCP Internal Medicine; Visit Provider Internal Medicine Cardiovascular Disease
DX: I50.9 Heart failure, unspecified (principal); Z95.810 Presence of automatic (implantable) cardiac defibrillator
CPT/HCPCS: 93297

== ENCOUNTER 2025-04-27 12:51 | Outpatient (AMB) | payer MEDICARE, SELFPAY ==
[2025-04-27 13:09] VITALS: BP 120/80; PULSE 80; BMI 39.3
--- NOTE | 2025-04-27 13:09 | A.OFFVIS_ITS ---
Vital Signs 04/27/25 13:09 Height 6 ft Weight 289 lb 10.998 oz BMI 39.3 BP 120/80 Blood Pressure Location Lt brachial Position Sitting Pulse 80 Intake Visit Reasons: 6 mth f/up /[employer] Intake Note: 6 month follow-up with [employer] c/o leg pain had similar issue in the past with lipitor Soils Engineer Required: No Allergies ibuprofen [From Motrin] Adverse Reaction (Mild, Verified 03/19/25 15:43) NAUSEA & VOMITING PCN Allergy (Unknown, Uncoded 03/19/25 15:43) unknown reaction Medication List - Last Reconciled 04/27/25 by Yovany Mirza MD atorvastatin 40 mg PO BEDTIME blood-glucose,adoption agent,cont ([employer] Fox 3 [place]) As directed carvedilol 6.25 mg PO BID dulaglutide (Trulicity) 1.5 mg (0.5 mL) subcut QWEEK furosemide 20 mg PO DAILY glipizide 10 mg (2 x 5 mg) PO BID 90 days insulin glargine (Lantus U-100 Insulin) 10 units subcut QPM levothyroxine 200 mcg PO DAILY metformin 500 mg PO BID sacubitril-valsartan 49-51 mg (Entresto) 1 tab PO BID HPI Comments Details: Eze comes for follow-up. No ICD discharge. No prolonged palpitation irregular heartbeat. No syncopal episodes. Denies any heart failure symptoms of orthopnea, PND, leg edema. He says when he gets up suddenly does get a little lightheaded. He is also complaining of weakness in both his time muscles and thinks that this might be related to statin therapy had he had similar symptoms in the past on Lipitor. [facility] Medical History Nicotine dependence, cigarettes, uncomplicated Biventricular implantable cardioverter-defibrillator (ICD) in situ Nonischemic cardiomyopathy Heart failure with reduced ejection fraction HLD (hyperlipidemia) HTN (hypertension) Diabetes Hypothyroid CONCEPCION (obstructive sleep apnea) Tubular adenoma of colon Nephrolithiasis Surgical History S/P cardiac cath History of tonsillectomy History of lithotripsy History of colonoscopy (~04/10/23) Family History Father Lung cancer Mother Hx of CABG Social History Housing: Condominium Alcohol intake: current Alcohol intake frequency: holidays/special occasions only Patient Tobacco Use Status: Former Tobacco user service: No Current occupational status: employed and retired 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 Cognitive needs: No Hearing needs: No Vision needs: Yes (rx glasses) Review of Systems Const Denies chills, Denies fatigue, Denies fever(s), Denies frequent falls, Denies weakness, Denies weight gain and Denies weight loss ENT Denies dizziness Card Denies chest pain, Denies leg edema, Denies lightheadedness, Denies palpitations, Denies dyspnea, Denies dyspnea on exertion, Denies orthopnea and Denies other (loss of consciousness) Resp Denies cough, Denies dyspnea and Denies dyspnea on exertion GI Denies hematochezia and Denies change in stool character Musc Denies abnormal gait, Denies muscle weakness, Denies numbness, Denies radiating pain into limb and Denies tingling Neuro Denies abnormal gait, Denies dizziness, Denies frequent falls, Denies numbness, Denies tingling and Denies weakness Endo Denies fatigue and Denies palpitations Physical Exam Vital Signs: Last Vital Signs Pulse 80 04/27/25 13:09 BP 120/80 04/27/25 13:09 BMI result Body Mass Index 39.3 Const General: cooperative, healthy appearing, comfortable and no acute distress Orientation/consciousness: patient oriented x3 Neck Neck: Yes normal visual inspection and Yes no JVD Resp Effort & Inspection: normal respiratory effort Auscultation: clear to auscultation bilaterally, no crackles, no rales, no rhonchi and no wheezes Cardio Jugular venous distension: no JVD Rate: regular rate Rhythm: regular rhythm Heart sounds: S1 normal heart sound present, S2 normal heart sound present, no murmurs and no rubs Neuro General: patient oriented x3 Extrem General: Yes normal to inspection, No no pedal edema and No calf tenderness Psych Appearance: grossly normal Mental Status: mental status grossly normal Speech and movement: Normal speech and movement present Office Procedures Cardiac Device Check Cardiac Device Check Details: Biventricular [employer]tr[employer] ICD in place. Programmed in DDD at 60 beats per minute. Battery life is excellent at 11 years. Biventricular pacing 97.1% of time. No arrhythmias noted. Atrial ventricular sensing is excellent. Atrial and biventricular pacing thresholds excellent. Pacing and shock lead impedance is stable. 34195-[id number] Cardiac Device Check, multi lead implantable defibrillator Procedure code (CPT) selection complete EKG Details: EKG shows atrially sensed ventricularly paced rhythm with LV pacing [id number], Complete Assessment & Plan Assessment & Plan (1) Heart failure with reduced ejection fraction: Code(s): I50.20 - Unspecified systolic (congestive) heart failure Category: Medical Plan: Heart failure with reduced ejection fraction, clinically euvolemic and well compensated. Doing very well from that perspective. Advised to reduce Lasix to 20 mg 3 times a week. Daily weight monitoring avoidance salt loading was discussed. Additional diuretics as need be. Will continue maximize neurohormonal modulation. Will start with carvedilol to 12.5 mg b.i.d.. Continue Entresto. Follow-up blood pressure check in 1 month's time. Blood pressure is stable will maximize Entresto therapy. Follow-up echocardiogram 6 months time. Will follow up for heart failure worsening on device checks. (2) Biventricular implantable cardioverter-defibrillator (ICD) in situ: Comment: [employer], 06/18/2024 Code(s): Z95.810 - Presence of automatic (implantable) cardiac defibrillator Category: Medical Plan: Biventricular ICD in place, working well. Reprogrammed for adequate functioning. Will follow remotely. Follow up in the clinic in 6 months time. (3) CAD (coronary artery disease): Code(s): I25.10 - Atherosclerotic heart disease of [place] coronary artery without angina pectoris Category: Medical Plan: CAD nonobstructive but with multiple risk factors. Continue low-dose aspirin therapy. Currently having some statin side effects with muscle weakness. Will give him a statin holiday to see if his muscle symptoms improve. If they do improve then will switch him to either an alternative agent at a lower dose in combination with ezetimibe therapy. Target goal LDL less than 70 mg/dL. Continue aggressive diabetes management goal hemoglobin A1c less than 7%. Blood pressure is well optimized. Follow up in the clinic in 6 months time, sooner p.r.n.. Thank you for allowing me to partake in his care Orders: Orders CA echo transthoracic complete 5 Months I50.20 - Unspecified systolic (congestive) heart failure Medications: New carvedilol (Coreg) must administer with a meal/food 12.5 mg PO BID 180 tabs 1RF Changed From furosemide 20 mg PO DAILY 90 tabs 1RF To furosemide 20 mg PO .three times a week 90 tabs 1RF On Hold atorvastatin Hold Comment: Doctor's Order 40 mg PO BEDTIME 90 tabs 3RF Coding Level of Care Code Est Pt Level 4 (59549) Complex EM visit Add On G2211 Diagnoses Heart failure with reduced ejection fraction I50.20 Biventricular implantable cardioverter-defibrillator (ICD) in situ Z95.810 CAD (coronary artery disease) I25.10 CPT Codes Cardiac Device Check - Cardiac Device 6: 73626-HE Cardiac Device Check, multi lead implantable defibrillator ([id number]) EKG - CPT: 12317-Twqaekwzizcktbfhu, Complete ([id number])
--- OUTSIDE RECORDS SUMMARY | 2025-04-27 14:28 | XMS_ITS | Patient Health Record ---
Author Organization [facility] Address [address] [place] [address] Care Team Providers Care Cath Lab Radiology Technician Name Role Phone Yared Chavarria MD Primary Care Provider Dat Callaway Jr Unavailable [phone] Allergies Allergen (clinical drug ingredient) Drug/Non Drug Allergy documented on EMR Reaction Allergy Type Onset Date Status Penicillin Unknown Drug Allergy Active Reason For Referral No Information Medications Medication SIG (Take, Route, Frequency, Duration) Notes [...] HCl 500 MG Oral for 90 Active Immunizations Vaccine Route Administration Date Status Comme nts Influenza Unknown 09/05/2022 Administered Social History Tobacco Use: Social History Observation Description Date Details (start date - stop date) Never Smoker NA - NA Tobacco Use/Smoking Question Answer Notes Patient is [...] Never (0 point) Points 2 Interpretation Negative Problems Problem Type SNOMED Code ICD Code Onset Dates Problem Status W/U Status Risk Notes Problem [id number] Colon cancer screening (Z12.11) Active confirmed Problem [id number] retirement (current) use of oral hypoglycemic drugs (Z79.84) Active confirmed Plan Of Treatment Future Test Test Name Order Date COLONOSCOPY 03/12/2023 Insurance Providers Payer Name Payer Address Payer Phone Subscriber Number Group Number Insured Name Patient Relationship to Insured Coverage Start Date Coverage End Date MEDICARE OF [place] [address] [place] [address] [id number] ROGER GAVIN Self - patient is the insured [employer] ATT[employer] CLAIMS [address] [place] [address] [id number] ROGER GAVIN Self - patient is the insured Medical (General) History Medical History History ICD Code Diabetes mellitus type 2 Hypertension Elevated cholesterol Hypothyroid Obstructive sleep apnea/CPAP Nephrolithiasis Surgical History Surgery Date(Month/Year) Hospitalization History Reason Date(Month/Year) kidney stones 03/30
== END 2025-04-27 13:47 | disposition home or self-care (01) ==
LOC: HO.HCS 12:51
PROVIDERS: PCP Internal Medicine; Visit Provider Internal Medicine Cardiovascular Disease
DX: I50.20 Unspecified systolic (congestive) heart failure (principal); Z95.810 Presence of automatic (implantable) cardiac defibrillator; I25.10 Atherosclerotic heart disease of native coronary artery without angina pectoris
CPT/HCPCS: 93010; 93284; 99214; G2211

== ENCOUNTER → 2025-04-27 12:51 | Outpatient (BNVA) | payer MEDICARE, SELFPAY | PROVIDERS: PCP Internal Medicine; Visit Provider Internal Medicine Cardiovascular Disease | DX: Z45.02 Encounter for adjustment and management of automatic implantable cardiac defibrillator (principal); I25.10 Atherosclerotic heart disease of native coronary artery without angina pectoris; I50.20 Unspecified systolic (congestive) heart failure; I45.10 Unspecified right bundle-branch block | CPT/HCPCS: 93005; 99212 ==

== ENCOUNTER → 2025-05-20 23:59 | Outpatient (BNV) | payer MEDICARE, SELFPAY ==
--- NOTE | 2025-05-26 13:11 | MHC.OFFVIS ---
Intake Visit Reasons: Remote HF Monitoring- Medtronic Allergies ibuprofen (From Motrin) Adverse Reaction (Mild, Verified 03/19/25 15:43) NAUSEA & VOMITING PCN Allergy (Unknown, Uncoded 03/19/25 15:43) unknown reaction PFSH Medical History Nicotine dependence, cigarettes, uncomplicated Biventricular implantable cardioverter-defibrillator (ICD) in situ Nonischemic cardiomyopathy Heart failure with reduced ejection fraction HLD (hyperlipidemia) HTN (hypertension) Diabetes Hypothyroid CONCEPCION (obstructive sleep apnea) Tubular adenoma of colon Nephrolithiasis Surgical History S/P cardiac cath History of tonsillectomy History of lithotripsy History of colonoscopy (~04/10/23) Family History Father Lung cancer Mother Hx of CABG [facility] Alcohol intake: current Alcohol intake frequency: holidays/special occasions only Patient Tobacco Use Status: Former Tobacco user service: No Current occupational status: employed and retired 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 Heart failure parameters are within normal limits [id number] Cardiac Device Interrogation, cardio physiologic monitor Procedure code (CPT) selection complete Assessment & Plan Assessment & Plan (1) Biventricular implantable cardioverter-defibrillator (ICD) in situ: Comment: Medtronic, 06/18/2024 Code(s): Z95.810 - Presence of automatic (implantable) cardiac defibrillator Category: Medical Plan: See above Coding Level of Care Code Procedure Only Diagnoses Biventricular implantable cardioverter-defibrillator (ICD) in situ Z95.810 CPT Codes Cardiac Device Check - Cardiac Device 15: [id number] Cardiac Device Interrogation, cardio physiologic monitor ([id number])
== END ==
PROVIDERS: PCP Internal Medicine; Visit Provider Internal Medicine Cardiovascular Disease
DX: Z45.02 Encounter for adjustment and management of automatic implantable cardiac defibrillator (principal)
CPT/HCPCS: 93297

== ENCOUNTER → 2025-05-20 23:59 | Outpatient (BNV) | payer MEDICARE, SELFPAY ==
--- NOTE | 2025-05-26 13:13 | A.OFFVIS_ITS ---
Intake Visit Reasons: REmote device check- Medtronic Allergies ibuprofen (From Motrin) Adverse Reaction (Mild, Verified 03/19/25 15:43) NAUSEA & VOMITING PCN Allergy (Unknown, Uncoded 03/19/25 15:43) unknown reaction PFSH Medical History Nicotine dependence, cigarettes, uncomplicated Biventricular implantable cardioverter-defibrillator (ICD) in situ Nonischemic cardiomyopathy Heart failure with reduced ejection fraction HLD (hyperlipidemia) HTN (hypertension) Diabetes Hypothyroid CONCEPCION (obstructive sleep apnea) Tubular adenoma of colon Nephrolithiasis Surgical History S/P cardiac cath History of tonsillectomy History of lithotripsy History of colonoscopy (~04/10/23) Family History Father Lung cancer Mother Hx of CABG 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 ICD function is adequate [id number] Cardiac Interrogation, implant defibrillator w/interim Procedure code (CPT) selection complete Assessment & Plan Assessment & Plan (1) Biventricular implantable cardioverter-defibrillator (ICD) in situ: Comment: Medtronic, 06/18/2024 Code(s): Z95.810 - Presence of automatic (implantable) cardiac defibrillator Category: Medical Plan: See above Coding Level of Care Code Procedure Only Diagnoses Biventricular implantable cardioverter-defibrillator (ICD) in situ Z95.810 CPT Codes Cardiac Device Check - Cardiac Device 13: [id number] Cardiac Interrogation, implant defibrillator w/interim ([id number])
== END ==
PROVIDERS: PCP Internal Medicine; Visit Provider Internal Medicine Cardiovascular Disease
DX: Z45.02 Encounter for adjustment and management of automatic implantable cardiac defibrillator (principal)
CPT/HCPCS: 93295

== ENCOUNTER → 2025-06-20 23:59 | Outpatient (BNV) | payer MEDICARE, SELFPAY ==
--- NOTE | 2025-06-30 09:27 | A.OFFVIS_ITS ---
Intake Visit Reasons: Remote HF Monitoring- Medtronic Allergies ibuprofen (From Motrin) Adverse Reaction (Mild, Verified 03/19/25 15:43) NAUSEA & VOMITING PCN Allergy (Unknown, Uncoded 03/19/25 15:43) unknown reaction PFSH Medical History Nicotine dependence, cigarettes, uncomplicated Biventricular implantable cardioverter-defibrillator (ICD) in situ Nonischemic cardiomyopathy Heart failure with reduced ejection fraction HLD (hyperlipidemia) HTN (hypertension) Diabetes Hypothyroid CONCEPCION (obstructive sleep apnea) Tubular adenoma of colon Nephrolithiasis Surgical History S/P cardiac cath History of tonsillectomy History of lithotripsy History of colonoscopy (~04/10/23) Family History Father Lung cancer Mother Hx of CABG [facility] Alcohol intake: current Alcohol intake frequency: holidays/special occasions only Patient Tobacco Use Status: Former Tobacco user service: No Current occupational status: employed and retired 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 Heart failure parameters are within normal limits. [id number] Cardiac Device Interrogation, cardio physiologic monitor Procedure code (CPT) selection complete Assessment & Plan Assessment & Plan (1) Biventricular implantable cardioverter-defibrillator (ICD) in situ: Comment: Medtronic, 06/18/2024 Code(s): Z95.810 - Presence of automatic (implantable) cardiac defibrillator Category: Medical Plan: See above Coding Level of Care Code Procedure Only Diagnoses Biventricular implantable cardioverter-defibrillator (ICD) in situ Z95.810 CPT Codes Cardiac Device Check - Cardiac Device 15: [id number] Cardiac Device Interrogation, cardio physiologic monitor ([id number])
== END ==
PROVIDERS: PCP Physician Assistant; Visit Provider Internal Medicine Cardiovascular Disease
DX: I50.9 Heart failure, unspecified (principal); Z95.810 Presence of automatic (implantable) cardiac defibrillator
CPT/HCPCS: 93297

== ENCOUNTER 2025-07-13 14:02 | Outpatient (REF) | payer MEDICARE, SELFPAY ==
--- OUTSIDE RECORDS SUMMARY | 2025-07-13 15:26 | XMS_ITS | Patient Health Record ---
Author Organization [facility] Address [address] [place] [address] Care Team Providers Care Boom Stick Man Name Role Phone Deon (RETIRED) Yared ROPER Primary Care Provide Dat Desouza Jr Unavailable [phone] Allergies Allergen (clinical drug ingredient) Drug/Non Drug [...] Problem Status W/U Status Risk Notes Problem [id number] Colon cancer screening (Z12.11) Active confirmed Problem [id number] USP (current) use of oral hypoglycemic drugs (Z79.84) Active confirmed Plan Of Treatment Future Test Test Name Order Date COLONOSCOPY 03/12/2023 Insurance Providers Payer Name Payer Address Payer Phone Subscriber Number Group Number Insured Name Patient Relationship to Insured Coverage Start Date Coverage End Date MEDICARE OF [place] [address] [facility] [place] [address] [id number] ROGER GAVIN Self - patient is the insured MED[employer] ATTN CLAIMS [address] [place] [address] [id number] ROGER GAVIN Self - patient is the insured Medical (General) History Medical History History ICD Code Diabetes mellitus type 2 Hypertension Elevated cholesterol Hypothyroid Obstructive sleep apnea/CPAP Nephrolithiasis Surgical History Surgery Date(Month/Year) Hospitalization History Reason Date(Month/Year) kidney stones 03/30
[2025-07-13 16:24] LABS: Hemoglobin A1C 210.0687 umol/L; Total Hemoglobin (HGBA1C) 4110.5401 umol/L
[2025-07-13 16:45] LABS: Alanine Aminotransferase 26 U/L (0-40); Albumin Level 4.3 g/dL (3.5-5.0); Alkaline Phosphatase 72 U/L (39-117); Anion Gap 14 (12-20); Aspartate Amino Transferase 23 U/L (5-37); Blood Urea Nitrogen 19 mg/dL (9-16); Calcium 9.4 mg/dL (8.4-10.2); Carbon Dioxide 25 mmol/L (22-29); Chloride 107 mmol/L (96-108); Estimated Glomerular Filt Rate > 60; Potassium 3.9 mmol/L (3.3-5.1); Sodium 142 mmol/L (135-145); Total Protein 6.9 g/dL (6.5-8.0)
== END 2025-07-13 14:03 | disposition home or self-care (01) ==
LOC: HO.HMGCLDS 14:02
PROVIDERS: Visit Provider Internal Medicine
DX: E11.9 Type 2 diabetes mellitus without complications (principal); I42.8 Other cardiomyopathies; I10 Essential (primary) hypertension; E78.5 Hyperlipidemia, unspecified
CPT/HCPCS: 36415; 80053; 83036; 84443

== ENCOUNTER → 2025-07-17 10:02 | Outpatient (BNVA) | payer MEDICARE, SELFPAY | PROVIDERS: PCP Physician Assistant; Visit Provider Student in an Organized Health Care Education/Training Program | DX: I11.0 Hypertensive heart disease with heart failure (principal); I50.20 Unspecified systolic (congestive) heart failure; I25.10 Atherosclerotic heart disease of native coronary artery without angina pectoris; E78.5 Hyperlipidemia, unspecified; E11.65 Type 2 diabetes mellitus with hyperglycemia; F17.210 Nicotine dependence, cigarettes, uncomplicated; Z79.4 Long term (current) use of insulin; Z79.899 Other long term (current) drug therapy; Z95.810 Presence of automatic (implantable) cardiac defibrillator; Z13.31 Encounter for screening for depression; Z13.39 Encounter for screening examination for other mental health and behavioral disorders | CPT/HCPCS: 96127; 99212 ==

== ENCOUNTER → 2025-07-17 10:02 | Outpatient (AMB) | payer MEDICARE, SELFPAY ==
--- NOTE | 2025-07-17 10:00 | A.OFFPC_ITS ---
Vital Signs 07/17/25 10:07 Height 6 ft Weight 296 lb BMI 40.1 BP 158/80 H Blood Pressure Location Rt brachial Position Sitting Respiration 18 Pulse 78 Pulse Source Pulse Oximeter Temp 97.6 F Temp Source Temporal Artery Scan Pulse Oximetry (%) 98 Oxygen Delivery Method Room Air Intake Visit Reasons: Routine F/U from [employer] Rep Required: No Allergies ibuprofen (From Motrin) Adverse Reaction (Mild, Verified 07/17/25 10:00) NAUSEA & VOMITING PCN Allergy (Unknown, Uncoded 03/19/25 15:43) unknown reaction Tobacco use date assessed: 03/19/25 Dental Screening Dental Screen Date: 03/19/25 HPI HPI Comments History of Present Illness Details 71-year-old male with past medical histo ry of heart failure reduced EF (25%), hypertension, type 2 diabetes mellitus, hyperlipidemia, status post AICD placement (bi V) who presents to clinic today for regular scheduled follow-up. He reports feeling well with no active complaints or concerns. He reports being adherent to his medications however is unsure why his pressures are elevated in clinic today. He denies any nausea, vomiting, chest pain or shortness of breath. He does report having difficulty following up with his lung cancer screening given his situation at home. [facility] Medical History Nicotine dependence, cigarettes, uncomplicated Biventricular implantable cardioverter-defibrillator (ICD) in situ Nonischemic cardiomyopathy Heart failure with reduced ejection fraction HLD (hyperlipidemia) HTN (hypertension) Diabetes Hypothyroid CONCEPCION (obstructive sleep apnea) Tubular adenoma of colon Nephrolithiasis Surgical History S/P cardiac cath History of tonsillectomy History of lithotripsy History of colonoscopy (~04/10/23) Family History Father Lung cancer Mother Hx of CABG Social History Housing: Condominium Alcohol intake: current Alcohol intake frequency: holidays/special occasions only Patient Tobacco Use Status: Former Tobacco user e-Cigarette/Vaping Use: Never Used service: No Current occupational status: employed and retired 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 1. Little interest or pleasure in doing things: not at all 2. Feeling down, depressed, or hopeless: not at all 3. Trouble falling or staying asleep, or sleeping too much: not at all 4. Feeling tired or having little energy: not at all 5. Poor appetite or overeating: not at all 6. Feeling bad about yourself - or that you are a failure or have let yourself or your family down: not at all 7. Trouble concentrating on things, such as reading the newspaper or watching television: not at all 8. Moving or speaking so slowly that other people could have noticed. Or the op posite - being so fidgety or restless that you have been moving around a lot more than usual: not at all 9. Thoughts that you would be better off or of hurting yourself in some way: not at all Total score: 0 Depression Screening Interpretation: Negative Depression Screening Done: Yes 50146 - PHQ-9 Billing: Yes Source: Developed by Drs. Julio Bhatia, Marisol Whitley, Mark Anthony Jose and colleagues, with an educational live from [employer]. Thrive Questionnaire Date Thrive assessed: 03/19/25 RITA-7 AMB Questionnaire RITA-7 Date RITA - 7 assessed: 07/17/25 Feeling nervous, anxious, or on edge: 0 = Not at all Not being able to stop or control worryin = Not at all Worrying too much about different things: 0 = Not at all Trouble relaxin = Not at all Being so restless that it is hard to sit still: 0 = Not at all Becoming easily annoyed or irritable: 0 = Not at all Feeling afraid as if something awful might happen: 0 = Not at all Total RITA-7 score (0-4 normal; 5-9 mild; 10-14 moderate; 15-21 severe): 0 Source: Developed by Drs. Julio Bhatia, Mark Anthony Marina and colleagues, with an educational live from [employer]. RITA-7 Assessment Billing RITA-7 Assessment Tool: RITA-7 Assessment 29153 Review of Systems Const Details: Constitutional: No Weight Change, No Fever, No Chills, No Night Sweats, No Fatigue, No Malaise ENT/Mouth: No Hearing Changes, No Ear Pain, No Nasal Congestion, No Sinus Pain, No Hoarseness, No sore throat, No Rhinorrhea, No Swallowing Difficulty Eyes: No Eye Pain, No Swelling, No Redness, No Foreign Body, No Discharge, No Vision Changes Cardiovascular: No Chest Pain, No SOB, No PND, No Dyspnea on Exertion, No Orthopnea, No Claudication, No Edema, No Palpitations Respiratory: No Cough, No Sputum, No Wheezing, No Smoke Exposure, No Dyspnea Gastrointestinal: No Nausea, No Vomiting, No Diarrhea, No Constipation, No Pain, No Heartburn, No Anorexia, No Dysphagia, No Hematochezia, No Melena, No Flatulence, No Jaundice Genitourinary: No Dysmenorrhea, No DUB, No Dyspareunia, No Dysuria, No Urinary Frequency, No Hematuria, No Urinary Incontinence, No Urgency, No Flank Pain, No Urinary Flow Changes, No Hesitancy Musculoskeletal: No Arthralgias, No Myalgias, No Joint Swelling, No Joint Stiffness, No Back Pain, No Neck Pain, No Injury History Skin: No Skin Lesions, No Pruritis, No Hair Changes, No Breast/Skin Changes, No Nipple Discharge Neuro: No Weakness, No Numbness, No Paresthesias, No Loss of Consciousness, No Syncope, No Dizziness, No Headache, No Coordination Changes, No Recent Falls Psych: No Anxiety/Panic, No Depression, No Insomnia, No Personality Changes, No Delusions, No Rumination, No SI/HI/AH/VH, No Social Issues, No Memory Changes, No Violence/Abuse Hx., No Eating Concerns Heme/Lymph: No Bruising, No Bleeding, No Transfusions History, No Lymphadenopathy Endocrine: No Polyuria, No Polydipsia, No Temperature Intolerance Physical exam (Primary Care) Vital Signs: Last Vital Signs Temp 97.6 F 07/17/25 10:07 Pulse 78 07/17/25 10:07 Resp 18 07/17/25 10:07 BP 158/80 H 07/17/25 10:07 Pulse Ox 98 07/17/25 10:07 Oxygen Delivery Method Room Air 07/17/25 10:07 BMI result Body Mass Index 40.1 Tobacco/Smoking Status: Tobacco use Status Tobacco use date assessed 03/19/25 07/17/25 10:03 Patient Tobacco Use Status Former Tobacco user 07/17/25 10:03 e-Cigarette/Vaping Use Never Used 07/17/25 10:03 Depression Screening Interpretation: Negative Thrive Assessment: Date of Thrive Assessment Date Thrive assessed 03/19/25 07/17/25 10:03 Const Other: GEN: Healthy appearing, well-developed, NAD. PSYCH: Good Judgment. AOx3. Normal memory, mood, and affect. HEENT: -Head: NC/AT; -Eyes: No discharge or redness; -Ears: External ears are normal. -Nose: Normal nares. -Mouth and throat: MMM. Normal gums, mucosa, palate,. Good dentition. CV: RRR, no m/r/g. LUNGS: CTAB, no w/r/c. ABD: Soft, NT/ND, NBS, no masses or organomegaly. : N/A SKIN: Warm, well perfused. No skin rashes or abnormal lesions. MSK: Normal gait. No deformities. EXT: No clubbing, cyanosis, or edema. NEURO: Ambulating with no limitations. No focal deficits. Coding Level of Care Code Est Pt Level 4 (24605) Est Pt Prev Care >65y(02132) Diagnoses Primary hypertension I10 Hypertension type: primary hypertension Heart failure with reduced ejection fraction I50.20 CAD (coronary artery disease) I25.10 Biventricular implantable cardioverter-defibrillator (ICD) in situ Z95.810 HLD (hyperlipidemia) E78.5 Type 2 diabetes mellitus with hyperglycemia, with long-term current use of insulin E11.65; Z79.4 Diabetes mellitus complication status: with hyperglycemia Diabetes mellitus terminal superintendent insulin use: with senior care use Diabetes mellitus type: type 2 Nicotine dependence, cigarettes, uncomplicated F17.210 Additional Codes RITA-7 Assessment Billing - RITA-7 Assessment Tool: RITA-7 Assessment 12526 ([id number]) PHQ-9 - 35458 - PHQ-9 Billing: Yes ([id number]) Assessment & Plan Assessment & Plan (1) HTN (hypertension): Comment: No medications include Entresto 4951, Coreg 12.5. His pressures today are elevated however he does report normally having normal pressures at home and during previous hospitalizations it is unclear as to why this happened. I have requested him to monitor his pressures over the next week or so and if they remain persistently elevated to schedule another appointment in order to have his blood pressure medications increased otherwise continue the same medications. Code(s): I10 - Essential (primary) hypertension Category: Medical Qualifiers: Hypertension type: primary hypertension Qualified Code(s): I10 - Essential (primary) hypertension Plan: Continued Entresto Continue Coreg (2) Heart failure with reduced ejection fraction: Comment: Heart failure reduced EF with an EF of 22% as per patient however no echo available in chart. He does have a Bi V device placed/AICD for left bundle branch block. Also on Coreg, Lasix 20 and Entresto. Has not been started on Jardiance but will defer that management to Cardiology Code(s): I50.20 - Unspecified systolic (congestive) heart failure Category: Medical Plan: Continue management Per Cardiology (3) CAD (coronary artery disease): Comment: Per Cardiology Code(s): I25.10 - Atherosclerotic heart disease of [place] coronary artery without angina pectoris Category: Medical (4) Biventricular implantable cardioverter-defibrillator (ICD) in situ: Comment: Medtronic, 06/18/2024 Code(s): Z95.810 - Presence of automatic (implantable) cardiac defibrillator Category: Medical (5) HLD (hyperlipidemia): Comment: Currently being managed on atorvastatin 40 mg however has been off medication for multiple months given muscular pain and was held off by Cardiology therefore we will transition to rosuvastatin 20 mg and obtain lipid panel at next visit Code(s): E78.5 - Hyperlipidemia, unspecified Category: Medical Plan: Start rosuvastatin 20 mg daily (6) Diabetes: Comment: Home regimen: Lantus 20 units q.h.s. and Trulicity 1.5 mg. Has had massive improvement in A1c from 8.4-6.8 on Trulicity 1.5 and Lantus regimen therefore we will continue the same (no thyroid nodules appreciated on exam) Code(s): E11.9 - Type 2 diabetes mellitus without complications Category: Medical Qualifiers: Diabetes mellitus complication status: with hyperglycemia Diabetes mellitus terminal superintendent insulin use: with senior care use Diabetes mellitus type: type 2 Qualified Code(s): E11.65 - Type 2 diabetes mellitus with hyperglycemia; Z79.4 - superintendent marine oil terminal (current) use of insulin Plan: Continue Trulicity Continue Lantus (7) Nicotine dependence, cigarettes, uncomplicated: Comment: (smoker >30pyh) Code(s): F17.210 - Nicotine dependence, cigarettes, uncomplicated Category: Medical Plan: Order lung cancer screen Plan - - - - Orders: Orders CT lung screening Today F17.210 - Nicotine dependence, cigarettes, uncomplicated Medications: New rosuvastatin 20 mg PO DAILY 30 tabs 0RF 30 days blood-glucose,senior administrative associate,cont (FreeStyle [place]) As directed 1 ea 12RF Refilled dulaglutide (Trulicity) 1.5 mg (0.5 mL) subcut QWEEK 6 mL 3RF E11.9 - Type 2 diabetes mellitus without complications Discontinued atorvastatin Discontinued Reason: Doctor's Order 40 mg PO BEDTIME 90 tabs 3RF
[2025-07-17 10:07] VITALS: BP 158/80; PULSE 78; RESP 18; TEMP 36.4; O2SAT 98; BMI 40.1
== END ==
PROVIDERS: PCP Student in an Organized Health Care Education/Training Program; Visit Provider Student in an Organized Health Care Education/Training Program
DX: E11.65 Type 2 diabetes mellitus with hyperglycemia (principal); I50.20 Unspecified systolic (congestive) heart failure; Z79.4 Long term (current) use of insulin; I10 Essential (primary) hypertension; I25.10 Atherosclerotic heart disease of native coronary artery without angina pectoris; Z95.810 Presence of automatic (implantable) cardiac defibrillator; E78.5 Hyperlipidemia, unspecified; F17.210 Nicotine dependence, cigarettes, uncomplicated

== ENCOUNTER → 2025-07-20 23:59 | Outpatient (BNV) | payer MEDICARE, SELFPAY ==
--- NOTE | 2025-07-22 15:04 | A.OFFVIS_ITS ---
Intake Visit Reasons: Remote HF Monitoring- Medtronic Allergies ibuprofen (From Motrin) Adverse Reaction (Mild, Verified 07/17/25 10:00) NAUSEA & VOMITING PCN Allergy (Unknown, Uncoded 03/19/25 15:43) unknown reaction PFSH Medical History Nicotine dependence, cigarettes, uncomplicated Biventricular implantable cardioverter-defibrillator (ICD) in situ Nonischemic cardiomyopathy Heart failure with reduced ejection fraction HLD (hyperlipidemia) HTN (hypertension) Diabetes Hypothyroid CONCEPCION (obstructive sleep apnea) Tubular adenoma of colon Nephrolithiasis Surgical History S/P cardiac cath History of tonsillectomy History of lithotripsy History of colonoscopy (~04/10/23) Family History Father Lung cancer Mother Hx of CABG [facility] Alcohol intake: current Alcohol intake frequency: holidays/special occasions only Patient Tobacco Use Status: Former Tobacco user e-Cigarette/Vaping Use: Never Used service: No Current occupational status: employed and retired 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 Heart failure parameters are stable [id number] Cardiac Device Interrogation, cardio physiologic monitor Procedure code (CPT) selection complete Assessment & Plan Assessment & Plan (1) Biventricular implantable cardioverter-defibrillator (ICD) in situ: Comment: Medtronic, 06/18/2024 Code(s): Z95.810 - Presence of automatic (implantable) cardiac defibrillator Category: Medical Plan: See above Coding Level of Care Code Procedure Only Diagnoses Biventricular implantable cardioverter-defibrillator (ICD) in situ Z95.810 CPT Codes Cardiac Device Check - Cardiac Device 15: [id number]-Zrgolz Cardiac Device Interrogat ion, cardio physiologic monitor ([id number])
== END ==
PROVIDERS: PCP Student in an Organized Health Care Education/Training Program; Visit Provider Internal Medicine Cardiovascular Disease
DX: Z45.02 Encounter for adjustment and management of automatic implantable cardiac defibrillator (principal)
CPT/HCPCS: 93297

== ENCOUNTER → 2025-08-19 23:59 | Outpatient (BNV) | payer MEDICARE, SELFPAY ==
--- NOTE | 2025-08-24 09:18 | MHC.OFFVIS ---
Intake Visit Reasons: Remote HF Monitoring- Medtr[employer] Allergies ibuprofen (From Motrin) Adverse Reaction (Mild, Verified 07/17/25 10:00) NAUSEA & VOMITING PCN Allergy (Unknown, Uncoded 03/19/25 15:43) unknown reaction PFSH Medical History Nicotine dependence, cigarettes, uncomplicated Biventricular implantable cardioverter-defibrillator (ICD) in situ Nonischemic cardiomyopathy Heart failure with reduced ejection fraction HLD (hyperlipidemia) HTN (hypertension) Diabetes Hypothyroid CONCEPCION (obstructive sleep apnea) Tubular adenoma of colon Nephrolithiasis Surgical History S/P cardiac cath History of tonsillectomy History of lithotripsy History of colonoscopy (~04/10/23) Family History Father Lung cancer Mother Hx of CABG [facility] Alcohol intake: current Alcohol intake frequency: holidays/special occasions only Patient Tobacco Use Status: Former Tobacco user e-Cigarette/Vaping Use: Never Used service: No Current occupational status: employed and retired 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 Heart failure parameters are stable [id number] Cardiac Device Interrogation, cardio physiologic monitor Procedure code (CPT) selection complete Assessment & Plan Assessment & Plan (1) Biventricular implantable cardioverter-defibrillator (ICD) in situ: Comment: [employer]tronic, 06/18/2024 Code(s): Z95.810 - Presence of automatic (implantable) cardiac defibrillator Category: Medical Plan: See above Coding Level of Care Code Procedure Only Diagnoses Biventricular implantable cardioverter-defibrillator (ICD) in situ Z95.810 CPT Codes Cardiac Device Check - Cardiac Device 15: [id number] Cardiac Device Interrogation, cardio physiologic monitor ([id number])
== END ==
PROVIDERS: PCP Student in an Organized Health Care Education/Training Program; Visit Provider Internal Medicine Cardiovascular Disease
DX: Z45.02 Encounter for adjustment and management of automatic implantable cardiac defibrillator (principal)
CPT/HCPCS: 93297

== ENCOUNTER → 2025-08-19 23:59 | Outpatient (BNV) | payer MEDICARE, SELFPAY ==
--- NOTE | 2025-08-24 09:17 | A.OFFVIS_ITS ---
Intake Visit Reasons: Remote device check- Med[employer] Allergies ibuprofen (From Motrin) Adverse Reaction (Mild, Verified 07/17/25 10:00) NAUSEA & VOMITING PCN Allergy (Unknown, Uncoded 03/19/25 15:43) unknown reaction PFSH Medical History Nicotine dependence, cigarettes, uncomplicated Biventricular implantable cardioverter-defibrillator (ICD) in situ Nonischemic cardiomyopathy Heart failure with reduced ejection fraction HLD (hyperlipidemia) HTN (hypertension) Diabetes Hypothyroid CONCEPCION (obstructive sleep apnea) Tubular adenoma of colon Nephrolithiasis Surgical History S/P cardiac cath History of tonsillectomy History of lithotripsy History of colonoscopy (~04/10/23) Family History Father Lung cancer Mother Hx of CABG [facility] Alcohol intake: current Alcohol intake frequency: holidays/special occasions only Patient Tobacco Use Status: Former Tobacco user e-Cigarette/Vaping Use: Never Used service: No Current occupational status: employed and retired 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 ICD function is adequate. No arrhythmias noted. Bi V pacing 96.3% of the time [id number] Cardiac Interrogation, implant defibrillator w/interim Procedure code (CPT) selection complete Assessment & Plan Assessment & Plan (1) Biventricular implantable cardioverter-defibrillator (ICD) in situ: Comment: Medtronic, 06/18/2024 Code(s): Z95.810 - Presence of automatic (implantable) cardiac defibrillator Category: Medical Plan: See above Coding Level of Care Code Procedure Only Diagnoses Biventricular implantable cardioverter-defibrillator (ICD) in situ Z95.810 CPT Codes Cardiac Device Check - Cardiac Device 13: [id number] Cardiac Interrogation, implant defibrillator w/interim ([id number])
== END ==
PROVIDERS: PCP Student in an Organized Health Care Education/Training Program; Visit Provider Internal Medicine Cardiovascular Disease
DX: Z45.02 Encounter for adjustment and management of automatic implantable cardiac defibrillator (principal)
CPT/HCPCS: 93295

== ENCOUNTER → 2025-09-18 23:59 | Outpatient (BNV) | payer MEDICARE, SELFPAY ==
--- NOTE | 2025-09-23 15:17 | MHC.OFFVIS ---
Intake Visit Reasons: Remote HF Monitoring- Med[employer] Allergies ibuprofen (From Motrin) Adverse Reaction (Mild, Verified 07/17/25 10:00) NAUSEA & VOMITING PCN Allergy (Unknown, Uncoded 03/19/25 15:43) unknown reaction PFSH Medical History Nicotine dependence, cigarettes, uncomplicated Biventricular implantable cardioverter-defibrillator (ICD) in situ Nonischemic cardiomyopathy Heart failure with reduced ejection fraction HLD (hyperlipidemia) HTN (hypertension) Diabetes Hypothyroid CONCEPCION (obstructive sleep apnea) Tubular adenoma of colon Nephrolithiasis Surgical History S/P cardiac cath History of tonsillectomy History of lithotripsy History of colonoscopy (~04/10/23) Family History Father Lung cancer Mother Hx of CABG [facility] Alcohol intake: current Alcohol intake frequency: holidays/special occasions only Patient Tobacco Use Status: Former Tobacco user e-Cigarette/Vaping Use: Never Used service: No Current occupational status: employed and retired 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 Heart failure parameters are within normal limits [id number] Cardiac Interrogation, subcut cardiac rhythm monitor Procedure code (CPT) selection complete Assessment & Plan Assessment & Plan (1) Biventricular implantable cardioverter-defibrillator (ICD) in situ: Comment: [employer], 06/18/2024 Code(s): Z95.810 - Presence of automatic (implantable) cardiac defibrillator Category: Medical Plan: See above Coding Level of Care Code Procedure Only Diagnoses Biventricular implantable cardioverter-defibrillator (ICD) in situ Z95.810 CPT Codes Cardiac Device Check - Cardiac Device 16: [id number] Cardiac Interrogation, subcut cardiac rhythm monitor ([id number])
== END ==
PROVIDERS: PCP Student in an Organized Health Care Education/Training Program; Visit Provider Internal Medicine Cardiovascular Disease
DX: I47.10 Supraventricular tachycardia, unspecified (principal); Z95.810 Presence of automatic (implantable) cardiac defibrillator
CPT/HCPCS: 93298

== ENCOUNTER → 2025-09-28 13:47 | Outpatient (REF) | payer MEDICARE, SELFPAY ==
--- NOTE | 2025-09-28 13:50 | CA_ITS ---
Transthoracic Echocardiogram Patient (Last, First, Middle): Marco Cameron F Gender: M Date of : 1955 Age: 70 Procedure Date: 09/28/2025 Procedure Type: Transthoracic Echocardiogram Location: OP Height: 182.88 cm Weight: 130.18 kg BSA: 2.48 m2 Heart Rate: bpm BP: 128 / 80 mmHg Pharmaceutical Assistant: Referring MD: Yovany Mirza MD Journalism Professor: Yovany Mirza MD Symptoms: I50.20 - Unspecified systolic (congestive) heart failure Study Quality: Adequate ECG Rhythm: Sinus Conclusions: - 1. Moderately reduced LV ejection fraction of 35-40% with impaired relaxation filling pattern 2. Mild aortic stenosis 3. Normal RV systolic pressure 4. Mildly dilated ascending aorta at 3.7 cm 5. No gross pericardial effusion Findings Left Ventricle Normal left ventricular cavity size. There is mildly increased left ventricular wall thickness. The left ventricular systolic function is moderately decreased. The visually estimated ejection fraction is between 35 40%. There is moderate global hypokinesis. Spectral Doppler is indicative of an impaired relaxation filling pattern. Elevated filling pressures. Wall Motion Rest Echo Findings The basal inferolateral segment is hypokinetic. Right Ventricle Normal right ventricular cavity size and systolic function. There is an ICD wire seen in the right ventricle. Atria Both atria are normal in size. There is no evidence of interatrial shunt. A pacemaker wire is identified in the right atrium. Aortic Valve There is mild calcification of the aortic valve. There is mild aortic valve stenosis. The mean gradient is 9 mmHg. The aortic valve area is 2.02 cm2. There is trace (trivial) aortic valve regurgitation. Mitral Valve There is mild anterior and posterior mitral leaflet thickening. There is mild mitral annular calcification. There is mild mitral valve regurgitation. There is no mitral valve stenosis. Pulmonic Valve The pulmonic valve is likely normal. Tricuspid Valve Normal tricuspid valve structure. There is mild tricuspid valve regurgitation. The right ventricular systolic pressure is normal. The right ventricular systolic pressure is 19 mmHg. Normal right atrial pressure. There is no evidence of pulmonary hypertension. Great Vessels The pulmonary artery was not well visualized. There is mild dilatation of the ascending aorta measuring 3.70 cm. Venous The inferior vena cava is normal in size and collapses greater than 50% with inspiration. Pericardium/Pleural There is no evidence of pericardial effusion. Prior Study Comparison Changes noted compared to prior study dated: 10/13/2025. LV ejection fraction has improved. Mild aortic stenosis is noted. Mitral regurgitation has improved. RV systolic pressure have normalized Measurements 2D Linear Measurements IVSd: 1.30 0.6-0.9/0.6-1.0 cm LVIDd: 6.31 3.9-5.3/4.2-5.9 cm LVIDd Index: 2.54 2.4-3.2/2.2-3.1 cm/m2 LVIDs: 4.96 2.0-3.6 cm LVPWd: 1.27 0.7-1.1 cm Ao Root: 3.70 2.1-3.5 cm LA Diam: 4.40 2.7-3.8/3.0-4.0 cm LAIDs Index: 1.77 1.5-2.3 cm/m2 LV Mass: 466.95 67-162/88-224 g LV Mass Index: 188.29 43-95/49-115 g/m2 LVOT Diam: 2.10 3.0+(-)1.3 cm 2D Systolic Function EF 4C: 44.50 >55% EF 2C: 31.40 >55% EF BiP: 39.60 >55% Mitral Valve MV Pk E: 0.75 MV PK A: 1.24 MV Decel Time: 108.00 E/A: 0.60 E'Lateral: 4.13 E'Medial: 4.13 E/E' Med: 18.20 E/E' Lat: 18.20 PHT: 32.00 MVA PHT: 6.88 Decel Coamo: 6.95 Aortic Valve AoV Pk Marcial: 2.14 AoV Mn Marcial: 1.41 AoV VTI: 0.44 AoV Pk Grad: 18.00 Aov Mn Grad: 9.00 PRESLEY Cont.VTI: 2.02 LVOT LVOT Pk Marcial: 1.07 LVOT Mn Marcial: 0.82 LVOT VTI: 0.25 LVOT Pk Grad: 5.00 LVOT Mn Grad: 3.00 LVOT Diam: 2.10 LVOT Area: 3.46 Diastolic Function MV Pk E: 0.75 MV Pk A: 1.24 E/A: 0.60 E'Medial: 4.13 E/E' Med: 18.20 E' Laterial: 4.13 E/E' Lat: 18.20 Right Ventricle TAPSE (mm): 36.00 TVS' Marcial: 15.00 Tricuspid Valve TR Pk Marcial: 2.01 TR Pk Grad: 16.00 RA Press: 3.00 RVSP: 19.00 Great Vessels Aorta Ao Root-2D: 3.70 2.0-3.7 cm Ao Asc: 3.70 2.1-3.4 cm Pulmonary Valve PV Pk Marcial: 1.16 Peak PV Grad: 5.00 Updated in Other Vendor System with Status of Final Yovany Mirza MD electronically signed on 09/29/2025 11:07:17 AM with status of Final
== END ==
LOC: HO.CARD 13:47
PROVIDERS: PCP Student in an Organized Health Care Education/Training Program; Visit Provider Internal Medicine Cardiovascular Disease
DX: I50.20 Unspecified systolic (congestive) heart failure (principal)
CPT/HCPCS: 93306

== ENCOUNTER → 2025-09-28 13:50 | Outpatient (BNV) | payer MEDICARE, SELFPAY | PROVIDERS: PCP Student in an Organized Health Care Education/Training Program; Visit Provider Internal Medicine Cardiovascular Disease | DX: I35.0 Nonrheumatic aortic (valve) stenosis (principal); I77.810 Thoracic aortic ectasia | CPT/HCPCS: 93306 ==

== ENCOUNTER 2025-10-23 15:43 | Outpatient (REF) | payer MEDICARE, SELFPAY ==
--- NOTE | ~2025-10-23 | CT_ITS ---
EXAMINATION: CT LOW-DOSE SCREENING CHEST WITHOUT CONTRAST CLINICAL INFORMATION: 70 year-old male, former smoker, 43 pack year history, quit 7 years prior. Lung cancer screening. COMPARISON: 10/26/2023 low dose screening. TECHNIQUE: Multidetector volumetric CT imaging of the chest is performed on a Siemens SOMATOM Definition scanner without contrast using low dose technique. Additional 2D coronal and sagittal reformatted images and axial 3D maximum intensity projection (MIP) images are generated on the CT workstation. This CT examination was performed using dose optimization techniques as appropriate, variously including the following: *Automated exposure control *Adjustment of mA and/or kV according to patient size (this includes techniques or standardized protocols for targeted exams where dose is matched to indication/reason for exam; i.e. extremities or head) *Use of iterative reconstruction technique FINDINGS: PULMONARY NODULES: 3 mm nodule anterior right lower lobe (series 4, image 108), unchanged. 4 mm nodule left upper lobe laterally (series 4, image 78), unchanged. 2 mm subpleural nodule left costophrenic sulcus (series 4, image 141), unchanged. No new or enlarging pulmonary nodule. LUNGS: Lungs are well expanded bilaterally and clear. Mild centrilobular emphysema. There are no effusions. There is no interstitial abnormality. The small airways are normal. The central airways are patent. MEDIASTINUM: There is no pathologic mediastinal lymphadenopathy. There are several small reactive appearing lymph nodes present in the mediastinum, mainly prevascular and AP window region, unchanged from the prior examination. The aorta is normal in caliber and course. There is moderate atheromatous calcification. The pulmonary trunk and pulmonary arteries are normal in caliber. The heart size is normal. There are pacemaker/AICD leads present in the right atrium and right ventricle, as well as the coronary sinus. There is no pericardial effusion or thickening. The imaged thyroid is unremarkable. CORONARY ARTERY CALCIFICATION: Moderate. CHEST WALL/AXILLA: Left pacemaker generator device. No abnormal lymph nodes. Mild male gynecomastia. No additional abnormality. UPPER ABDOMEN: Imaged upper abdominal contents are normal allowing for low-dose noncontrast technique. OSSEOUS STRUCTURES: There is no suspicious lytic or blastic bone lesion. CT/CT lung screening IMPRESSION: 1. There are a several scattered pulmonary nodules measuring up to 3 mm, without interval change. There are no new or enlarging nodules. 2. There is mild emphysema. There is no active pulmonary disease. The lungs are clear. 3. There are stable small lymph nodes in the mediastinum, appearance favors reactive etiology. 4. There is a 3-lead pacemaker/AICD device in place. There are moderate coronary calcifications present. ASSESSMENT: 1. Lung-RADS Category 2: Benign appearance or behavior of nodules. 2. Lung-RADS Category S: None. RECOMMENDATION: Continued routine annual low-dose CT lung screening in 1 year is recommended. An order for CT CHEST LOW DOSE CANCER SCREENING ([id number]) can be placed. Electronically signed by: Ryan Botello MD 10/23/2025 04:37 PM [facility]
== END 2025-10-23 15:44 | disposition home or self-care (01) ==
LOC: HO.CT 15:43
PROVIDERS: PCP Student in an Organized Health Care Education/Training Program; Visit Provider Physician Assistant Medical
DX: F17.210 Nicotine dependence, cigarettes, uncomplicated (principal)
CPT/HCPCS: 71271

== ENCOUNTER → 2025-10-23 15:45 | Outpatient (BNV) | payer MEDICARE, SELFPAY | PROVIDERS: PCP Student in an Organized Health Care Education/Training Program; Visit Provider Radiology Diagnostic Radiology | DX: F17.210 Nicotine dependence, cigarettes, uncomplicated (principal) | CPT/HCPCS: 71271 ==

== ENCOUNTER 2025-10-26 15:33 | Outpatient (AMB) | payer MEDICARE, SELFPAY ==
--- NOTE | 2025-10-26 15:37 | A.OFFPC_ITS ---
Vital Signs 10/26/25 15:46 Height 5 ft 11.46 in Weight 294 lb BMI 40.5 BP 148/82 H Blood Pressure Location Rt brachial Position Sitting Respiration 18 Pulse 75 Pulse Source Pulse Oximeter Temp 97.9 F Temp Source Temporal Artery Scan Pulse Oximetry (%) 98 Oxygen Delivery Method Room Air Intake Visit Reasons: 4 month f/u Obstetrical Anesthesiologist Required: No Accompanied by: Self / Same As Patient Allergies ibuprofen (From Motrin) Adverse Reaction (Mild, Verified 10/26/25 15:39) NAUSEA & VOMITING PCN Allergy (Unknown, Uncoded 03/19/25 15:43) unknown reaction Medication List - Last Reconciled 10/26/25 by Hector Reinoso MD aspirin 81 mg PO DAILY blood-glucose,clinic scheduler,cont (FreeStyle Fox 3 Addis) As directed carvedilol (Coreg) 12.5 mg PO BID dulaglutide (Trulicity) 1.5 mg (0.5 mL) subcut QWEEK FreeStyle Fox 3 Plus Sensor (blood-glucose sensor) every 15 days NS furosemide 20 mg PO ONCE glipizide 10 mg (2 x 5 mg) PO BID levothyroxine 200 mcg PO DAILY 90 days metformin 500 mg PO BID pen needle, diabetic (Ultra-Fine Pen Needle) As directed rosuvastatin 20 mg PO DAILY 90 days sacubitril-valsartan 49-51 mg 1 tab PO BID Tobacco use date assessed: 03/19/25 Fall risk assessment: No Falls in past year Last assessed Fall Risk: 10/26/25 Dental Screening Dental Screen Date: 03/19/25 HPI HPI Comments History of Present Illness Details History of Present Illness The patient is a 70 year old male presenting for a three-month follow-up and yearly physical. He reports feeling better since the last visit. The patient has a history of congestive heart failure and reports his heart function has improved from an ejection fraction of 22% to 35-40%, as per a recen t echocardiogram. Due to the severity of his heart failure, which previously left him barely able to walk up stairs, he has a pacemaker-defibrillator in place. Regarding his hyperlipidemia, he notes that a change from an unspecified statin to rosuvastatin has resolved his leg issues. For type 2 diabetes, his HbA1c has improved from a high of 10.3 or 10.4 and 8.6 to 6.8 at the last blood draw, and he reports it is currently around 7.2 on his continuous glucose monitor. He watches his sugar closely and can feel when his levels drop, causing low energy. He finds the CGM to be very helpful. His blood pressure is monitored daily at home, with readings around 130-135/70 mmHg after resting for five minutes. Today's reading was 148/82 mmHg. The patient has a history of smoking for over 40 years but quit 6-8 years ago. He recently had a CT for lung cancer screening on October 23, which showed no new nodules and was stable from the prior scan. His next colonoscopy is not due until 2032. Medical History: - Congestive heart failure, with ejectio n fraction improved from 22% to 35-40% - Coronary artery disease - Type 2 diabetes mellitus - Hypertension - Hyperlipidemia - Hypothyroidism - Former smoker (40+ years, quit 6-8 yea rs ago) Surgical History: - Pacemaker-defibrillator implantation Medications: - Aspirin 81 mg for coronary artery dise ase - Carvedilol 12.5 mg twice a day for hyp ertension and heart failure - Trulicity 1.5 weekly for diabetes - Furosemide 20 mg for heart failure - Glipizide 10 mg twice a day for diabet es - Lantus 20 units nightly for diabetes - Levothyroxine 200 mcg once a day for h ypothyroidism - Metformin 500 mg twice a day for diabe annie - Rosuvastatin 20 mg daily for hyperlipi demia - Entresto 49/51 mg twice a day for hear t failure Diagnostic Results: - Labs: Previous labs in June showed H bA1c had decreased from 8.3 to 6.8, and liver and thyroid function tests were normal. - Imaging: Recent echocardiogram showed improved heart function with an ejection fraction of 35-40%, up from 22%. - Other diagnostics: Recent CT lung scan for lung cancer screening on October 23 was stable with no new nodules. Social History - Substance Use: He has a history of smo josh for over 40 years but quit 6-8 years ago. 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 - Exercise: He reports being inactive in the current cold weather, with average steps around 2,000 a day, down from a normal of 8,000-10,000. - Exercise: He plans to be more active a nd ride his bike while in [place] for the winter. - Diet: He reports his diet is pretty go od, with a lot of vegetables and fiber. - Diet: He notes that certain foods, lik e Raisin Bran, can cause his blood sugar to spike significantly. [facility] Medical History Nicotine dependence, cigarettes, uncomplicated Biventricular implantable cardioverter-defibrillator (ICD) in situ Nonischemic cardiomyopathy Heart failure with reduced ejection fraction HLD (hyperlipidemia) HTN (hypertension) Diabetes Hypothyroid CONCEPCION (obstructive sleep apnea) Tubular adenoma of colon Nephrolithiasis Surgical History S/P cardiac cath History of tonsillectomy History of lithotripsy History of colonoscopy (~04/10/23) Family History Father Lung cancer Mother Hx of CABG Social History Housing: Condominium Alcohol intake: current Alcohol intake frequency: holidays/special occasions only Patient Tobacco Use Status: Former Tobacco user Years Smoked: 45 years e-Cigarette/Vaping Use: Never Used service: No Current occupational status: employed and retired 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 Julio Bhatia, Marisol Whitley, Mark Anthony Jose and colleagues, with an educational live from [employer]. Review of Systems Narrative Review of Systems - General: Reports feeling great and better than he has in a long time. - Denies nausea, vomiting, chest pain, shortness of breath, headaches, and vision changes. All systems reviewed & are unremarkable except as reviewed in HPI and above Physical exam (Primary Care) Vital Signs: Last Vital Signs Temp 97.9 F 10/26/25 15:46 Pulse 75 10/26/25 15:46 Resp 18 10/26/25 15:46 BP 148/82 H 10/26/25 15:46 Pulse Ox 98 10/26/25 15:46 Oxygen Delivery Method Room Air 10/26/25 15:46 Care Plan Goal for BP management: Normal at home Next steps: Continue to monitor BMI result Body Mass Index 40.5 Tobacco/Smoking Status: Tobacco use Status Tobacco use date assessed 03/19/25 10/26/25 15:39 Patient Tobacco Use Status Former Tobacco user 10/26/25 15:39 e-Cigarette/Vaping Use Never Used 10/26/25 15:39 Thrive Assessment: Date of Thrive Assessment Date Thrive assessed 03/19/25 10/26/25 15:39 Narrative Physical Exam General: Alert and oriented, Well nourished, No acute distress. Eye: Pupils are equal, round and reactive to light, Intact accommodation, Ext raocular movements are intact, Normal conjunctiva, Vision unchanged. HENT: Normocephalic, Atraumatic, Tympanic membranes are clear, Normal hearing, Oral mucosa is moist, No pharyngeal erythema, Ear canals patent. Respiratory: Lungs CTA bilaterally, No wheeze, Respirations are non-labored. Cardiovascular: Regular rate, Regular rhythm, S1 auscultated, S2 auscultated, No murmur, Good pulses equal in all extremities, Normal peripheral perfusion, No edema. Gastrointestinal: Soft, Non-tender, Non-distended, Normal bowel sounds, No organomegaly. Musculoskeletal: Normal range of motion, Normal strength, No tenderness, No swelling, No deformity, Normal gait. Integumentary: Warm, Dry, [place], Intact. Neurologic: Alert, Oriented, Normal sensory, Normal motor function, No focal defects, Cranial Nerves II-XII are grossly intact, Normal deep tendon reflexes. Psychiatric: Cooperative, Appropriate mood & affect, Normal judgment. Coding Level of Care Code Est Pt Level 4 (39507) Complex visit Add On G2211 Diagnoses Heart failure with reduced ejection fraction I50.20 Primary hypertension I10 Hypertension type: primary hypertension Type 2 diabetes mellitus with hyperglycemia, with long-term current use of insulin E11.65; Z79.4 Diabetes mellitus type: type 2 Diabetes mellitus [facility] use: with [facility] use Diabetes mellitus complication status: with hyperglycemia Other hyperlipidemia E78.49 Hyperlipidemia type: other hyperlipidemia Hypothyroidism, unspecified type E03.9 Hypothyroidism type: unspecified Assessment & Plan Assessment & Plan (1) Heart failure with reduced ejection fraction: Comment: - The patient's heart function has shown significant improvement, with ejection fraction increasing from 22% to 35-40% on a recent echocardiogram. - He is on an appropriate medication regimen including Entresto, carvedilol, and furosemide. - Blood pressure control is important for further improvement, but medication changes will be deferred to his credit compliance officer, Dr. Johns, whom he will see next week. Code(s): I50.20 - Unspecified systolic (congestive) heart failure Category: Medical (2) HTN (hypertension): Comment: - Blood pressure at home is around 130-135/70 mmHg, but in-office reading was 148/82 mmHg. - More aggressive blood pressure control is needed given his heart failure. - Management will be deferred to cardiology to titrate medications. Code(s): I10 - Essential (primary) hypertension Category: Medical Qualifiers: Hypertension type: primary hypertension Qualified Code(s): I10 - Essential (primary) hypertension (3) Diabetes: Comment: - HbA1c has been well-controlled, down to 6.8 at the last check, and currently estimated around 7.2 via CGM. - The patient is aware of dietary impacts on his glucose levels and uses a CGM to monitor. - He was advised to increase physical activity. - Medication refills for glipizide and pen needles for Lantus will be sent. Code(s): E11.9 - Type 2 diabetes mellitus without complications Category: Medical Qualifiers: Diabetes mellitus type: type 2 Diabetes mellitus terminal superintendent insulin use: with [facility] use Diabetes mellitus complication status: with hyperglycemia Qualified Code(s): E11.65 - Type 2 diabetes mellitus with hyperglycemia; Z79.4 - terminal superintendent (current) use of insulin (4) HLD (hyperlipidemia): Comment: - The patient's leg symptoms resolved after switching to rosuvastatin. - Non-fasting labs, including a lipid panel, were ordered for today to assess current status. Code(s): E78.5 - Hyperlipidemia, unspecified Category: Medical Qualifiers: Hyperlipidemia type: other hyperlipidemia Qualified Code(s): E78.49 - Other hyperlipidemia (5) Hypothyroid: Comment: - Thyroid function was normal on labs from June. - A refill for levothyroxine was sent. Code(s): E03.9 - Hypothyroidism, unspecified Category: Medical Qualifiers: Hypothyroidism type: unspecified Qualified Code(s): E03.9 - Hypothyroidism, unspecified Plan: Health Maintenance: - Yearly Physical: This visit was designated as the patient's yearly physical exam. - Lung Cancer Screening: The patient is up-to-date with annual lung cancer screening via CT scan. The most recent scan on October 23 was stable with no new nodules, and annual screening will continue. - Colonoscopy: He is not due for another colonoscopy until 2032. - Immunizations: The patient was advised to get a flu shot, which he agreed to obtain from a pharmacy. He declined the COVID shot. - Ophthalmic Exam: He recently had his annual diabetic eye check, and it was good. - Lifestyle: He was encouraged to maintain physical activity, especially during his upcoming extended stay in [place] where he plans to ride his bike. Patient was informed and verbally consented to the use of an ambient scribe for clinic note documentation during this visit. Plan I reviewed with the patient his recent echocardiogram results, which show a significant improvement in his heart function, with his ejection fraction now at 35-40%. We discussed that better blood pressure control could lead to even more improvement in his heart function. However, I informed him that I will defer any changes to his blood pressure medications to his credit compliance officer, Dr. Johns, whom he will see next week. We discussed his recent lung cancer screening results, which were stable, and the need for continued annual screening. I recommended he receive the flu shot, which he agreed to get, but he declined the COVID vaccine. I ordered comprehensive bloodwork to be done today and explained that I would message him via the patient portal if any results are abnormal. Medication refills for glipizide, levothyroxine, and pen needles were sent to his pharmacy. We agreed on a follow-up appointment in about 5 months, in March, after he returns from [place]. Orders: Orders Complete Blood Count Auto Diff Today Z00.00 - Encounter for general adult medical examination without abnormal findings Comprehensive Met. Panel Today Z00.00 - Encounter for general adult medical examination without abnormal findings Hemoglobin A1c Today Z00.00 - Encounter for general adult medical examination without abnormal findings Hepatitis A,B,C Profile Today Z00.00 - Encounter for general adult medical examination without abnormal findings Microalbumin, Random (w Creat) Today Z00.00 - Encounter for general adult medical examination without abnormal findings Syphilis Screen Today Z00.00 - Encounter for general adult medical examination without abnormal findings TSH reflex Free T4 Today Z00.00 - Encounter for general adult medical examination without abnormal findings Vitamin D 25-OH Total Today Z00.00 - Encounter for general adult medical examination without abnormal findings HIV Ab/Ag Today Z00.00 - Encounter for general adult medical examination without abnormal findings Lipid Panel Today Z00.00 - Encounter for general adult medical examination without abnormal findings Medications: New insulin glargine (Lantus Solostar U-100 Insulin) 20 units subcut QPM [Pen [place]] use 2 pen needles daily 100 ea 0RF E11.9 - Type 2 diabetes mellitus without complications Refilled levothyroxine 200 mcg PO DAILY 90 tabs 3RF 90 days glipizide 10 mg (2 x 5 mg) PO BID 360 tabs 3RF Patient Instructions: - Go to the lab across the street to get your blood work done today. It is okay that you have already eaten. - Get your flu shot at your pharmacy. - Continue to check your blood pressure at home every day after resting for 5-10 minutes. - Keep your follow-up appointment with your office support specialist, Dr. Johns, next week. - Make sure to stay physically active while you are in [place]. - Schedule a follow-up appointment to see me in about 5 months, around March. - I have sent refills for your glipizide, levothyroxine, and pen needles to your pharmacy.
[2025-10-26 15:46] VITALS: BP 148/82; PULSE 75; RESP 18; TEMP 36.6; O2SAT 98; BMI 40.5
--- OUTSIDE RECORDS SUMMARY | 2025-10-27 01:10 | XMS_ITS | Patient Health Record ---
Author Organization [facility] Address [address] [place] [address] Care Team Providers Care Salvage Mechanic Name Role Phone Deon (RETIRED) Yarde ROPER Primary Care Provide Dat Desouza Jr Unavailable [phone] Allergies Allergen (clinical drug ingredient) Drug/Non Drug Allergy documented on EMR Reaction Allergy Type Onset Date Status Penicillin Unknown Drug Allergy Active Reason For Referral No Information Medications Medication SIG (Take, Route, Frequency, Duration) Notes Start Date End Date Status Melatonin 3 MG Tablet 1 tablet at bedtim e as needed Orally Once a day; Duration: 30 day(s) Active Lisinopril 5 MG Tablet Oral; Duration: 90 Active Trulicity 0.75 MG/0.5ML Solution Pen-injector INJECT 1 PEN SUBCUTANEOUSLY ONCE A WEEK Subcutaneous; Duration: 28 Activ e Simvastatin 20 MG Tablet TAKE 1 TABLET B Y MOUTH EVERY DAY Oral; Duration: 90 Active glipiZIDE 5 MG Tablet TAKE 2 TABLETS BY MOUTH TWICE A DAY Oral; Duration: 90 Active Levothyroxine Sodium 200 MCG Tablet Oral; Duration: 90 Active MiraLax (colon prep) 17 GM/SCOOP Powder mixed with Gatorade or Crystal Light Orally begin at 5:00 p.m. the day before the procedure; Duration: 1 day 03/12/2023 Active metFORMIN HCl 500 MG Tablet Oral; Duration: 90 Active Immunizations Vaccine Route Administration Date Status Comme nts Influenza Unknown 09/05/2022 Administered Social History Tobacco Use: Social History Observation Description Date Details (start date - stop date) Never Smoker NA - NA Social History Drugs/Alcohol: Social Info Question Answer Notes Alcohol Screen Did you have a drink containing alcohol in the past year? Yes How often did you have a drink containing alcohol in the past year? 2 to 4 times a month (2 points) How many drinks did you have on a typical day when you were drinking in the past year? 1 or 2 drinks (0 point) How often did you have 6 or more drinks on one occasion in the past year? Never (0 point) Points 2 Interpretation Negative Tobacco Use: Social Info Question Answer Notes Tobacco Use/Smoking Patient is a nonsmoker Additional Details Category Social Info Options Details Miscellaneous: Marital status: Occupation: semi retired Problems Problem Type SNOMED Code ICD Code Onset Dates Problem Status W/U Status Risk Notes Problem Colon cancer screening (527461656) Colon cancer screening (Z12.11) Active confirmed Problem Long-term current use of drug therapy ([id number]) jail (current) use of oral hypoglycemic drugs (Z79.84) Active confirmed Plan Of Treatment Future Test Test Name Order Date COLONOSCOPY 03/12/2023 Insurance Providers Payer Name Payer Address Payer Phone Subscriber Number Group Number Insured Name Patient Relationship to Insured Coverage Start Date Coverage End Date MEDICARE OF [place] [address] [place] [address] [phone] [id number] ROGER GAVIN Self - patient is the insured MED[employer] ATT[employer] CLAIMS [address] [place] [address] [phone] [id number] ROGER GAVIN Self - patient is the insured Medical (General) History Medical History History ICD Code Diabetes mellitus type 2 Hypertension Elevated cholesterol Hypothyroid Obstructive sleep apnea/CPAP Nephrolithiasis Surgical History Surgery Date(Month/Year) Hospitalization History Reason Date(Month/Year) kidney stones 03/30
== END 2025-10-26 16:12 | disposition home or self-care (01) ==
PROVIDERS: PCP Student in an Organized Health Care Education/Training Program; Visit Provider Student in an Organized Health Care Education/Training Program
DX: I50.20 Unspecified systolic (congestive) heart failure (principal); I10 Essential (primary) hypertension; E11.65 Type 2 diabetes mellitus with hyperglycemia; Z79.4 Long term (current) use of insulin; E78.49 Other hyperlipidemia; E03.9 Hypothyroidism, unspecified

== ENCOUNTER → 2025-10-26 15:33 | Outpatient (BNVA) | payer MEDICARE, SELFPAY | PROVIDERS: PCP Physician Assistant; Visit Provider Student in an Organized Health Care Education/Training Program | DX: E11.65 Type 2 diabetes mellitus with hyperglycemia (principal); I50.20 Unspecified systolic (congestive) heart failure; Z79.4 Long term (current) use of insulin; E78.49 Other hyperlipidemia; E03.9 Hypothyroidism, unspecified; Z95.0 Presence of cardiac pacemaker; Z79.82 Long term (current) use of aspirin; Z87.891 Personal history of nicotine dependence; I10 Essential (primary) hypertension | CPT/HCPCS: 99212 ==

== ENCOUNTER 2025-10-27 13:07 | Outpatient (REF) | payer MEDICARE, SELFPAY ==
[2025-10-27 16:09] LABS: MANUAL DIFF FLAG NO
[2025-10-27 16:29] LABS: Hematocrit 46.7 % (42.0-52.0); Hemoglobin 15.5 g/dl (14.0-18.0); Imm Gran Abs Auto 0.05 X10*3/uL (0.00-0.03); Imm Gran Pct Auto 0.7 % (0.0-0.4); Lymphocytes Absolute Auto 2.1 X10*3/uL (1.2-4.9); Mean Corpuscular HGB Conc 33.2 g/dl (31.0-36.0); Mean Corpuscular Hemoglobin 28.8 pg (27.0-33.0); Mean Corpuscular Volume 86.6 fL (80.0-98.0); NRBC Abs Auto 0.000 X10*3/uL (0.0-0.012); NRBC Pct Auto 0.0 /100WBC (0.0-0.2); Platelet Count 213 X10*3/uL (160-400); Red Blood Count 5.39 X10*6/uL (4.60-5.80); White Blood Count 7.4 X10*3/uL (4.8-10.8)
[2025-10-27 17:02] LABS: Microalbum/Creatinine Ratio Ur 342.3 ug/mg cr (<30)
[2025-10-27 18:05] LABS: Alanine Aminotransferase 31 U/L (0-40); Albumin Level 4.4 g/dL (3.5-5.0); Alkaline Phosphatase 72 U/L (39-117); Anion Gap 9 (12-20); Aspartate Amino Transferase 31 U/L (5-37); Blood Urea Nitrogen 25 mg/dL (9-16); Calcium 9.4 mg/dL (8.4-10.2); Carbon Dioxide 30 mmol/L (22-29); Chloride 107 mmol/L (96-108); Cholesterol 130 mg/dL (<200); Estimated Glomerular Filt Rate > 60; HDL Cholesterol 40 mg/dL (>40); Potassium 3.9 mmol/L (3.3-5.1); Sodium 142 mmol/L (135-145); Total Protein 7.0 g/dL (6.5-8.0); Triglycerides 163 mg/dL (<150)
[2025-10-28 05:38] LABS: HBS Num1 0.99 mIU/mL (0-7.99); HBc Num1 0.08 S/CO (0.00-0.79); HBsAGNum1 0.48 S/CO (0.00-0.99); HIV Num 1 0.06 S/CO (0.00-0.99); Hepatitis A Antibody IgM 0.33 Index (0-0.79); Hepatitis B Surface Antigen Negative (Negative); ~HepC Num1 0.17 S/CO (0.00-0.79); ~Hepatitis A Antibody IgM Nonreactive (Nonreactive); ~Hepatitis B Surface Antibody NONREACTIVE (Nonreactive); ~Hepatitis C Antibody Nonreactive (Nonreactive)
[2025-10-28 06:08] LABS: Syphilis Screen Nonreactive (Nonreactive)
== END 2025-10-27 13:08 | disposition home or self-care (01) ==
LOC: HO.HMGCLDS 13:07
PROVIDERS: PCP Student in an Organized Health Care Education/Training Program; Visit Provider Student in an Organized Health Care Education/Training Program
DX: Z00.00 Encounter for general adult medical examination without abnormal findings (principal); Z13.6 Encounter for screening for cardiovascular disorders; Z13.0 Encounter for screening for diseases of the blood and blood-forming organs and certain disorders involving the immune mechanism; Z13.21 Encounter for screening for nutritional disorder; Z13.29 Encounter for screening for other suspected endocrine disorder; Z13.1 Encounter for screening for diabetes mellitus
CPT/HCPCS: 36415; 80053; 80061; 82043; 82306; 82570; 83036; 84443; 85025; 86704; 86706; 86709; 86780; 86803; 87340; 87389

== ENCOUNTER 2025-11-10 13:21 | Outpatient (AMB) | payer MEDICARE, SELFPAY ==
--- NOTE | 2025-11-10 13:23 | A.OFFVIS_ITS ---
Vital Signs 11/10/25 13:24 Height 6 ft Weight 295 lb 6.711 oz BMI 40.1 BP 146/80 H Blood Pressure Location Lt brachial Position Sitting Pulse 84 Intake Visit Reasons: 6 mth w/ med ck and s/p echo Intake Note: 6 month follow-up after echo feeling good [place] Required: No Allergies ibuprofen (From Motrin) Adverse Reaction (Mild, Verified 10/26/25 15:39) NAUSEA & VOMITING PCN Allergy (Unknown, Uncoded 03/19/25 15:43) unknown reaction Medication List - Last Reconciled 11/10/25 by Yovany Mirza MD aspirin 81 mg PO DAILY blood-glucose,marketing agent,cont (FreeStyle Fox 3 [place]) As directed carvedilol (Coreg) 12.5 mg PO BID cholecalciferol (vitamin D3) 1,250 mcg PO QWEEK 12 weeks dulaglutide (Trulicity) 3 mg (0.5 mL) subcut QWEEK 4 weeks FreeStyle Fox 3 Plus Sensor (blood-glucose sensor) every 15 days NS furosemide 20 mg PO DAILY glipizide 10 mg (2 x 5 mg) PO BID insulin glargine (Lantus Solostar U-100 Insulin) 20 units subcut QPM levothyroxine 200 mcg PO DAILY 90 days metformin 500 mg PO BID pen needle, diabetic (Ultra-Fine Pen Needle) As directed [Pen [place] use 2 pen needles daily ] rosuvastatin 20 mg PO DAILY 90 days sacubitril-valsartan 49-51 mg 1 tab PO BID HPI Comments Details: Eze comes for follow-up. He said he has been feeling really well. He has been doing exertional workload climbing flights of stairs without worsening shortness of breath. He has no orthopnea, PND, leg edema. His remote device monitoring has shown no evidence of heart failure. He is taking all his medications. Last echocardiogram showing LVEF of 35-40% which is marginally improved. He is taking all his medications. No lightheadedness, syncope. No prolonged palpitation, irregular heartbeat, ICD discharge. [facility] Medical History Nicotine dependence, cigarettes, uncomplicated Biventricular implantable cardioverter-defibrillator (ICD) in situ Nonischemic cardiomyopathy Heart failure with reduced ejection fraction HLD (hyperlipidemia) HTN (hypertension) Diabetes Hypothyroid CONCEPCION (obstructive sleep apnea) Tubular adenoma of colon Nephrolithiasis Surgical History S/P cardiac cath History of tonsillectomy History of lithotripsy History of colonoscopy (~04/10/23) Family History Father Lung cancer Mother Hx of CABG Social History Housing: [facility] Alcohol intake: current Alcohol intake frequency: holidays/special occasions only Patient Tobacco Use Status: Former Tobacco user Years Smoked: 45 years e-Cigarette/Vaping Use: Never Used service: No Current occupational status: employed and retired 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 Cognitive needs: No Hearing needs: No Vision needs: Yes (rx glasses) Review of Systems Const Denies chills, Denies fatigue, Denies fever(s), Denies frequent falls, Denies weakness, Denies weight gain and Denies weight loss ENT Denies dizziness Card Denies chest pain, Denies leg edema, Denies lightheadedness, Denies palpitations, Denies dyspnea, Denies dyspnea on exertion, Denies orthopnea and Denies other (loss of consciousness) Resp Denies cough, Denies dyspnea and Denies dyspnea on exertion GI Denies hematochezia and Denies change in stool character Musc Denies abnormal gait, Denies muscle weakness, Denies numbness, Denies radiating pain into limb and Denies tingling Neuro Denies abnormal gait, Denies dizziness, Denies frequent falls, Denies numbness, Denies tingling and Denies weakness Endo Denies fatigue and Denies palpitations Physical Exam Vital Signs: Last Vital Signs Pulse 84 11/10/25 13:24 BP 146/80 H 11/10/25 13:24 BMI result Body Mass Index 40.1 Const General: cooperative, healthy appearing, comfortable and no acute distress Orientation/consciousness: patient oriented x3 Neck Neck: Yes normal visual inspection and Yes no JVD Resp Effort & Inspection: normal respiratory effort Auscultation: clear to auscultation bilaterally, no crackles, no rales, no rhonchi and no wheezes Cardio Jugular venous distension: no JVD Rate: regular rate Rhythm: regular rhythm Heart sounds: S1 normal heart sound present, S2 normal heart sound present, no murmurs and no rubs Neuro General: patient oriented x3 Extrem General: Yes normal to inspection, No no pedal edema and No calf tenderness Psych Appearance: grossly normal Mental Status: mental status grossly normal Speech and movement: Normal speech and movement present Assessment & Plan Assessment & Plan (1) Nonischemic cardiomyopathy: Code(s): I42.8 - Other cardiomyopathies Category: Medical Plan: Cardiomyopathy, nonischemic without overt heart failure with moderate LV systolic dysfunction on current medical therapy and after cardiac r esynchronization therapy. He does not require decongestive therapy with Lasix as he has had no overt heart failure syndrome. Will reduce Lasix to 20 mg 3 times a week and eventually discontinue as long as he has no progressive signs of congestion. Discussed signs and symptoms of heart failure. Daily weight monitoring was discussed. Importance of compliance with medication was discussed. Continue current neurohormonal modulation with carvedilol, Entresto therapy. Can consider adding Jardiance therapy to his regimen. (2) CAD (coronary artery disease): Comment: Per Cardiology Code(s): I25.10 - Atherosclerotic heart disease of [place] coronary artery without angina pectoris Category: Medical Plan: Nonobstructive CAD without any symptoms. Continue aggressive risk factor modification. Continue low-dose aspirin therapy as well as rosuvastatin therapy which she is tolerating well. Continue to monitor LDL with target goal LDL less than 70 mg/dL. Continue aggressive blood pressure control which is currently well optimized. Diabetes management under your care with goal hemoglobin A1c less than 7%. (3) Biventricular implantable cardioverter-defibrillator (ICD) in situ: Comment: [employer], 06/18/2024 Code(s): Z95.810 - Presence of automatic (implantable) cardiac defibrillator Category: Medical Plan: Biventricular ICD in place, tolerating well. Will follow remotely every month for heart failure as well as for device check every 3 months. Follow up in the clinic in 6 months time, sooner PRN. Thank you for allowing me to partake in his care Medications: Changed From furosemide 20 mg PO DAILY To furosemide 20 mg PO .three times a week Coding Level of Care Code Est Pt Level 4 (77126) Diagnoses Nonischemic cardiomyopathy I42.8 CAD (coronary artery disease) I25.10 Biventricular implantable cardioverter-defibrillator (ICD) in situ Z95.810
[2025-11-10 13:24] VITALS: BP 146/80; PULSE 84; BMI 40.1
--- OUTSIDE RECORDS SUMMARY | 2025-11-10 14:30 | XMS_ITS | Patient Health Record ---
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) use of oral hypoglycemic drugs (Z79.84) Active confirmed Plan Of Treatment Future Test Test Name Order Date COLONOSCOPY 03/12/2023 Insurance Providers Payer Name Payer Address Payer Phone Subscriber Number Group Number Insured Name Patient Relationship to Insured Coverage Start Date Coverage End Date MEDICARE OF [place] [address] [place] [address] [id number] ROGER GAVIN Self - patient is the insured [employer] ATTN CLAIMS [address] [place] [phone] [id number] ROGER GAVIN Self - patient is the insured Medical (General) History Medical History History ICD Code Diabetes mellitus type 2 Hypertension Elevated cholesterol Hypothyroid Obstructive sleep apnea/CPAP Nephrolithiasis Surgical History Surgery Date(Month/Year) Hospitalization History Reason Date(Month/Year) kidney stones 03/30
== END 2025-11-10 13:48 | disposition home or self-care (01) ==
PROVIDERS: PCP Student in an Organized Health Care Education/Training Program; Visit Provider Internal Medicine Cardiovascular Disease
DX: I42.8 Other cardiomyopathies (principal); I25.10 Atherosclerotic heart disease of native coronary artery without angina pectoris; Z95.810 Presence of automatic (implantable) cardiac defibrillator
CPT/HCPCS: 99214

== ENCOUNTER → 2025-11-10 13:21 | Outpatient (BNVA) | payer MEDICARE, SELFPAY | PROVIDERS: PCP Internal Medicine; Visit Provider Internal Medicine Cardiovascular Disease | DX: I42.8 Other cardiomyopathies (principal); I25.10 Atherosclerotic heart disease of native coronary artery without angina pectoris; Z95.810 Presence of automatic (implantable) cardiac defibrillator | CPT/HCPCS: 99212 ==